=== PATIENT | female | born 1980 | race Caucasian/White ===

== ENCOUNTER → 2016-12-12 | Outpatient (CLI) | payer BC | LOC: M PAIN 13:20 | PROVIDERS: ATTEND Nurse Practitioner Family | DX: Z09 Encounter for follow-up examination after completed treatment for conditions other than malignant neoplasm (principal); G89.29 Other chronic pain; M79.1 Myalgia; M50.93 Cervical disc disorder, unspecified, cervicothoracic region; M54.5 Low back pain; G43.909 Migraine, unspecified, not intractable, without status migrainosus; E03.9 Hypothyroidism, unspecified; G40.A09 Absence epileptic syndrome, not intractable, without status epilepticus; F32.9 Major depressive disorder, single episode, unspecified; F41.9 Anxiety disorder, unspecified; J45.990 Exercise induced bronchospasm; Z88.2 Allergy status to sulfonamides; Z88.5 Allergy status to narcotic agent; Z88.8 Allergy status to other drugs, medicaments and biological substances; Z79.899 Other long term (current) drug therapy ==

== ENCOUNTER → 2016-12-21 | Outpatient (CLI) | payer BC ==
--- NOTE | 2016-12-23 08:40 | REP ---
MR LUMBAR SPINE WITHOUT CONTRAST: HISTORY: Back pain. Decreased signal intensity on T2-weighted images is present in the L4-5 intervertebral disc. The disc is decreased in height. These findings are consistent with disc degeneration. There is no disc bulge or herniation at the L1-2 through L3-4 and L5-S1 levels. There is hypertrophy of the posterior articulating facets at the L5-S1 level. The nerves exit the neural foramina without compression. A diffuse disc bulge is present at the L4-5 level. There is minimal compression of the thecal sac. The L4 nerves exit the neural foramina without compression. The conus medullaris is normal in appearance terminating at the level of the T12-L1 intervertebral disc. Normal signal intensity is present in the lumbar vertebral bodies. IMPRESSION: Diffuse disc bulge at the L4-5 level with minimal thecal sac compression. Signed by Olivier Navarro MD 12/23/2016 08:53 A
== END ==
LOC: M RAD 09:14
PROVIDERS: ATTEND Nurse Practitioner Family
DX: M51.26 Other intervertebral disc displacement, lumbar region (principal)

== ENCOUNTER → 2017-01-15 | Outpatient (CLI) | payer BC ==
--- NOTE | 2017-01-24 00:28 | ECWPNPC ---
PATIENT NAME: EILEEN MARCUS : 1980 GENDER: FEMALE VISIT DATE: 01/15/2017 DISCHARGE DATE: 01/15/17 1018 VISIT LOCKED DATE TIME: PHYSICIAN: YESENIA GARCIA RESOURCE: YESENIA GARCIA REASON FOR APPOINTMENT 1. POPST MRI-BACK HISTORY OF PRESENT ILLNESS HISTORY OF PRESENT ILLNESS: PAIN THE PATIENT DESCRIBES THE PAIN... FALL RISK SCREENING: SCREENING :NO FALLS IN THE PAST YEAR TODAY'S VISIT: NOTES: RATES PAIN TODAY 5/10. DESCRIBES PAIN INTERMITTENT ACHING AND SORE PAIN IS CENTERED IN LOW BACK WITH RADIATION TO BILATERAL HIPS. NO RADIATION TO LEGS. IS HAVING SPASMS WHICH CAN MAKE HER STOP WALKING WHICH ARE CENTERED IN LOW BACK. DENIES ANY NUMBNESS OR TINGLING INTO THE LEGS OR FEET.. CURRENT MEDICATIONS TAKING VITAMIN D3 5000 UNIT TABLET 1 TABLET ORALLY ONCE A DAY TAKING AMETHIA 0.15-0.03 &0.01 MG TABLET 1 TABLET ORALLY ONCE A DAY TAKING KEPPRA 500 MG TABLET 1 TAB ORALLY EVERY 12 HRS TAKING BUSPAR 10 MG TABLET 1 TABLET ORALLY TWICE A DAY TAKING ADDERALL 15 MG TABLET 1 TABLET IN THE MORNING ORALLY ONCE A DAY TAKING EFFEXOR 75 MG TABLET 1 TABLET WITH FOOD ORALLY ONE IN MORNING, 2 AT NIGHT TAKING ABILIFY 5 MG TABLET 1 TABLET ORALLY ONCE A DAY TAKING SYNTHROID 125 MCG TABLET 1 TABLET ORALLY ONCE A DAY TAKING PROPRANOLOL HCL 10 MG TABLET 1 TABLET ORALLY BEFORE BEDTIME TAKING L-METHYLFOLATE FORTE 15-90.314 MG CAPSULE 1 CAPSULE ORALLY ONCE A DAY TAKING MAXALT-CONTACT LENS FLASHING PUNCHER 10 MG TABLET DISPERSIBLE 1 TABLET ON THE TONGUE AND ALLOW TO DISSOLVE NEEDED ONE TIME ORALLY ONCE A DAY TAKING EXCEDRIN MIGRAINE 250-250-65 MG TABLET 2 TABLETS NEEDED ORALLY EVERY 6 HRS TAKING XANAX 0.5 MG TABLET 1 TABLET ORALLY DAILY NEEDED, NOTES: NONE LATELY TAKING VENTOLIN HFA 108 (90 BASE) MCG/ACT AEROSOL SOLUTION 2 PUFFS NEEDED INHALATION EVERY 4 HRS, NOTES: NONE LATELY TAKING PRAZOSIN HCL 1 MG CAPSULE 1 CAPSULE AT BEDTIME ORALLY ONCE A DAY DISCONTINUED BELSOMRA TABLET ORALLY 20 MG AT BEDTIME, NOTES: 11/12/16 DISCONTINUED REMERON 30 MG TABLET 1 TABLET BEFORE BEDTIME IN THE EVENING ORALLY ONCE A DAY DISCONTINUED HYDROXYZINE HCL 50 MG TABLET 2 TABLET NEEDED ORALLY BEFORE BEDTIME DISCONTINUED TEMAZEPAM 30 MG CAPSULE 1 CAPSULE AT BEDTIME NEEDED ORALLY ONCE A DAY MEDICATION LIST REVIEWED AND RECONCILED WITH THE PATIENT PAST MEDICAL HISTORY RECURRENT FEVER MIGRAINES HYPOTHYROIDISM ABSENT SEIZURES ANXIETY DEPRESSION CHRONIC NECK AND LOW BACK PAIN EXERCISE-INDUCED INHALER KIDNEY STONES ALLERGIES SULFA (FOR ALLERGY USE ONLY): RASH: ALLERGY LAMICTAL: RASH: ALLERGY VICODIN: VOMITING: SIDE EFFECTS SURGICAL HISTORY TONSILLECTOMY ABOUT 1984 ADENOIDS REMOVED ABOUT 1984 ROSHNI PLANTAR FASCITIS RELEASE 2012 OR 2013 SOCIAL HISTORY GENERAL: TOBACCO USE ARE YOU A:NONSMOKER LEARNING BARRIERS / SPECIAL NEEDS ORIENTED TO PLAN OF CARE: PATIENT, PAIN MANAGEMENT PATIENT, ORIENTED TO PLAN OF CARE: PATIENT, PAIN MANAGEMENT PATIENT. NEW PATIENT PAIN DIARY TODAY'S VISITNOTES FROM 0-10, WHAT LEVEL IS YOUR PAIN TODAY?0 PAIN CLINIC PFS, CLERGY, PUBLIC HEALTH REFERRALS PFS REFERRAL NEEDED?NO CLERGY REFERRAL NEEDED?NO PUBLIC HEALTH REFERRAL NEEDED?NO WAS THE PROVIDER NOTIFIED OF ANY PERTINENT INFO?NO PFS REFERRAL NEEDED?NO CLERGY REFERRAL NEEDED?NO PUBLIC HEALTH REFERRAL NEEDED?NO WAS THE PROVIDER NOTIFIED OF ANY PERTINENT INFO?NO HOSPITALIZATION/MAJOR DIAGNOSTIC PROCEDURE RELATED TO SURGERY CHILDBIRTH 2007 REVIEW OF SYSTEMS CONSTITUTIONAL: ANY CHANGE IN YOUR MEDICAL CONDITION? NO . PATIENT COMPLAINING OF INCEREASED FREQUENCY AND URGENCY. NO SIGNS OF UTI. . CHILLS NO . FEVER NO . INFECTION: DO YOU HAVE NEW INFECTIONS? NO . DO YOU HAVE HISTORY OF MRSA? NO . MUSCULOSKELETAL: ANY NEW PATTERNS OF PAIN OR NUMBNESS? NO . GASTROENTEROLOGY: ANY NEW CHANGE IN BOWEL CONTROL? NO . GENITOURINARY: ANY NEW CHANGE IN BLADDER CONTROL? NO . IS THERE A CHANCE YOU COULD BE ? NO . HEMATOLOGY/LYMPH: DO YOU TAKE ANY BLOOD THINNERS? (FOR EXAMPLE- COUMADIN, PLAVIX, AGGRENOX, PLATEL, PRADAXA, OR XARELTO) NO . WHEN WAS YOUR LAST DOSE? DATE: TIME: . NEUROLOGY: HAVE YOU FALLEN IN THE PAST 6 MONTHS? NO . ANY NEW EXTREMITY NUMBNESS OR WEAKNESS? NO . CARDIOLOGY: DO YOU HAVE A PACEMAKER OR DEFIBRILLATOR? NO . RESPIRATORY: HAVE YOU BEEN SICK IN THE PAST WEEK? NO . FEVER NO . FLU LIKE SYMPTOMS? NO . COUGH NO . INTEGUMENTARY: DO YOU HAVE ANY RASHES OR OPEN SORES? NO . ALLERGIC/IMMUNO: ARE YOU ALLERGIC TO SHELLFISH OR IV DYE? NO . ANY NEW ALLERGIES? NO . PSYCHIATRIC: DO YOU HAVE THOUGHTS OF HURTING YOURSELF OR SOMEONE ELSE? NO . ARE YOU ABUSED, NEGLECTED, OR IN AN UNSAFE ENVIRONMENT? NO . ENDOCRINOLOGY: ARE YOU DIABETIC? NO . OTHER: DO YOU NEED ANY PRESCRIPTIONS? NO . IF YES, PLEASE LIST: ____ . ANY NEW PROBLEMS WITH YOUR MEDICATIONS? NO . WHEN DID YOU LAST EAT? ____ . WHEN DID YOU LAST DRINK? ____ . WHAT DID YOU LAST DRINK? ____ . NAME OF PERSON DRIVING YOU HOME? ____ . DO YOU HAVE ANY OTHER QUESTIONS OR CONCERNS NO . REVIEWED BY: PROVIDER: YESENIA GONZALEZ . VITAL SIGNS WT 250 LBS, HT 63", BMI 44.28 INDEX, BP 125/86 MM HG, HR 91 /MIN, RR 16 /MIN, TEMP 98.0 F, OXYGEN SAT % 100, NA INITIALS TL 0931. EXAMINATION GENERAL EXAMINATION: PSYCHALERT , ORIENTED X 3 , APPROPRIATE MOOD AND AFFECT . LUNGS:CLEAR TO AUSCULTATION BILATERALLY. HEART:HEART RATE REGULAR. MUSCULOSKELETAL:CAN FLEX TO 45 DEGREES, EXTEND TO 5 DEGREES AND ROTATE APPROXIMATELY 50%., POINT TENDERNESS OVER LUMBAR SPINOUS PROCESSES AND ACROSS THE LUMBOSACRAL AXIS. TRIGGER POINTS AND TIGHT FIBROUS BANDS ARE IDENTIFIED OVER LUMBAR PARAVERTEBRAL MUSCLES AND ACROSS THE SACRUM. DECREASED RANGE OF MOTION IS NOTED WITH FLEXION AND EXTENSION AND ROTATION. POSTURE IS UPRIGHT GAIT IS SLOW BUT NONANTALGIC. MUSCLE STRENGTH TESTING 5/5 BILATERAL LOWER EXTREMITIES. . DIAGNOSTIC TESTS REVIEWEDMRI OF LUMBAR SPINE COMPLETED 12/21/16. REVIEWED - DEMONSTRATES DIFFUSE DISC BULGE AT THE L4-5 LEVEL WITH MIN THECAL SAC COMPRESSION. THERE IS ALSO HYPERTROPHY AT THE L1-2 THROUGH L3-4 AND L5-S1 LEVELS . ASSESSMENTS LUMBAR FACET ARTHROPATHY - M12.88 (PRIMARY) MYALGIA - M79.1 LOW BACK PAIN - M54.5 TREATMENT LUMBAR FACET ARTHROPATHY INJECTION FACET JOINT/NERVE REHAN/YESENIA CRANDALL 01/15/2017 10:02:21 AM > BILATERAL THERAPEUTIC NOTES: PHYSICAL ACTIVITY 10 MINUTES A DAY.,FACET JOINT INJECTION: YOUR EXPERIENCE MATERIAL WAS PRINTED. PROCEDURE CODES FA211 ESTABILISHED PATIENT [facility] FACILITY CHARGE DISPOSITION & COMMUNICATION FOLLOW UP AFTER INJECTION (REASON: CHECK AUTH FOR BILATERAL LUMBAR FACET BLOCK- THERAPEUTIC) ELECTRONICALLY SIGNED BY ANGEL BARKER ON 01/23/2017 AT 09:13 AM EST DISCLAIMER : THIS IS A VISIT SUMMARY EXTRACTED FROM THE [employer] CHART. IT IS NOT A COPY OF THE [employer] PROGRESS NOTE. CRYSTAL
== END ==
LOC: M PAIN 09:00
PROVIDERS: ATTEND Nurse Practitioner Family
DX: Z09 Encounter for follow-up examination after completed treatment for conditions other than malignant neoplasm (principal); G89.29 Other chronic pain; M12.88 Other specific arthropathies, not elsewhere classified, other specified site; M79.1 Myalgia; M50.93 Cervical disc disorder, unspecified, cervicothoracic region; E03.9 Hypothyroidism, unspecified; F41.9 Anxiety disorder, unspecified; F32.9 Major depressive disorder, single episode, unspecified; J45.990 Exercise induced bronchospasm; M51.26 Other intervertebral disc displacement, lumbar region; Z88.2 Allergy status to sulfonamides; Z88.5 Allergy status to narcotic agent; Z88.8 Allergy status to other drugs, medicaments and biological substances; Z79.899 Other long term (current) drug therapy; Z86.69 Personal history of other diseases of the nervous system and sense organs

== ENCOUNTER → 2017-02-06 | Outpatient (CLI) | payer BC ==
[~2017-02-06] MED LIST: BUPIVACAINE HCL 0.25% 30 ML VIAL As Ordered ONE; ISOVUE-M 300 61% 15ML VIAL (Q9967) As Ordered ONE; LIDOCAINE 1% SDV INJ 30 ML VIAL As Ordered ONE; ONDANSETRON 4MG/2ML VIAL (J2405) As Ordered ONE; TRIAMCINOLONE ACETONIDE SUSP 40 MG/ML VIAL (J3301) As Ordered ONE; diazePAM 5 MG TAB As Ordered ONE; oxyCODONE 5MG TAB As Ordered ONE
--- NOTE | 2017-02-06 15:04 | REP ---
PARTIAL SI JOINT SERIES: FOUR VIEWS. HISTORY: Injection procedure for pain. 46 seconds of fluoroscopy time is reported. FINDINGS: A sequence of four fluoroscopically-obtained procedural spot radiographs of the SI joints bilaterally document various needle positions and contrast injections associated with SI joint injection procedure. Signed by Neil Baeza MD 02/06/2017 04:27 P
--- NOTE | 2017-02-15 23:28 | ECWPNPC ---
PATIENT NAME: EILEEN MARCUS : 1980 GENDER: FEMALE VISIT DATE: 02/06/2017 DISCHARGE DATE: 02/06/17 1414 VISIT LOCKED DATE TIME: PHYSICIAN: LOTUS ROBERT RESOURCE: LOTUS ROBERT REASON FOR APPOINTMENT 1. BILATERAL THER. FACET HISTORY OF PRESENT ILLNESS HISTORY OF PRESENT ILLNESS: PAIN THE PATIENT DESCRIBES THE PAIN... FALL RISK SCREENING: SCREENING :NO FALLS IN THE PAST YEAR CURRENT MEDICATIONS TAKING VITAMIN D3 5000 UNIT TABLET 1 TABLET ORALLY ONCE A DAY, NOTES: 02-05-17 PM TAKING AMETHIA 0.15-0.03 &0.01 MG TABLET 1 TABLET ORALLY ONCE A DAY, NOTES: 02-05-17 PM TAKING KEPPRA 500 MG TABLET 1 TAB ORALLY EVERY 12 HRS, NOTES: 02-06-17899 TAKING BUSPAR 10 MG TABLET 1 TABLET ORALLY TWICE A DAY, NOTES: 02-06-17899 TAKING ADDERALL 15 MG TABLET 1 TABLET IN THE MORNING ORALLY ONCE A DAY, NOTES: 02-06-17899 TAKING EFFEXOR 75 MG TABLET 1 TABLET WITH FOOD ORALLY TWO IN MORNING, 1 AT NIGHT, NOTES: 02-06-17899 TAKING ABILIFY 5 MG TABLET 1 TABLET ORALLY ONCE A DAY, NOTES: 02-05-17 PM TAKING SYNTHROID 125 MCG TABLET 1 TABLET ORALLY ONCE A DAY, NOTES: 02-06-17899 TAKING PROPRANOLOL HCL 10 MG TABLET 1 TABLET ORALLY BEFORE BEDTIME, NOTES: 02-05-17 PM TAKING L-METHYLFOLATE FORTE 15-90.314 MG CAPSULE 1 CAPSULE ORALLY ONCE A DAY, NOTES: 02-06-17899 TAKING MAXALT-STRINGING MACHINE OPERATOR 10 MG TABLET DISPERSIBLE 1 TABLET ON THE TONGUE AND ALLOW TO DISSOLVE NEEDED ONE TIME ORALLY ONCE A DAY, NOTES: NONE TAKING EXCEDRIN MIGRAINE 250-250-65 MG TABLET 2 TABLETS NEEDED ORALLY EVERY 6 HRS, NOTES: NONE TAKING XANAX 0.5 MG TABLET 1 TABLET ORALLY DAILY NEEDED, NOTES: NONE LATELY TAKING VENTOLIN HFA 108 (90 BASE) MCG/ACT AEROSOL SOLUTION 2 PUFFS NEEDED INHALATION EVERY 4 HRS, NOTES: NONE LATELY TAKING PRAZOSIN HCL 1 MG CAPSULE 1 CAPSULE AT BEDTIME ORALLY ONCE A DAY, NOTES: 02-05-17899 MEDICATION LIST REVIEWED AND RECONCILED WITH THE PATIENT PAST MEDICAL HISTORY RECURRENT FEVER MIGRAINES HYPOTHYROIDISM ABSENT SEIZURES ANXIETY DEPRESSION CHRONIC NECK AND LOW BACK PAIN EXERCISE-INDUCED INHALER KIDNEY STONES ALLERGIES SULFA (FOR ALLERGY USE ONLY): RASH: ALLERGY LAMICTAL: RASH: ALLERGY VICODIN: VOMITING: SIDE EFFECTS SOCIAL HISTORY GENERAL: TOBACCO USE ARE YOU A:NONSMOKER LEARNING BARRIERS / SPECIAL NEEDS ORIENTED TO PLAN OF CARE: PATIENT, PAIN MANAGEMENT PATIENT, ORIENTED TO PLAN OF CARE: PATIENT, PAIN MANAGEMENT PATIENT. NEW PATIENT PAIN DIARY TODAY'S VISITNOTES FROM 0-10, WHAT LEVEL IS YOUR PAIN TODAY?0 PAIN CLINIC PFS, CLERGY, PUBLIC HEALTH REFERRALS PFS REFERRAL NEEDED?NO CLERGY REFERRAL NEEDED?NO PUBLIC HEALTH REFERRAL NEEDED?NO WAS THE PROVIDER NOTIFIED OF ANY PERTINENT INFO?NO PFS REFERRAL NEEDED?NO CLERGY REFERRAL NEEDED?NO PUBLIC HEALTH REFERRAL NEEDED?NO WAS THE PROVIDER NOTIFIED OF ANY PERTINENT INFO?NO REVIEW OF SYSTEMS CONSTITUTIONAL: ANY CHANGE IN YOUR MEDICAL CONDITION? NO . CHILLS NO . FEVER NO . INFECTION: DO YOU HAVE NEW INFECTIONS? NO . DO YOU HAVE HISTORY OF MRSA? NO . MUSCULOSKELETAL: ANY NEW PATTERNS OF PAIN OR NUMBNESS? NO . GASTROENTEROLOGY: ANY NEW CHANGE IN BOWEL CONTROL? NO . GENITOURINARY: ANY NEW CHANGE IN BLADDER CONTROL? NO . IS THERE A CHANCE YOU COULD BE ? NO . HEMATOLOGY/LYMPH: DO YOU TAKE ANY BLOOD THINNERS? (FOR EXAMPLE- COUMADIN, PLAVIX, AGGRENOX, PLATEL, PRADAXA, OR XARELTO) NO . WHEN WAS YOUR LAST DOSE? DATE: TIME: . NEUROLOGY: HAVE YOU FALLEN IN THE PAST 6 MONTHS? YES . ANY NEW EXTREMITY NUMBNESS OR WEAKNESS? NO . CARDIOLOGY: DO YOU HAVE A PACEMAKER OR DEFIBRILLATOR? NO . RESPIRATORY: HAVE YOU BEEN SICK IN THE PAST WEEK? NO . FEVER NO . FLU LIKE SYMPTOMS? NO . COUGH NO . INTEGUMENTARY: DO YOU HAVE ANY RASHES OR OPEN SORES? NO . ALLERGIC/IMMUNO: ARE YOU ALLERGIC TO SHELLFISH OR IV DYE? NO . ANY NEW ALLERGIES? NO . PSYCHIATRIC: DO YOU HAVE THOUGHTS OF HURTING YOURSELF OR SOMEONE ELSE? NO . ARE YOU ABUSED, NEGLECTED, OR IN AN UNSAFE ENVIRONMENT? NO . ENDOCRINOLOGY: ARE YOU DIABETIC? NO . OTHER: DO YOU NEED ANY PRESCRIPTIONS? NO . IF YES, PLEASE LIST: ____ . ANY NEW PROBLEMS WITH YOUR MEDICATIONS? NO . WHEN DID YOU LAST EAT? 3-9-17 0330 . WHEN DID YOU LAST DRINK? 02-06-17 0900 . WHAT DID YOU LAST DRINK? WATER . NAME OF PERSON DRIVING YOU HOME? LILA SYLVER . DO YOU HAVE ANY OTHER QUESTIONS OR CONCERNS NO . REVIEWED BY: PROVIDER: . VITAL SIGNS WT 250 LBS, HT 63", BMI 44.28 INDEX, BP 128/84 MM HG, HR 84 /MIN, RR 18 /MIN, TEMP 97.0 F, OXYGEN SAT % 99, NA INITIALS TL 1108, REVIEWED BY: CM. ASSESSMENTS SACROILIITIS, NOT ELSEWHERE CLASSIFIED - M46.1 (PRIMARY) PROCEDURES PN SI PRE PROCEDURE DIAGNOSIS SACROILIITIS, SACROILIAC JOINT DYSFUNCTION POST PROCEDURE DIAGNOSIS SACROILIITIS, SACROILIAC JOINT DYSFUNCTION PROCEDURE ., BILATERAL SACROILIAC JOINT BLOCK SURGEON DR. LOTUS ROBERT LAW SECRETARY NONE ANESTHESIA LOCAL PRE PROCEDURE NOTE PATIENT WITH HISTORY OF CHRONIC LOW BACK PAIN. I EVALUATED THE PATIENT AND REVIEWED THE CHART. I WENT OVER THE RISKS, ALTERNATIVES, AND BENEFITS ASSOCIATED WITH THIS PROCEDURE. THE PATIENT WOULD LIKE TO PROCEED AND GAVE CONSENT TO PERFORM THE PROCEDURE. THE PATIENT DENIES UNEXPLAINABLE WEIGHT LOSS, FEVER, CHILLS, OR NEW CHANGES IN URINARY OR BOWEL CONTROL. DESCRIPTION OF PROCEDURE THE PATIENT WAS BROUGHT TO THE PROCEDURE ROOM AND PLACED IN THE PRONE POSITION. THE LUMBOSACRAL AREA WAS CLEANED WITH CHLORAPREP SOLUTION AND DRAPED ASEPTICALLY. THE PROCEDURE WAS DONE UNDER STERILE CONDITIONS. I CHECKED LATERALITY AND THE LEVEL WHERE THE PROCEDURE WAS GOING TO BE PERFORMED WITH THE PATIENT AND THE SUPPORTING STAFF AT THE MOMENT OF THE TIME OUT IN THE PROCEDURE ROOM. UNDER FLUOROSCOPIC GUIDANCE, TARGET POINT WAS SELECTED AT THE LOWER BORDER OF THE RIGHT AND LEFT SACROILIAC JOINT. TARGET POINT WAS SELECTED AFTER MEDIAL ROTATION AND TILT OF THE MAGNIFIER OF THE C-ARM. LIDOCAINE WAS USED TO NUMB THE SKIN AND SUBCUTANEOUS TISSUE BELOW IT. A SPINAL NEEDLE, 22-GAUGE, WAS ADVANCED UNDER FLUOROSCOPIC GUIDANCE AND FOLLOWING PATIENT FEEDBACK UNTIL THE TARGET AREA WAS TOUCHED. THE POSITION OF THE NEEDLE WAS VERIFIED WITH AP AND LATERAL VIEWS. AFTER PROPER POSITION OF THE NEEDLE WAS ACHIEVED, ISOVUE M DYE 30%, 0.25 ML, WAS INJECTED SHOWING SPREAD OF THE DYE. THEN, A SOLUTION OF 20 MG OF KENALOG WAS INJECTED IN RIGHT JOINT WITH 3 ML OF BUPIVACAINE 0.125%. THERE WAS NO EVIDENCE OF BLOOD, PARESTHESIA OR CEREBROSPINAL FLUID DURING THE PROCEDURE. THE PATIENT WAS SENT TO THE RECOVERY ROOM. THE PATIENT WAS MOVING THE EXTREMITIES AND DOING WELL. THERE WAS NO COMPLICATION DURING THE PROCEDURE. FLUOROSCOPY TIME WAS 46 SECONDS POST PROCEDURE NOTE THE PATIENT WILL BE SEEN IN A FOLLOW UP IN THE NEXT FEW WEEKS. INSTRUCTIONS WERE GIVEN, QUESTIONS WERE ANSWERED, AND THE PATIENT EXPRESSED UNDERSTANDING AND AGREED WITH THE PLAN. INSTRUCTIONS WERE GIVEN, QUESTIONS WERE ANSWERED, PATIENT REPORTS UNDERSTANDING AND AGREES WITH THE PLAN. I, BUTCH LAURENT, DOCUMENTED THE ABOVE INFORMATION ACTING A SCRIBE FOR DR. ROBERT. I HAVE REVIEWED THE ABOVE DOCUMENT, WRITTEN BY BUTCH LAURENT SCRIBE AND I VERIFY THAT IT IS ACCURATE. DIAGNOSTIC IMAGING [facility] FLUORO GUIDANCE (PAIN)[id number] PROCEDURE CODES 20213 INJECT SACROILIAC JOINT 6045F RADXPS IN END [id number] PXD DISPOSITION & COMMUNICATION FOLLOW UP 3 WEEKS ELECTRONICALLY SIGNED BY LOTUS ROBERT MD ON 02/15/2017 AT 08:41 PM EDT DISCLAIMER : THIS IS A VISIT SUMMARY EXTRACTED FROM THE [employer] CHART. IT IS NOT A COPY OF THE [employer] PROGRESS NOTE. MTDSoto
== END ==
LOC: M PAIN 11:10
PROVIDERS: ATTEND Anesthesiology
DX: G89.29 Other chronic pain (principal); M46.1 Sacroiliitis, not elsewhere classified; G43.909 Migraine, unspecified, not intractable, without status migrainosus; E03.9 Hypothyroidism, unspecified; F32.9 Major depressive disorder, single episode, unspecified; F41.9 Anxiety disorder, unspecified; Z88.2 Allergy status to sulfonamides; Z88.5 Allergy status to narcotic agent; Z88.8 Allergy status to other drugs, medicaments and biological substances; Z79.01 Long term (current) use of anticoagulants; Z79.899 Other long term (current) drug therapy
CPT/HCPCS: G0260; J2405; J3301; Q9967

== ENCOUNTER → 2017-02-20 | Outpatient (CLI) | payer BC ==
--- NOTE | 2017-03-01 00:30 | ECWPNPC ---
PATIENT NAME: EILEEN MARCUS : 1980 GENDER: FEMALE VISIT DATE: 02/20/2017 DISCHARGE DATE: 02/20/17 1142 VISIT LOCKED DATE TIME: PHYSICIAN: YESENIA GARCIA RESOURCE: YESENIA GARCIA REASON FOR APPOINTMENT 1. POST PROCEDURE HISTORY OF PRESENT ILLNESS HISTORY OF PRESENT ILLNESS: PAIN THE PATIENT DESCRIBES THE PAIN... THE PATIENT DESCRIBES THE PAIN... PAIN THE PATIENT DESCRIBES THE PAIN... THE PATIENT DESCRIBES THE PAIN... FALL RISK SCREENING: SCREENING :NO FALLS IN THE PAST YEAR :NO FALLS IN THE PAST YEAR SCREENING :NO FALLS IN THE PAST YEAR :NO FALLS IN THE PAST YEAR TODAY'S VISIT: NOTES: S/P BILATERAL SACRAL ILIAC JOINT INJECTION ON 02/05/17. PAIN IS MUCH IMPROVEMENT. IS HAVING SOME DISCOMFORT IN NITE WHEN LAYING DOWN BUT THIS RESOLVES. RATES PAIN TODAY 2/10. DESCRIBES PAIN INTERMITTANT, ACHING TENDER AND SORE.. CURRENT MEDICATIONS TAKING VITAMIN D3 5000 UNIT TABLET 1 TABLET ORALLY ONCE A DAY, NOTES: 02-05-17 PM TAKING AMETHIA 0.15-0.03 &0.01 MG TABLET 1 TABLET ORALLY ONCE A DAY, NOTES: 02-05-17 PM TAKING KEPPRA 500 MG TABLET 1 TAB ORALLY EVERY 12 HRS, NOTES: 02-06-1700 TAKING BUSPAR 10 MG TABLET 1 TABLET ORALLY TWICE A DAY, NOTES: 02-06-17899 TAKING ADDERALL 15 MG TABLET 1 TABLET IN THE MORNING ORALLY ONCE A DAY, NOTES: 02-06-17899 TAKING EFFEXOR 75 MG TABLET 1 TABLET WITH FOOD ORALLY TWO IN MORNING, 1 AT NIGHT, NOTES: 02-06-17899 TAKING SYNTHROID 125 MCG TABLET 1 TABLET ORALLY ONCE A DAY, NOTES: 02-06-17899 TAKING PROPRANOLOL HCL 10 MG TABLET 1 TABLET ORALLY BEFORE BEDTIME, NOTES: 02-05-17 PM TAKING L-METHYLFOLATE FORTE 15-90.314 MG CAPSULE 1 CAPSULE ORALLY ONCE A DAY, NOTES: 02-06-1700 TAKING MAXALT-NUCLEAR POWERPLANT MECHANIC 10 MG TABLET DISPERSIBLE 1 TABLET ON THE TONGUE AND ALLOW TO DISSOLVE NEEDED ONE TIME ORALLY ONCE A DAY, NOTES: NONE TAKING EXCEDRIN MIGRAINE 250-250-65 MG TABLET 2 TABLETS NEEDED ORALLY EVERY 6 HRS, NOTES: NONE TAKING VENTOLIN HFA 108 (90 BASE) MCG/ACT AEROSOL SOLUTION 2 PUFFS NEEDED INHALATION EVERY 4 HRS, NOTES: NONE LATELY TAKING PRAZOSIN HCL 5 MG CAPSULE 1 CAPSULE AT BEDTIME ORALLY ONCE A DAY, NOTES: 02-05-17 0900 TAKING REXULTI 0.5 MG TABLET 1 TABLET ORALLY ONCE A DAY TAKING MYRBETRIQ 50 MG TABLET 1 TABLET ORALLY ONCE A DAY DISCONTINUED ABILIFY 5 MG TABLET 1 TABLET ORALLY ONCE A DAY, NOTES: 02-05-17 PM DISCONTINUED XANAX 0.5 MG TABLET 1 TABLET ORALLY DAILY NEEDED, NOTES: NONE LATELY MEDICATION LIST REVIEWED AND RECONCILED WITH THE PATIENT PAST MEDICAL HISTORY RECURRENT FEVER MIGRAINES HYPOTHYROIDISM ABSENT SEIZURES ANXIETY DEPRESSION CHRONIC NECK AND LOW BACK PAIN EXERCISE-INDUCED INHALER KIDNEY STONES STRESS INCONTINENCE ALLERGIES SULFA (FOR ALLERGY USE ONLY): RASH: ALLERGY LAMICTAL: RASH: ALLERGY VICODIN: VOMITING: SIDE EFFECTS REVIEW OF SYSTEMS CONSTITUTIONAL: ANY CHANGE IN YOUR MEDICAL CONDITION? NO, . CHILLS NO . FEVER NO . INFECTION: DO YOU HAVE NEW INFECTIONS? NO, . DO YOU HAVE HISTORY OF MRSA? NO . MUSCULOSKELETAL: ANY NEW PATTERNS OF PAIN OR NUMBNESS? NO . GASTROENTEROLOGY: ANY NEW CHANGE IN BOWEL CONTROL? NO . GENITOURINARY: ANY NEW CHANGE IN BLADDER CONTROL? YES, STRESS INCONTINENCE--GOT WORSE AFTER THE SIJ INJECTIONS . IS THERE A CHANCE YOU COULD BE ? NO . HEMATOLOGY/LYMPH: DO YOU TAKE ANY BLOOD THINNERS? (FOR EXAMPLE- COUMADIN, PLAVIX, AGGRENOX, PLATEL, PRADAXA, OR XARELTO) NO . WHEN WAS YOUR LAST DOSE? DATE: TIME: , DATE: TIME: . NEUROLOGY: HAVE YOU FALLEN IN THE PAST 6 MONTHS? YES, IN JAN. SLIPPED ON ICE--NO INJURY . ANY NEW EXTREMITY NUMBNESS OR WEAKNESS? NO . CARDIOLOGY: DO YOU HAVE A PACEMAKER OR DEFIBRILLATOR? NO . RESPIRATORY: HAVE YOU BEEN SICK IN THE PAST WEEK? NO . FEVER NO, NO . FLU LIKE SYMPTOMS? NO . COUGH NO . INTEGUMENTARY: DO YOU HAVE ANY RASHES OR OPEN SORES? NO . ALLERGIC/IMMUNO: ARE YOU ALLERGIC TO SHELLFISH OR IV DYE? NO . ANY NEW ALLERGIES? NO . PSYCHIATRIC: DO YOU HAVE THOUGHTS OF HURTING YOURSELF OR SOMEONE ELSE? NO . ARE YOU ABUSED, NEGLECTED, OR IN AN UNSAFE ENVIRONMENT? NO . ENDOCRINOLOGY: ARE YOU DIABETIC? NO . OTHER: DO YOU NEED ANY PRESCRIPTIONS? NO . IF YES, PLEASE LIST: ____, ____ . ANY NEW PROBLEMS WITH YOUR MEDICATIONS? NO . WHEN DID YOU LAST EAT? ____, ____ . WHEN DID YOU LAST DRINK? ____, ____ . WHAT DID YOU LAST DRINK? ____, ____ . NAME OF PERSON DRIVING YOU HOME? ____, ____ . DO YOU HAVE ANY OTHER QUESTIONS OR CONCERNS NO . UROLOGY: GENERAL IS HAVING STRESS INCONT - STARTED ON MYBETRIC BY PCP. . REVIEWED BY: PROVIDER: YESENIA GONZALEZ . VITAL SIGNS WT 241.2 LBS, HT 63", BMI 42.72 INDEX, BP 136/87 MM HG, HR 107 /MIN, RR 16 /MIN, TEMP 97.8 F, OXYGEN SAT % 96%, NA INITIALS SC 11:13, REVIEWED BY: AD. EXAMINATION GENERAL EXAMINATION: PSYCHALERT , ORIENTED X 3 , APPROPRIATE MOOD AND AFFECT . LUNGS:CLEAR TO AUSCULTATION BILATERALLY. HEART:HEART RATE REGULAR. MUSCULOSKELETAL:MILD TENDERNESS WITH PALPATION ACROSS THE LUMBOSACRAL AXIS. FEW TRIGGERPOINTS ARE IDENTIFIES ACROSS THE SACRUM. RISES EASILY TO STANDING POSITION. POSTURE UPRIGHT, GAIT NONANTALGIC. 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 DISPOSITION & COMMUNICATION FOLLOW UP 6 MONTHS ELECTRONICALLY SIGNED BY ANGEL BARKER ON 02/28/2017 AT 06:40 PM EDT DISCLAIMER : THIS IS A VISIT SUMMARY EXTRACTED FROM THE [employer] CHART. IT IS NOT A COPY OF THE [employer] PROGRESS NOTE. CRYSTAL
== END ==
LOC: M PAIN 11:00
PROVIDERS: ATTEND Nurse Practitioner Family
DX: Z09 Encounter for follow-up examination after completed treatment for conditions other than malignant neoplasm (principal); G89.29 Other chronic pain; M46.1 Sacroiliitis, not elsewhere classified; M12.88 Other specific arthropathies, not elsewhere classified, other specified site; M79.1 Myalgia; E03.9 Hypothyroidism, unspecified; G40.309 Generalized idiopathic epilepsy and epileptic syndromes, not intractable, without status epilepticus; G43.909 Migraine, unspecified, not intractable, without status migrainosus; F41.9 Anxiety disorder, unspecified; F32.9 Major depressive disorder, single episode, unspecified; J45.990 Exercise induced bronchospasm; N39.3 Stress incontinence (female) (male); Z88.2 Allergy status to sulfonamides; Z88.5 Allergy status to narcotic agent; Z88.8 Allergy status to other drugs, medicaments and biological substances; Z79.899 Other long term (current) drug therapy

== ENCOUNTER → 2017-03-18 | Outpatient (CLI) | payer BC ==
--- NOTE | 2017-04-01 00:17 | ECWPNPC ---
PATIENT NAME: EILEEN MARCUS : 1980 GENDER: FEMALE VISIT DATE: 03/18/2017 DISCHARGE DATE: 03/18/17 1106 VISIT LOCKED DATE TIME: PHYSICIAN: YESENIA GARCIA RESOURCE: YESENIA GARCIA REASON FOR APPOINTMENT 1. NECK AND BACK HISTORY OF PRESENT ILLNESS HISTORY OF PRESENT ILLNESS: PAIN THE PATIENT DESCRIBES THE PAIN... FALL RISK SCREENING: SCREENING :NO FALLS IN THE PAST YEAR TODAY'S VISIT: NOTES: WAS FINE UNTIL 03/16/16 WHEN SHE SLIPPED AND FELL IN SHOWER. STATES FELL INTO FAUCET AND HURT BACK RIGHT ANKLE SWOLLEN AND SORE. SAW URGENT CARE WHERE THEY DID XRAYS. HAS PREVIOUSLY SPRAINED SAME ANKLE X 2. RATES PAIN 5/10. STATES THE WORST AREA IS IN THE RIGHT ANKLE.. CURRENT MEDICATIONS TAKING VITAMIN D3 5000 UNIT TABLET 1 TABLET ORALLY ONCE A DAY, NOTES: 02-05-17 PM TAKING KEPPRA 500 MG TABLET 1 TAB ORALLY EVERY 12 HRS, NOTES: 02-06-17899 TAKING BUSPAR 10 MG TABLET 1 TABLET ORALLY TWICE A DAY, NOTES: 02-06-17899 TAKING ADDERALL 15 MG TABLET 1 TABLET IN THE MORNING ORALLY ONCE A DAY, NOTES: 02-06-17899 TAKING EFFEXOR 75 MG TABLET 1 TABLET WITH FOOD ORALLY TWO IN MORNING, 1 AT NIGHT, NOTES: 02-06-17899 TAKING SYNTHROID 125 MCG TABLET 1 TABLET ORALLY ONCE A DAY, NOTES: 02-06-17899 TAKING PROPRANOLOL HCL 10 MG TABLET 1 TABLET ORALLY BEFORE BEDTIME, NOTES: 02-05-17 PM TAKING L-METHYLFOLATE FORTE 15-90.314 MG CAPSULE 1 CAPSULE ORALLY ONCE A DAY, NOTES: 02-06-17899 TAKING MAXALT-ORDER CONTROL CLERK BLOOD BANK 10 MG TABLET DISPERSIBLE 1 TABLET ON THE TONGUE AND ALLOW TO DISSOLVE NEEDED ONE TIME ORALLY ONCE A DAY, NOTES: NONE TAKING EXCEDRIN MIGRAINE 250-250-65 MG TABLET 2 TABLETS NEEDED ORALLY EVERY 6 HRS, NOTES: NONE TAKING VENTOLIN HFA 108 (90 BASE) MCG/ACT AEROSOL SOLUTION 2 PUFFS NEEDED INHALATION EVERY 4 HRS, NOTES: NONE LATELY TAKING PRAZOSIN HCL 5 MG CAPSULE 1 CAPSULE AT BEDTIME ORALLY ONCE A DAY, NOTES: 02-05-17899 TAKING REXULTI 0.5 MG TABLET 1 TABLET ORALLY ONCE A DAY TAKING MYRBETRIQ 50 MG TABLET 1 TABLET ORALLY ONCE A DAY NOT-TAKING AMETHIA 0.15-0.03 &0.01 MG TABLET 1 TABLET ORALLY ONCE A DAY, NOTES: 3-8-17 PM PAST MEDICAL HISTORY RECURRENT FEVER MIGRAINES HYPOTHYROIDISM ABSENT SEIZURES ANXIETY DEPRESSION CHRONIC NECK AND LOW BACK PAIN EXERCISE-INDUCED INHALER KIDNEY STONES STRESS INCONTINENCE ALLERGIES SULFA (FOR ALLERGY USE ONLY): RASH: ALLERGY LAMICTAL: RASH: ALLERGY VICODIN: VOMITING: SIDE EFFECTS SOCIAL HISTORY GENERAL: PAIN CLINIC PFS, CLERGY, PUBLIC HEALTH REFERRALS CLERGY REFERRAL NEEDED?NO WAS THE PROVIDER NOTIFIED OF ANY PERTINENT INFO?NO PFS REFERRAL NEEDED?NO PUBLIC HEALTH REFERRAL NEEDED?NO PATIENT: ____. REVIEW OF SYSTEMS CONSTITUTIONAL: ANY CHANGE IN YOUR MEDICAL CONDITION? NO . CHILLS NO . FEVER NO . INFECTION: DO YOU HAVE NEW INFECTIONS? NO . DO YOU HAVE HISTORY OF MRSA? NO . MUSCULOSKELETAL: ANY NEW PATTERNS OF PAIN OR NUMBNESS? NO . GASTROENTEROLOGY: ANY NEW CHANGE IN BOWEL CONTROL? NO . GENITOURINARY: ANY NEW CHANGE IN BLADDER CONTROL? NO . IS THERE A CHANCE YOU COULD BE ? NO . HEMATOLOGY/LYMPH: DO YOU TAKE ANY BLOOD THINNERS? (FOR EXAMPLE- COUMADIN, PLAVIX, AGGRENOX, PLATEL, PRADAXA, OR XARELTO) NO . WHEN WAS YOUR LAST DOSE? DATE: TIME: . NEUROLOGY: HAVE YOU FALLEN IN THE PAST 6 MONTHS? YES KAPIL IS WHY SHE IS HERE TOAY . ANY NEW EXTREMITY NUMBNESS OR WEAKNESS? NO . CARDIOLOGY: DO YOU HAVE A PACEMAKER OR DEFIBRILLATOR? NO . RESPIRATORY: HAVE YOU BEEN SICK IN THE PAST WEEK? NO . FEVER NO . FLU LIKE SYMPTOMS? NO . COUGH NO . INTEGUMENTARY: DO YOU HAVE ANY RASHES OR OPEN SORES? NO . ALLERGIC/IMMUNO: ARE YOU ALLERGIC TO SHELLFISH OR IV DYE? NO . ANY NEW ALLERGIES? NO . PSYCHIATRIC: DO YOU HAVE THOUGHTS OF HURTING YOURSELF OR SOMEONE ELSE? NO . ARE YOU ABUSED, NEGLECTED, OR IN AN UNSAFE ENVIRONMENT? NO . ENDOCRINOLOGY: ARE YOU DIABETIC? NO . OTHER: DO YOU NEED ANY PRESCRIPTIONS? NO . IF YES, PLEASE LIST: ____ . ANY NEW PROBLEMS WITH YOUR MEDICATIONS? NO . WHEN DID YOU LAST EAT? ____ . WHEN DID YOU LAST DRINK? ____ . WHAT DID YOU LAST DRINK? ____ . NAME OF PERSON DRIVING YOU HOME? ____ . DO YOU HAVE ANY OTHER QUESTIONS OR CONCERNS NO . REVIEWED BY: PROVIDER: YESENIA GONZALEZ . VITAL SIGNS WT 242.8 LBS, HT 63", BMI 43.01 INDEX, BP 130/69 MM HG, HR 97 /MIN, RR 18 /MIN, TEMP 97.8 F, OXYGEN SAT % 99%, NA INITIALS AW 1032. EXAMINATION GENERAL EXAMINATION: PSYCHALERT , ORIENTED X 3 , APPROPRIATE MOOD AND AFFECT . LUNGS:CLEAR TO AUSCULTATION BILATERALLY. HEART:HEART RATE REGULAR. MUSCULOSKELETAL:MILD TENDERNESS WITH PALPATION ACROSS THE LUMBOSACRAL AXIS. FEW TRIGGERPOINTS ARE IDENTIFIES ACROSS THE SACRUM. RISES EASILY TO STANDING POSITION. POSTURE UPRIGHT, GAIT NONANTALGIC. JOINTS:RIGHT , ANKLE , PAIN , SWELLING , AT REST , WITH RANGE OF MOTION . AREA IS ECCYMOTIC. GAINT ANTALGIC WITH LIMP. ASSESSMENTS ACUTE RIGHT ANKLE PAIN - M25.571 (PRIMARY) SACROILIITIS, NOT ELSEWHERE CLASSIFIED - M46.1 (PRIMARY) LUMBAR FACET ARTHROPATHY - M12.88 (PRIMARY) MYALGIA - M79.1 LOW BACK PAIN - M54.5 TREATMENT ACUTE RIGHT ANKLE PAIN START IBUPROFEN TABLET, 800 MG, 1 TABLET WITH FOOD OR MILK, ORALLY, THREE TIMES A DAY, 30 DAY(S), 90, REFILLS 1 NOTES: ICE TO RIGHT ANKLE NEEDED. [facility] RE[facility]ON:FALL 03/16/17 WITH NEW SPRAIN OF RIGHT ANKLE. HAS HAD PREVIOUS INJURY TO SAME ANKLE X 2 PROCEDURE CODES FA211 ESTABILISHED PATIENT [facility] CHARGE DISPOSITION & COMMUNICATION FOLLOW UP KEEP SCHEDULED APPOINTMENT ELECTRONICALLY SIGNED BY ANGEL BARKER ON 03/31/2017 AT 10:08 AM EDT DISCLAIMER : THIS IS A VISIT SUMMARY EXTRACTED FROM THE [employer] CHART. IT IS NOT A COPY OF THE [employer] PROGRESS NOTE. CRYSTAL
== END ==
LOC: M PAIN 10:20
PROVIDERS: ATTEND Nurse Practitioner Family
DX: G89.29 Other chronic pain (principal); M25.571 Pain in right ankle and joints of right foot; M46.1 Sacroiliitis, not elsewhere classified; M12.88 Other specific arthropathies, not elsewhere classified, other specified site; M79.1 Myalgia; M54.5 Low back pain; E03.9 Hypothyroidism, unspecified; F32.9 Major depressive disorder, single episode, unspecified; F41.9 Anxiety disorder, unspecified; Z88.2 Allergy status to sulfonamides; Z88.5 Allergy status to narcotic agent; Z88.8 Allergy status to other drugs, medicaments and biological substances; Z79.899 Other long term (current) drug therapy

== ENCOUNTER → 2017-04-03 | Outpatient (CLI) | payer BC ==
--- NOTE | 2017-04-03 14:21 | REP ---
MRI RIGHT ANKLE: TECHNIQUE: Sagittal proton density, STIR, axial proton density fat sat, T1, coronal proton density, STIR. The Achilles, anterior tibial, posterior tibial, flexor hallucis longus, flexor digitorum longus and peroneal tendons appear intact. I do not see significant tenosynovitis. Anterior and posterior talofibular, calcaneofibular and deltoid ligaments appear intact. Tibiofibular ligaments appear intact. Plantar tendon demonstrates no tear. There is no evidence of plantar fasciitis. There is a small joint effusion. There is mild diffuse subcutaneous edema both medially and laterally. No ganglion cyst or other soft tissue abnormality is seen. There is no occult fracture. Bone marrow signal is homogenous and unremarkable. Tibiotalar joint is unremarkable. No osteochrondral defects are seen. IMPRESSION: No evidence of tendon or ligament tear. No occult fracture. Small joint effusion with mild diffuse subcutaneous soft tissue edema. Signed by Juan Carlos Salcedo MD 04/04/2017 05:13 P
== END ==
LOC: M RAD 07:17
PROVIDERS: ATTEND Orthopaedic Surgery
DX: S90.01XA Contusion of right ankle, initial encounter (principal)

== ENCOUNTER → 2017-06-18 | Outpatient (CLI) | payer BC ==
[~2017-06-18] MED LIST changes: +ALBU17IN INH; +ALPR0.5T3 PO; +AMET1TAB4 PO; +AMPH1TAB2 PO; -BUPIVACAINE HCL 0.25% 30 ML VIAL As Ordered ONE; +BUSP10TA PO; +HYDR200T3 PO; +IBUP80TA PO; -ISOVUE-M 300 61% 15ML VIAL (Q9967) As Ordered ONE; +KEPP500T13 PO; -LIDOCAINE 1% SDV INJ 30 ML VIAL As Ordered ONE; +MECAP PO; +MYRB25TA PO; -ONDANSETRON 4MG/2ML VIAL (J2405) As Ordered ONE; +PANT20TA PO; +PRAZ5CAP PO; +PRED10TA2 PO; +PROP10TA56 PO; +PROT1TAB2 PO; +REXU1TAB2 PO; +SUMA50TA2 PO; +SYNT125T PO; -TRIAMCINOLONE ACETONIDE SUSP 40 MG/ML VIAL (J3301) As Ordered ONE; +VENL75TA2 PO; -diazePAM 5 MG TAB As Ordered ONE; -oxyCODONE 5MG TAB As Ordered ONE
--- NOTE | 2017-06-18 10:29 | REP ---
PA and lateral chest: Comparison studies are the PA and lateral chest dated 05/15/[address] of 06/24/2016. There is thoracic scoliosis convex right in the mid thoracic spine left at the thoracolumbar junction. This is unchanged. The lung sanchez otherwise clear and unchanged. Upon review of the chest CT there are bilateral epicardial fat pads. There results in the artifactual appearance of increased cardiac size on the plain film study, however there is no change from the comparison plain film study. The imelda, mediastinum, and bony thorax are unremarkable. Impression: Mild thoracic scoliosis. Otherwise, negative PA and lateral chest. There are bilateral epicardial fat pads, unchanged. Signed by Juan Carlos Montana MD 06/18/2017 10:21 A
== END ==
LOC: M RAD 09:35 → M LAB 09:35
PROVIDERS: ATTEND Allergy & Immunology Allergy
DX: R05 Cough (principal); K21.9 Gastro-esophageal reflux disease without esophagitis; J30.1 Allergic rhinitis due to pollen; M41.9 Scoliosis, unspecified

== ENCOUNTER 2017-06-19 09:57 | Emergency (ER) | payer BC ==
[~2017-06-19] VITALS: Ht 160 cm; Wt 123.0 kg
[2017-06-19 09:57] VITALS: BP 105/75
[2017-06-19] MEDS ORDERED: PRED10TA2 PO (10:36)
[2017-06-19] MEDS ORDERED: PROT1TAB2 PO (10:36)
[2017-06-19] MEDS ORDERED: predniSONE 20 MG TAB PO ONE (10:45)
[2017-06-19] MEDS ORDERED: PANTOPRAZOLE 40MG TAB (PROTONIX) PO ONE (10:45)
[2017-08-14] MEDS ORDERED: SYNT125T PO (14:16)
[2017-08-14] MEDS ORDERED: AMPH1TAB2 PO (14:16)
[2017-08-14] MEDS ORDERED: MYRB25TA PO (14:16)
[2017-08-14] MEDS ORDERED: BUSP10TA PO (14:16)
[2017-08-14] MEDS ORDERED: MECAP PO (14:16)
[2017-08-14] MEDS ORDERED: REXU1TAB2 PO (14:16)
[2017-08-14] MEDS ORDERED: SUMA50TA2 PO (14:16)
[2017-08-14] MEDS ORDERED: IBUP80TA PO (14:16)
[2017-08-14] MEDS ORDERED: AMET1TAB4 PO (14:16)
[2017-08-14] MEDS ORDERED: PANT20TA PO (14:16)
[2017-08-14] MEDS ORDERED: KEPP500T13 PO (14:16)
[2017-08-14] MEDS ORDERED: PROP10TA56 PO (14:16)
[2017-08-14] MEDS ORDERED: ALPR0.5T3 PO (14:16)
[2017-08-14] MEDS ORDERED: HYDR200T3 PO (14:16)
[2017-08-14] MEDS ORDERED: PRAZ5CAP PO (14:16)
[2017-08-14] MEDS ORDERED: ALBU17IN INH (14:16)
[2017-08-14] MEDS ORDERED: VENL75TA2 PO (14:16)
== END 2017-06-19 10:50 | disposition home or self-care (01) ==
LOC: M ED 09:57
DX: K21.9 Gastro-esophageal reflux disease without esophagitis (principal); J45.990 Exercise induced bronchospasm; R05 Cough; M32.9 Systemic lupus erythematosus, unspecified; E07.9 Disorder of thyroid, unspecified; R56.9 Unspecified convulsions; R51 Headache; F32.9 Major depressive disorder, single episode, unspecified; Z82.49 Family history of ischemic heart disease and other diseases of the circulatory system; J30.89 Other allergic rhinitis; Z88.2 Allergy status to sulfonamides; Z88.8 Allergy status to other drugs, medicaments and biological substances

== ENCOUNTER → 2017-07-02 | Outpatient (CLI) | payer BC ==
[2017-07-02 13:29] LABS: BASO % 0.3 % (0.0-1.0); EOS # 0.1 K/mm3 (0.0-0.50); EOS % 0.6 % (0.0-3.0); LARGE UNSTAINED CELL # 0.1 K/mm3 (0.0-0.4); LARGE UNSTAINED CELL % 0.9 % (0.0-4.0); LYMPH # 1.9 K/mm3 (1.5-4.5); LYMPH % 15.5 % (24.0-44.0); MEAN CORPUSCULAR HGB CONC 33.3 g/dl (32.0-36.5); MONO # 0.5 K/mm3 (0.0-0.8); MONO % 4.4 % (0.0-5.0); NEUTROPHILS # 9.2 K/mm3 (1.8-7.7); NEUTROPHILS % 78.2 % (36.0-66.0); PLATELET COUNT, AUTOMATED 353 k/mm3 (150-450); RED CELL DISTRIBUTION WIDTH 12.6 % (11.5-14.5); WHITE BLOOD COUNT 11.8 K/mm3 (4.0-10.0)
[2017-07-02 14:20] LABS: FREE T4 1.37 NG/DL (0.76-1.46)
== END ==
LOC: M SMT 09:57
PROVIDERS: ATTEND Family Medicine
DX: E03.9 Hypothyroidism, unspecified (principal); M32.9 Systemic lupus erythematosus, unspecified

== ENCOUNTER → 2017-08-07 | Outpatient (CLI) | payer BC ==
[~2017-08-07] MED LIST changes: +GASTROGRAFIN SOLUTION 30ML (Q9963) As Ordered ONE; +ISOVUE-370 76% 100ML VIAL (Q9967) As Ordered ONE
--- NOTE | 2017-08-07 16:01 | REP ---
Clinical: Epigastric pain. Technique: Axial contrast enhanced images from the lung bases to the pubic symphysis using oral and 100 ml Isovue 370 intravenous contrast material with precontrast images of the abdomen and coronal/sagittal re-formations. Comparison: 06/24/2016. Findings: Lung bases are clear. Visualized heart and pericardium are normal. Liver, spleen, pancreas, gallbladder, bilateral adrenal glands and kidneys are normal. The enteric system is without obstruction or acute inflammatory process. The pelvis demonstrates normal bladder and age-appropriate uterus/adnexa. No free fluid. No free air. No adenopathy. Vasculature is normal. Musculoskeletal structures are intact. Impression: Normal contrast enhanced CT of the abdomen and pelvis. Signed by Ricardo Muller MD 08/07/2017 03:52 P
== END ==
LOC: M RAD 14:07
PROVIDERS: ATTEND Surgery
DX: R10.9 Unspecified abdominal pain (principal)
CPT/HCPCS: 74178; Q9963; Q9967

== ENCOUNTER → 2017-08-20 | Outpatient (CLI) | payer BC ==
[~2017-08-20] MED LIST changes: -GASTROGRAFIN SOLUTION 30ML (Q9963) As Ordered ONE; -ISOVUE-370 76% 100ML VIAL (Q9967) As Ordered ONE
--- NOTE | 2017-08-25 00:07 | ECWPNPC ---
PATIENT NAME: EILEEN MARCUS : 1980 GENDER: FEMALE VISIT DATE: 08/20/2017 DISCHARGE DATE: 08/20/17929 VISIT LOCKED DATE TIME: PHYSICIAN: YESENIA GARCIA RESOURCE: YESENIA GARCIA REASON FOR APPOINTMENT 1. BACK AND NECK HISTORY OF PRESENT ILLNESS HISTORY OF PRESENT ILLNESS: PAIN THE PATIENT DESCRIBES THE PAIN... FALL RISK SCREENING: SCREENING :NO FALLS IN THE PAST YEAR TODAY'S VISIT: NOTES: RATES PAIN TODAY /10. DESCRIBES PAIN CONSTANT, TENDER, SORE AND IS EXPERIENCING MUSCLE SPASMS. NOTES PAIN IS CENTERED AT BASE OF NECK AND CENTERED OVER THE LOW BACK. NOTES PAIN IS NOT RADIATING TO LEGS, AND DOES DISRUPT SLEEP. DID SEE ORTHOPEDICS FOR RIGHT ANKLE SPRAIN-VWAS IN A BOOT. STATES BACK IS NOT GOOD. STARTED ON PLAQUENIL 05/16 - NOT MUCH IMPROVEMENT NOTED. CURRENT MEDICATIONS TAKING VITAMIN D3 5000 UNIT TABLET 1 TABLET ORALLY ONCE A DAY TAKING KEPPRA 500 MG TABLET 1 TAB ORALLY EVERY 12 HRS TAKING BUSPAR 10 MG TABLET 1 TABLET ORALLY TWICE A DAY TAKING ADDERALL 15 MG TABLET 1 TABLET IN THE MORNING ORALLY ONCE A DAY TAKING EFFEXOR 75 MG TABLET 1 TABLET WITH FOOD ORALLY TWO IN MORNING, 1 AT NIGHT TAKING SYNTHROID 125 MCG TABLET 1 TABLET ORALLY ONCE A DAY TAKING PROPRANOLOL HCL 10 MG TABLET 1 TABLET ORALLY BEFORE BEDTIME TAKING L-METHYLFOLATE FORTE 15-90.314 MG CAPSULE 1 CAPSULE ORALLY ONCE A DAY TAKING EXCEDRIN MIGRAINE 250-250-65 MG TABLET 2 TABLETS NEEDED ORALLY EVERY 6 HRS TAKING VENTOLIN HFA 108 (90 BASE) MCG/ACT AEROSOL SOLUTION 2 PUFFS NEEDED INHALATION EVERY 4 HRS TAKING PRAZOSIN HCL 5 MG CAPSULE 1 CAPSULE AT BEDTIME ORALLY ONCE A DAY TAKING REXULTI 0.5 MG TABLET 1 TABLET ORALLY ONCE A DAY TAKING MYRBETRIQ 50 MG TABLET 1 TABLET ORALLY ONCE A DAY TAKING IBUPROFEN 800 MG TABLET 1 TABLET WITH FOOD OR MILK ORALLY THREE TIMES A DAY TAKING IMITREX 50 MG TABLET 1 TABLET NEEDED ORALLY TWICE A DAY TAKING PLAQUENIL 200 MG TABLET 1 TABLET WITH FOOD OR MILK ORALLY BID NOT-TAKING MAXALT-MANAGER STATE 10 MG TABLET DISPERSIBLE 1 TABLET ON THE TONGUE AND ALLOW TO DISSOLVE NEEDED ONE TIME ORALLY ONCE A DAY NOT-TAKING AMETHIA 0.15-0.03 &0.01 MG TABLET 1 TABLET ORALLY ONCE A DAY, NOTES: 38-17 PM MEDICATION LIST REVIEWED AND RECONCILED WITH THE PATIENT PAST MEDICAL HISTORY RECURRENT FEVER MIGRAINES HYPOTHYROIDISM ABSENT SEIZURES ANXIETY DEPRESSION CHRONIC NECK AND LOW BACK PAIN EXERCISE-INDUCED INHALER KIDNEY STONES STRESS INCONTINENCE ALLERGIES SULFA (FOR ALLERGY USE ONLY): RASH: ALLERGY LAMICTAL: RASH: ALLERGY VICODIN: VOMITING: SIDE EFFECTS SURGICAL HISTORY TONSILLECTOMY ABOUT 1984 ADENOIDS REMOVED ABOUT 1984 ROSHNI PLANTAR FASCITIS RELEASE 2012 OR 2013 HOSPITALIZATION/MAJOR DIAGNOSTIC PROCEDURE RELATED TO SURGERY CHILDBIRTH 2006 REVIEW OF SYSTEMS REVIEWED BY: PROVIDER: YESENIA CLAYTONP . CONSTITUTIONAL: ANY CHANGE IN YOUR MEDICAL CONDITION? NO . CHILLS NO . FEVER NO . INFECTION: DO YOU HAVE NEW INFECTIONS? NO . DO YOU HAVE HISTORY OF MRSA? NO . MUSCULOSKELETAL: ANY NEW PATTERNS OF PAIN OR NUMBNESS? NO . GASTROENTEROLOGY: ANY NEW CHANGE IN BOWEL CONTROL? NO . GENITOURINARY: ANY NEW CHANGE IN BLADDER CONTROL? NO . IS THERE A CHANCE YOU COULD BE ? NO . HEMATOLOGY/LYMPH: DO YOU TAKE ANY BLOOD THINNERS? (FOR EXAMPLE- COUMADIN, PLAVIX, AGGRENOX, PLATEL, PRADAXA, OR XARELTO) NO . WHEN WAS YOUR LAST DOSE? DATE: TIME: . NEUROLOGY: HAVE YOU FALLEN IN THE PAST 6 MONTHS? NO . ANY NEW EXTREMITY NUMBNESS OR WEAKNESS? NO . CARDIOLOGY: DO YOU HAVE A PACEMAKER OR DEFIBRILLATOR? NO . RESPIRATORY: HAVE YOU BEEN SICK IN THE PAST WEEK? NO . FEVER NO . FLU LIKE SYMPTOMS? NO . COUGH NO . INTEGUMENTARY: DO YOU HAVE ANY RASHES OR OPEN SORES? NO . ALLERGIC/IMMUNO: ARE YOU ALLERGIC TO SHELLFISH OR IV DYE? NO . ANY NEW ALLERGIES? NO . PSYCHIATRIC: DO YOU HAVE THOUGHTS OF HURTING YOURSELF OR SOMEONE ELSE? NO . ARE YOU ABUSED, NEGLECTED, OR IN AN UNSAFE ENVIRONMENT? NO . ENDOCRINOLOGY: ARE YOU DIABETIC? NO . OTHER: DO YOU NEED ANY PRESCRIPTIONS? NO . IF YES, PLEASE LIST: ____ . ANY NEW PROBLEMS WITH YOUR MEDICATIONS? NO . WHEN DID YOU LAST EAT? ____ . WHEN DID YOU LAST DRINK? ____ . WHAT DID YOU LAST DRINK? ____ . NAME OF PERSON DRIVING YOU HOME? ____ . DO YOU HAVE ANY OTHER QUESTIONS OR CONCERNS NO . VITAL SIGNS WT 235 LBS, HT 63", BMI 41.62 INDEX, BP 110/76 MM HG, HR 88 /MIN, RR 18 /MIN, TEMP 97.3 F, OXYGEN SAT % 96%, NA INITIALS AW 0901, REVIEWED BY: NL. EXAMINATION GENERAL EXAMINATION: PSYCHALERT , ORIENTED X 3 , APPROPRIATE MOOD AND AFFECT . LUNGS:CLEAR TO AUSCULTATION BILATERALLY. HEART:HEART RATE REGULAR. MUSCULOSKELETAL:MUSCLE STRENGTH TESTING 5/5 BILATERAL LOWER EXTREMITIES. , SLOW TO RISE TO STANDING POSITION. POINT TENDERNESS OVER LUMBOSACRAL AXIS. NO SPECIFIC SIJ TENDERNESS. GAIT NONANTALGIC. ASSESSMENTS SACROILIITIS, NOT ELSEWHERE CLASSIFIED - M46.1 (PRIMARY) LUMBAR FACET ARTHROPATHY - M12.88 (PRIMARY) MYALGIA - M79.1 TREATMENT SACROILIITIS, NOT ELSEWHERE CLASSIFIED START DICLOFENAC SODIUM GEL, 1 %, DIRECTED, TRANSDERMAL, 4 GM TO LOW BACK Q 6 HRS FOR PAIN, 30 DAY(S), 3 TUBE, REFILLS 1 NOTES: CONSIDER INTERVENTIONAL TREATMENT IN FUTURE. NO IBUPROFEN .WALK DAILY. PROCEDURE CODES FA211 ESTABILISHED PATIENT [facility] CHARGE DISPOSITION & COMMUNICATION FOLLOW UP 4-6 WEEKS (REASON: LOW BACK) ELECTRONICALLY SIGNED BY ANGEL BARKER ON 08/21/2017 AT 09:25 AM EDT DISCLAIMER : THIS IS A VISIT SUMMARY EXTRACTED FROM THE [employer] CHART. IT IS NOT A COPY OF THE [employer] PROGRESS NOTE. CRYSTAL
== END ==
LOC: M PAIN 08:40
PROVIDERS: ATTEND Nurse Practitioner Family
DX: G89.29 Other chronic pain (principal); M46.1 Sacroiliitis, not elsewhere classified; M12.88 Other specific arthropathies, not elsewhere classified, other specified site; M79.1 Myalgia; G43.909 Migraine, unspecified, not intractable, without status migrainosus; E03.9 Hypothyroidism, unspecified; G40.A09 Absence epileptic syndrome, not intractable, without status epilepticus; F41.9 Anxiety disorder, unspecified; E32.9 Disease of thymus, unspecified; Z88.2 Allergy status to sulfonamides; Z88.5 Allergy status to narcotic agent; Z88.8 Allergy status to other drugs, medicaments and biological substances; Z79.1 Long term (current) use of non-steroidal anti-inflammatories (NSAID); Z79.899 Other long term (current) drug therapy

== ENCOUNTER 2017-08-21 09:17 | Outpatient (CLI) | payer BC ==
[~2017-08-21] VITALS: Ht 160 cm; Wt 106.6 kg
[2017-08-21] MEDS ORDERED: NS 1,000 ML IV SCH (09:30)
[2017-08-21] MEDS ORDERED: fentaNYL 100 MCG/2 ML INJECTION (J3010) As Ordered ONE (10:23)
--- NOTE | 2017-08-21 10:53 | ROOR ---
Patient Name: Tiarra Oliver Procedure Date: 08/21/2017 10:21 AM Date of : 1980 Age: 36 Room: [facility] Gender: Female Note Status: Finalized Procedure: Upper GI endoscopy Indications: Suspected esophageal reflux Providers: Alek Rg Jr, MD Referring MD: Madelin GRAHAM DO Requesting Provider: Medicines: Propofol per Anesthesia Complications: No immediate complications. Procedure: Pre-Anesthesia Assessment: - Prior to the procedure, a History and Physical was performed, and patient medications and allergies were reviewed. The patient is competent. The risks and benefits of the procedure and the sedation options and risks were discussed with the patient. All questions were answered and informed consent was obtained. Patient identification and proposed procedure were verified by the physician and the nurse in the pre-procedure area and in the procedure room. Mental Status Examination: alert and oriented. Airway Examination: normal oropharyngeal airway and neck mobility. Respiratory Examination: clear to auscultation. CV Examination: normal. ASA Grade Assessment: II - A patient with mild systemic disease. After reviewing the risks and benefits, the patient was deemed in satisfactory condition to undergo the procedure. The anesthesia plan was to use moderate sedation / analgesia (conscious sedation). Immediately prior to administration of medications, the patient was re-assessed for adequacy to receive sedatives. The heart rate, respiratory rate, oxygen saturations, blood pressure, adequacy of pulmonary ventilation, and response to care were monitored throughout the procedure. The physical status of the patient was re-assessed after the procedure. The Endoscope was introduced through the mouth, and advanced to the second part of duodenum. The upper GI endoscopy was accomplished without difficulty. The patient tolerated the procedure well. Findings: The upper third of the esophagus, middle third of the esophagus and lower third of the esophagus were normal. The cardia, gastric fundus, gastric body and gastric antrum were normal. Localized mildly erythematous mucosa without bleeding was found in the prepyloric region of the stomach. Biopsies were taken with a cold forceps for histology. The duodenal bulb, first portion of the duodenum and second portion of the duodenum were normal. Impression: - Normal upper third of esophagus, middle third of esophagus and lower third of esophagus. - Normal cardia, gastric fundus, gastric body and antrum. - Erythematous mucosa in the prepyloric region of the stomach. Biopsied. - Normal duodenal bulb, first portion of the duodenum and second portion of the duodenum. Recommendation: - Discharge patient to home (ambulatory). - Return to my office in 1 month. Alek Rg MD Alek Rg Jr, MD 08/21/2017 10:53:25 AM This report has been signed electronically. Number of Addenda: 0 Note Initiated On: 08/21/2017 10:21 AM Estimated Blood Loss: Estimated blood loss: none.
[2017-08-21 10:55] VITALS: BP 117/74
== END 2017-08-21 11:08 | disposition home or self-care (01) ==
LOC: M OPP 09:17
PROVIDERS: ATTEND Surgery
DX: K21.9 Gastro-esophageal reflux disease without esophagitis (principal); R10.13 Epigastric pain; K31.89 Other diseases of stomach and duodenum; E03.9 Hypothyroidism, unspecified; M19.90 Unspecified osteoarthritis, unspecified site; M54.9 Dorsalgia, unspecified; M32.9 Systemic lupus erythematosus, unspecified; F32.9 Major depressive disorder, single episode, unspecified; F41.9 Anxiety disorder, unspecified; G43.909 Migraine, unspecified, not intractable, without status migrainosus; R56.9 Unspecified convulsions; J45.909 Unspecified asthma, uncomplicated; R06.02 Shortness of breath; Z87.442 Personal history of urinary calculi; Z88.8 Allergy status to other drugs, medicaments and biological substances; Z88.2 Allergy status to sulfonamides; Z79.899 Other long term (current) drug therapy; Z80.7 Family history of other malignant neoplasms of lymphoid, hematopoietic and related tissues; Z80.42 Family history of malignant neoplasm of prostate
CPT/HCPCS: 43239; 88305; J3010

== ENCOUNTER → 2017-09-03 | Outpatient (CLI) | payer BC | LOC: M LAB 16:08 | PROVIDERS: ATTEND Physician Assistant Medical | DX: R42 Dizziness and giddiness (principal) ==

== ENCOUNTER → 2017-11-13 | Outpatient (CLI) | payer BC ==
[~2017-11-13] MED LIST changes: +METHACHOLINE KIT (J7674) INH ONE
--- NOTE | 2017-11-13 08:45 | PFTRPT ---
Site: [facility], [address] [place], [address] ID: [id number] Name: EILEEN MARCUS Doctor: Olivier Medellin Tech: eSlvin ROD RRT Age: 36 Sex: Female Race: Height: 63.00 Inches Weight: 235.00 Lbs BSA: 2.07 Diagnosis: R05 puffs of albuterol for post bronchodilator. Pre-Bronch Post-Bronch Pred Actual %Pred Actual %Chng SPIROMETRY FVC (L) 3.60 3.70 102 3.67 FEV1 (L) 2.96 3.04 102 2.92 -4 FEV1/FVC (%) 83 82 99 79 -3 FEF 25% (L/sec) 5.40 6.71 124 5.32 -20 FEF 50% (L/sec) 4.27 4.56 106 4.20 -7 FEF 75% (L/sec) 1.72 1.24 72 0.99 -20 FEF 25-75% (L/sec) 3.14 3.29 104 2.81 -14 FEF Max (L/sec) 6.84 6.74 98 5.35 -20 FIVC (L) 3.28 3.34 1 FIF 50% (L/sec) 4.24 4.14 97 4.57 10 FIF Max (L/sec) 4.25 4.78 12
== END ==
LOC: M CARPUL 07:41
PROVIDERS: ATTEND Nurse Practitioner Family
DX: J45.31 Mild persistent asthma with (acute) exacerbation (principal); R05 Cough
CPT/HCPCS: 94070; J7674

== ENCOUNTER 2017-11-26 20:51 | Emergency (ER) | payer BC ==
[2017-11-26 23:09] LABS: KETONE, URINE AUTO RFX NEGATIVE (NEGATIVE); MUCUS, URINE RFX SMALL (NEGATIVE); NITRITE, URINE AUTO RFX NEGATIVE (NEGATIVE); RBC, URINE AUTO RFX 2 /HPF (0-3); SPECIFIC GRAVITY UR AUTO RFX 1.009 (1.002-1.035); SQUAM EPITHELIAL CELL UR AURFX 1 /HPF (0-6); WBC, URINE AUTO RFX 1 /HPF (0-3)
[2017-11-26 23:10] LABS: LEUKOCYTE ESTERASE UR AUTO RFX 1+ (NEGATIVE)
== END 2017-11-27 00:08 | disposition home or self-care (01) ==
LOC: M ED 11-27 00:08
DX: G40.A09 Absence epileptic syndrome, not intractable, without status epilepticus (principal); J45.909 Unspecified asthma, uncomplicated; J30.89 Other allergic rhinitis; Z79.899 Other long term (current) drug therapy; Z88.2 Allergy status to sulfonamides; Z88.8 Allergy status to other drugs, medicaments and biological substances
CPT/HCPCS: 81001

== ENCOUNTER → 2017-12-05 | Outpatient (CLI) | payer BC ==
[2017-12-09 08:10] LABS: LEVETIRACETAM (KEPPRA) 20.4 ug/mL (10.0-40.0)
== END ==
LOC: M LAB 16:09
DX: R42 Dizziness and giddiness (principal)
CPT/HCPCS: 36415

== ENCOUNTER → 2018-01-02 | Outpatient (CLI) | payer BC ==
[2018-01-05 14:12] LABS: ANTINUCLEAR ANTIBODIES DIRECT Negative (Negative)
== END ==
LOC: M LAB 09:03
DX: R76.8 Other specified abnormal immunological findings in serum (principal)
CPT/HCPCS: 86038

== ENCOUNTER → 2018-01-02 | Outpatient (CLI) | payer BC ==
[2018-01-02 10:17] LABS: BASO % 0.6 % (0.0-1.0); EOS # 0.1 10^3/uL (0.0-0.50); EOS % 2.1 % (0.0-3.0); HEMATOCRIT 41.9 % (36.0-47.0); HEMOGLOBIN 14.2 g/dl (12.0-16.0); IMMATURE GRANULOCYTE % 0.2 % (0-0); LYMPH # 2.2 10^3/uL (1.5-4.5); LYMPH % 35.5 % (24.0-44.0); MEAN CORPUSCULAR HEMOGLOBIN 29.8 pg (27.0-33.0); MEAN CORPUSCULAR HGB CONC 33.9 g/dl (32.0-36.5); MONO # 0.4 10^3/uL (0.0-0.8); MONO % 6.7 % (0.0-5.0); NEUTROPHILS # 3.4 10^3/uL (1.8-7.7); NEUTROPHILS % 54.9 % (36.0-66.0); PLATELET COUNT, AUTOMATED 397 10^3/uL (150-450); RED BLOOD COUNT 4.76 10^6/uL (4.00-5.40); RED CELL DISTRIBUTION WIDTH 12.5 % (11.5-14.5); WHITE BLOOD COUNT 6.3 10^3/uL (4.0-10.0)
[2018-01-02 10:49] LABS: ALBUMIN 3.9 GM/DL (3.2-5.2); ALBUMIN/GLOBULIN RATIO 1.05 (1.00-1.93); ALKALINE PHOSPHATASE 74 U/L (45-117); ALT/SGPT 23 U/L (12-78); ANION GAP 9 MEQ/L (8-16); AST/SGOT 20 U/L (7-37); BILIRUBIN,TOTAL 0.5 MG/DL (0.2-1.0); BLOOD UREA NITROGEN 13 MG/DL (7-18); CALCIUM LEVEL 9.2 MG/DL (8.5-10.1); CARBON DIOXIDE LEVEL 22 MEQ/L (21-32); CHLORIDE LEVEL 108 MEQ/L (98-107); CHOLESTEROL LEVEL 221 MG/DL (<200); GLOMERULAR FILTRATION RATE > 60.0 (>60); GLUCOSE, FASTING 80 MG/DL (70-100); HDL CHOLESTEROL 52 MG/DL (>40); LDL CHOLESTEROL 144.4 MG/DL (<100); NON-HDL-C 169 MG/DL; POTASSIUM SERUM 4.2 MEQ/L (3.5-5.1); SODIUM LEVEL 139 MEQ/L (136-145); THYROID STIMULATING HORMONE 0.981 uIU/ML (0.358-3.740); TOTAL PROTEIN 7.6 GM/DL (6.4-8.2); TRIGLYCERIDES LEVEL 123 MG/DL (<150)
== END ==
LOC: M LAB 09:01
DX: E03.9 Hypothyroidism, unspecified (principal); M32.9 Systemic lupus erythematosus, unspecified
CPT/HCPCS: 84443

== ENCOUNTER → 2018-01-03 | Outpatient (REF) | payer BC ==
[2018-01-03 14:47] LABS: INFLUENZA A AMPLIFICATION POSITIVE (NEGATIVE); INFLUENZA B AMPLIFICATION NEGATIVE (NEGATIVE)
== END ==
LOC: M LAB 14:01
DX: N39.0 Urinary tract infection, site not specified (principal); J09.X2 Influenza due to identified novel influenza A virus with other respiratory manifestations
CPT/HCPCS: 87502

== ENCOUNTER → 2018-03-20 | Outpatient (REF) | payer BC | LOC: M LAB REF 13:16 | DX: R30.0 Dysuria (principal) | CPT/HCPCS: 87086 ==

== ENCOUNTER → 2018-05-11 | Outpatient (CLI) | payer BC ==
[2018-05-14 14:16] LABS: LEVETIRACETAM (KEPPRA) 21.7 ug/mL (10.0-40.0)
== END ==
LOC: M LAB 14:37
DX: R56.9 Unspecified convulsions (principal); E55.9 Vitamin D deficiency, unspecified
CPT/HCPCS: 82306

== ENCOUNTER 2018-05-21 18:25 | Emergency (ER) | payer OTHER, BC ==
[2018-05-21] MEDS: ADACEL/BOOSTRIX VACCINE (DIPHTH/PERTUSS/ACELL/TETANUS)0.5ML SYR (90715) IM ×2 (19:48)
== END 2018-05-21 19:59 | disposition home or self-care (01) ==
LOC: M ED 18:25
DX: S60.812A Abrasion of left wrist, initial encounter (principal); Y04.8XXA Assault by other bodily force, initial encounter; Y92.238 Other place in hospital as the place of occurrence of the external cause; Y93.89 Activity, other specified; Y99.0 Civilian activity done for income or pay; R56.9 Unspecified convulsions; J45.909 Unspecified asthma, uncomplicated; Z87.442 Personal history of urinary calculi; K21.9 Gastro-esophageal reflux disease without esophagitis; J30.89 Other allergic rhinitis; Z79.899 Other long term (current) drug therapy; Z88.8 Allergy status to other drugs, medicaments and biological substances; Z88.2 Allergy status to sulfonamides
CPT/HCPCS: 90715

== ENCOUNTER 2018-06-15 19:05 | Emergency (ER) | payer BC, OTHER ==
[2018-06-15 19:50] LABS: KETONE, URINE AUTO RFX TRACE mg/dL (NEGATIVE); LEUKOCYTE ESTERASE UR AUTO RFX 1+ (NEGATIVE); MUCUS, URINE RFX SMALL (NEGATIVE); NITRITE, URINE AUTO RFX NEGATIVE (NEGATIVE); RBC, URINE AUTO RFX 2 /HPF (0-3); SPECIFIC GRAVITY UR AUTO RFX 1.016 (1.002-1.035); SQUAM EPITHELIAL CELL UR AURFX 3 /HPF (0-6); WBC, URINE AUTO RFX 6 /HPF (0-3)
[2018-06-15 22:01] LABS: BASO # 0.1 10^3/uL (0.0-0.2); BASO % 0.9 % (0.0-1.0); EOS # 0.2 10^3/uL (0.0-0.50); EOS % 1.8 % (0.0-3.0); HEMATOCRIT 38.4 % (36.0-47.0); HEMOGLOBIN 12.8 g/dl (12.0-15.5); IMMATURE GRANULOCYTE % 0.2 % (0-3.0); LYMPH # 3.2 10^3/uL (1.5-4.5); LYMPH % 37.2 % (24.0-44.0); MEAN CORPUSCULAR HEMOGLOBIN 29.4 pg (27.0-33.0); MEAN CORPUSCULAR HGB CONC 33.3 g/dl (32.0-36.5); MEAN CORPUSCULAR VOLUME 88.1 fl (80.0-96.0); MONO # 0.7 10^3/uL (0.0-0.8); MONO % 8.2 % (0.0-5.0); NEUTROPHILS # 4.5 10^3/uL (1.8-7.7); NEUTROPHILS % 51.7 % (36.0-66.0); PLATELET COUNT, AUTOMATED 417 10^3/uL (150-450); RED BLOOD COUNT 4.36 10^6/uL (4.00-5.40); RED CELL DISTRIBUTION WIDTH 12.7 % (11.5-14.5); WHITE BLOOD COUNT 8.7 10^3/uL (4.0-10.0)
[2018-06-15 22:25] LABS: ALBUMIN 3.6 GM/DL (3.2-5.2); ALBUMIN/GLOBULIN RATIO 0.97 (1.00-1.93); ALKALINE PHOSPHATASE 67 U/L (45-117); ALT/SGPT 24 U/L (12-78); AMYLASE 40 U/L (25-115); ANION GAP 12 MEQ/L (8-16); AST/SGOT 19 U/L (7-37); BILIRUBIN,DIRECT < 0.1 MG/DL (0.0-0.2); BILIRUBIN,TOTAL 0.2 MG/DL (0.2-1.0); BLOOD UREA NITROGEN 9 MG/DL (7-18); CARBON DIOXIDE LEVEL 21 MEQ/L (21-32); CHLORIDE LEVEL 108 MEQ/L (98-107); CREATININE FOR GFR 0.91 MG/DL (0.55-1.30); GLOMERULAR FILTRATION RATE > 60.0 (>60); GLUCOSE, FASTING 80 MG/DL (70-100); LIPASE 171 U/L (73-393); POTASSIUM SERUM 3.4 MEQ/L (3.5-5.1); SODIUM LEVEL 141 MEQ/L (136-145); TOTAL PROTEIN 7.3 GM/DL (6.4-8.2)
[2018-06-15] MEDS ORDERED: ISOVUE-370 76% 100ML VIAL (Q9967) As Ordered (22:48)
[2018-06-15] MEDS: KETOROLAC 30 MG/ML VIAL (J1885) IV (22:49)
[2018-06-15] MEDS: NS 1,000 ML IV (22:49)
== END 2018-06-15 23:40 | disposition home or self-care (01) ==
LOC: M ED 19:05
DX: A08.4 Viral intestinal infection, unspecified (principal); J45.909 Unspecified asthma, uncomplicated; G43.909 Migraine, unspecified, not intractable, without status migrainosus; R56.9 Unspecified convulsions; E07.9 Disorder of thyroid, unspecified; F33.9 Major depressive disorder, recurrent, unspecified; Z87.19 Personal history of other diseases of the digestive system; Z87.442 Personal history of urinary calculi; Z79.899 Other long term (current) drug therapy; Z79.890 Hormone replacement therapy; Z88.2 Allergy status to sulfonamides
CPT/HCPCS: Q9967

== ENCOUNTER → 2018-07-02 | Outpatient (CLI) | payer BC ==
[2018-07-02 11:44] LABS: BASO # 0.1 10^3/uL (0.0-0.2); BASO % 0.8 % (0.0-1.0); EOS # 0.2 10^3/uL (0.0-0.50); EOS % 2.6 % (0.0-3.0); HEMATOCRIT 41.2 % (36.0-47.0); HEMOGLOBIN 13.6 g/dl (12.0-15.5); IMMATURE GRANULOCYTE % 0.2 % (0-3.0); LYMPH # 1.7 10^3/uL (1.5-4.5); LYMPH % 26.4 % (24.0-44.0); MEAN CORPUSCULAR HEMOGLOBIN 29.6 pg (27.0-33.0); MEAN CORPUSCULAR VOLUME 89.8 fl (80.0-96.0); MONO # 0.4 10^3/uL (0.0-0.8); MONO % 6.3 % (0.0-5.0); NEUTROPHILS # 4.1 10^3/uL (1.8-7.7); NEUTROPHILS % 63.7 % (36.0-66.0); PLATELET COUNT, AUTOMATED 386 10^3/uL (150-450); RED BLOOD COUNT 4.59 10^6/uL (4.00-5.40); RED CELL DISTRIBUTION WIDTH 12.7 % (11.5-14.5); WHITE BLOOD COUNT 6.5 10^3/uL (4.0-10.0)
[2018-07-02 11:47] LABS: POS COUNT POS FLAG
[2018-07-02 11:52] LABS: TOTAL 25(OH) VITAMIN D 48.5 NG/ML (30.0-100.0)
[2018-07-02 12:02] LABS: ALBUMIN 3.5 GM/DL (3.2-5.2); ALBUMIN/GLOBULIN RATIO 0.95 (1.00-1.93); ALKALINE PHOSPHATASE 78 U/L (45-117); ALT/SGPT 25 U/L (12-78); ANION GAP 11 MEQ/L (8-16); AST/SGOT 15 U/L (7-37); BILIRUBIN,TOTAL 0.3 MG/DL (0.2-1.0); BLOOD UREA NITROGEN 8 MG/DL (7-18); CALCIUM LEVEL 8.9 MG/DL (8.5-10.1); CARBON DIOXIDE LEVEL 21 MEQ/L (21-32); CHLORIDE LEVEL 109 MEQ/L (98-107); CHOLESTEROL LEVEL 234 MG/DL (<200); CHOLESTEROL RISK RATIO 5.318 (<5); CREATININE FOR GFR 0.84 MG/DL (0.55-1.30); FREE T4 1.27 NG/DL (0.76-1.46); GLOMERULAR FILTRATION RATE > 60.0 (>60); GLUCOSE, FASTING 77 MG/DL (70-100); HDL CHOLESTEROL 44 MG/DL (>40); LDL CHOLESTEROL 149.6 MG/DL (<100); NON-HDL-C 190 MG/DL; POTASSIUM SERUM 3.7 MEQ/L (3.5-5.1); SODIUM LEVEL 141 MEQ/L (136-145); THYROID STIMULATING HORMONE 0.564 uIU/ML (0.358-3.740); TOTAL PROTEIN 7.2 GM/DL (6.4-8.2); TRIGLYCERIDES LEVEL 202 MG/DL (<150)
== END ==
LOC: M LAB 10:44
DX: E55.9 Vitamin D deficiency, unspecified (principal)
CPT/HCPCS: 84443

== ENCOUNTER → 2018-09-18 | Outpatient (CLI) | payer BC | LOC: M CARPUL 07:57 | DX: R07.9 Chest pain, unspecified (principal) | CPT/HCPCS: 93306 ==

== ENCOUNTER 2018-10-23 15:13 | Emergency (ER) | payer BC ==
[2018-10-23 17:19] LABS: BASO # 0.1 10^3/uL (0.0-0.2); BASO % 0.4 % (0.0-1.0); EOS # 0.2 10^3/uL (0.0-0.50); EOS % 1.5 % (0.0-3.0); HEMATOCRIT 38.8 % (36.0-47.0); HEMOGLOBIN 12.9 g/dl (12.0-15.5); IMMATURE GRANULOCYTE % 0.9 % (0-3.0); LYMPH # 3.3 10^3/uL (1.5-4.5); LYMPH % 27.1 % (24.0-44.0); MEAN CORPUSCULAR HGB CONC 33.2 g/dl (32.0-36.5); MEAN CORPUSCULAR VOLUME 87.2 fl (80.0-96.0); MONO # 0.7 10^3/uL (0.0-0.8); NEUTROPHILS # 7.9 10^3/uL (1.8-7.7); NEUTROPHILS % 64.1 % (36.0-66.0); PLATELET COUNT, AUTOMATED 418 10^3/uL (150-450); RED BLOOD COUNT 4.45 10^6/uL (4.00-5.40); RED CELL DISTRIBUTION WIDTH 13.5 % (11.5-14.5); WHITE BLOOD COUNT 12.3 10^3/uL (4.0-10.0)
[2018-10-23 17:42] LABS: ANION GAP 9 MEQ/L (8-16); BLOOD UREA NITROGEN 10 MG/DL (7-18); CALCIUM LEVEL 9.2 MG/DL (8.5-10.1); CARBON DIOXIDE LEVEL 25 MEQ/L (21-32); CHLORIDE LEVEL 106 MEQ/L (98-107); CREATININE FOR GFR 0.85 MG/DL (0.55-1.30); FREE T4 1.11 NG/DL (0.76-1.46); GLOMERULAR FILTRATION RATE > 60.0 (>60); GLUCOSE, FASTING 93 MG/DL (70-100); POTASSIUM SERUM 3.6 MEQ/L (3.5-5.1); SODIUM LEVEL 140 MEQ/L (136-145)
[2018-10-23] MEDS ORDERED: ISOVUE-370 76% 100ML VIAL (Q9967) As Ordered (18:08)
[2018-10-23] MEDS: CLINDAMYCIN 150 MG CAP PO (19:37)
== END 2018-10-23 19:58 | disposition home or self-care (01) ==
LOC: M ED 15:13
DX: R55 Syncope and collapse (principal); H65.192 Other acute nonsuppurative otitis media, left ear; H70.002 Acute mastoiditis without complications, left ear; E03.9 Hypothyroidism, unspecified; J45.909 Unspecified asthma, uncomplicated; G43.909 Migraine, unspecified, not intractable, without status migrainosus; K21.9 Gastro-esophageal reflux disease without esophagitis; K31.84 Gastroparesis; G40.A09 Absence epileptic syndrome, not intractable, without status epilepticus; M72.2 Plantar fascial fibromatosis; Z88.2 Allergy status to sulfonamides; Z88.8 Allergy status to other drugs, medicaments and biological substances; Z79.899 Other long term (current) drug therapy
CPT/HCPCS: Q9967

== ENCOUNTER → 2018-10-26 | Outpatient (REF) | payer BC ==
[2018-10-26 12:35] LABS: APPEARANCE, URINE CLEAR (CLEAR); BACTERIA, URINE AUTO 1+ (NEGATIVE); BILIRUBIN, URINE AUTO NEGATIVE (NEGATIVE); BLOOD, URINE BLOOD NEGATIVE (NEGATIVE); COLOR, URINE STRAW (YELLOW); GLUCOSE, URINE (UA) AUTO NEGATIVE (NEGATIVE); KETONE, URINE AUTO NEGATIVE (NEGATIVE); LEUKOCYTE ESTERASE, URINE AUTO NEGATIVE (NEGATIVE); NITRITE, URINE AUTO NEGATIVE (NEGATIVE); PROTEIN, URINE AUTO NEGATIVE (NEGATIVE); RBC, URINE AUTO 0 /HPF (0-3); SPECIFIC GRAVITY URINE AUTO 1.004 (1.002-1.035); SQUAMOUS EPITHELIAL CELL UR AU 1 /HPF (0-6); UROBILINOGEN, URINE AUTO 0.2 mg/dL (0.0-2.0); WBC, URINE AUTO 0 /HPF (0-3)
[2018-10-26 12:46] LABS: COMPLEMENT C3 168 MG/DL (90-180)
[2018-10-26 12:46] LABS: COMPLEMENT C4 28 MG/DL (10-40)
[2018-10-26 13:12] LABS: CREATININE,RANDOM URINE 34.8 MG/DL; TOTAL PROTEIN,RANDOM URINE 5.5 MG/DL (0.0-12.0)
[2018-10-28 00:50] LABS: ANA (HEP2) Positive (.); ANTI DOUBLE STRAND-DNA AB 16 IU/mL (0-9); RNP ANTIBODY < 0.2 AI (0.0-0.9); SMITHS ANTIBODY < 0.2 AI (0.0-0.9); SSA SJOGRENS A <0.2 AI (0.0-0.9); SSB SJOGRENS B <0.2 AI (0.0-0.9)
== END ==
LOC: M SFHCPLAZ 08:52
DX: M35.9 Systemic involvement of connective tissue, unspecified (principal)
CPT/HCPCS: 86255

== ENCOUNTER → 2018-10-29 | Outpatient (REF) | payer BC ==
[2018-10-29 14:21] LABS: FERRITIN 21 NG/ML (8-252); IRON (FE) 60 UG/DL (50-170); TOTAL IRON BINDING CAPACITY 401 UG/DL (250-450)
[2018-10-29 15:11] LABS: IMMUNOGLOBULIN A 125 MG/DL (70-400); IMMUNOGLOBULIN G 834 MG/DL (681-1648); IMMUNOGLOBULIN M 87 MG/DL (40-230)
[2018-11-03 00:31] LABS: ANCA-ATYPICAL <1:20 titer (Neg:<1:20); CYTOPLASMIC NEUTROP AB ANCA-C <1:20 titer (Neg:<1:20); PERINUCLEAR AB ANCA-P <1:20 titer (Neg:<1:20)
== END ==
LOC: M LAB REF 13:05
DX: R06.00 Dyspnea, unspecified (principal)
CPT/HCPCS: 83550

== ENCOUNTER → 2018-11-23 | Outpatient (REF) | payer BC ==
[~2018-11-23] MED LIST changes: +CLIN150C14 PO; +GABA-845 PO; +HYDR-643 PO; -METHACHOLINE KIT (J7674) INH ONE; -PANT20TA PO; +PANT20TA2 PO; +PRAZ2CAP PO; +VITA500046 PO
[2018-11-27 08:06] LABS: FREE CORTISOL 24HR URINE 22 ug/24 hr (0-50); FREE CORTISOL URINE 16 ug/L (Undefined)
== END ==
LOC: M LAB REF 10:24
PROVIDERS: ATTEND Physician Assistant
DX: R21 Rash and other nonspecific skin eruption (principal)

== ENCOUNTER → 2018-11-26 | Outpatient (CLI) | payer BC | LOC: M CARPUL 08:36 | PROVIDERS: ATTEND Internal Medicine Pulmonary Disease | DX: R06.00 Dyspnea, unspecified (principal) ==

== ENCOUNTER → 2019-01-04 | Outpatient (CLI) | payer BC ==
[2019-01-04 17:00] LABS: FREE T4 1.25 NG/DL (0.76-1.46); THYROID STIMULATING HORMONE 0.683 uIU/ML (0.358-3.740)
== END ==
LOC: M LAB 15:48
PROVIDERS: ATTEND Family Medicine
DX: E03.9 Hypothyroidism, unspecified (principal)

== ENCOUNTER → 2019-03-03 | Outpatient (CLI) | payer BC ==
[~2019-03-03] MED LIST changes: +GABA600T4 PO; +KEPP10002 PO; +LINZ145C PO; +PROBCAP14 PO; +REGL5TAB2 PO; +TIZA4CAP PO; +VIIB20TA PO; +VIST50CA PO
--- NOTE | 2019-03-04 20:27 | SLEEPCENT ---
DATE OF PROCEDURE: 03/03/2019 ORDERED BY: Dr. Cueto Polysomnography was performed during daytime hours (the patient's usual sleep period). 5 hours and 38 minutes of data were reviewed. There were 252 minutes of sleep identified. Sleep latency was mildly prolonged at 27.5 minutes consistent with laboratory effect. Rapid eye movement (REM) latency was prolonged at 253.5 minutes, possibly medication effect. Sleep architecture was fair. There was a period of wake in the midportion of the study for no apparent reason. REM sleep was achieved late in the test and overall sleep efficiency of 77.1%. The electrocardiogram shows a sinus rhythm with an average heart rate of 80 beats per minute. Rate ranged 70 to 100. EEG shows essentially normal waveforms for awake and sleep. There were no focal events identified. There were only three hypopneic respiratory events identified of 10 seconds in duration or greater for an apnea-hypopnea index well within normal limits of 0.7. Snoring was noted over the course of the study and respiratory related arousals, when arousals from snoring were included, occurred 1.7 times per hour. There was some scattered limb activity but no trains of events. Limb movement arousal index was within normal range at 4. Oxygen saturations remained 90% plus with only one brief episode related to artifact. Snoring was noted frequently and was not related to body posture. IMPRESSION: Normal daytime polysomnogram with snoring.
== END ==
LOC: M SLEEP 07:02
PROVIDERS: ATTEND Internal Medicine Pulmonary Disease
DX: G47.00 Insomnia, unspecified (principal)

== ENCOUNTER 2019-03-11 07:57 | Day surgery (SDC) | payer BC ==
[~2019-03-11] VITALS: Ht 160 cm; Wt 108.9 kg
[~2019-03-11 07:57] MED LIST changes: +LIDOCAINE 2% INJ 100 MG/5 ML SDV (FOR ANES.) As Ordered ONE; +NS 1,000 ML IV ONE; +PROPOFOL 200 MG/20 ML VIAL As Ordered ONE
--- NOTE | 2019-03-11 08:57 | ROOR ---
Patient Name: Tiarra Oliver Procedure Date: 03/11/2019 8:42 AM Date of : 1980 Age: 38 Room: [facility] Gender: Female Note Status: Finalized Procedure: Upper GI endoscopy Indications: Suspected esophageal reflux Providers: Alek Rg Jr, MD Referring MD: Madelin GRAHAM DO Requesting Provider: Medicines: Propofol per Anesthesia Complications: No immediate complications. Procedure: Pre-Anesthesia Assessment: - Prior to the procedure, a History and Physical was performed, and patient medications and allergies were reviewed. The patient is competent. The risks and benefits of the procedure and the sedation options and risks were discussed with the patient. All questions were answered and informed consent was obtained. Patient identification and proposed procedure were verified by the physician and the nurse in the pre-procedure area and in the procedure room. Mental Status Examination: alert and oriented. Airway Examination: normal oropharyngeal airway and neck mobility. Respiratory Examination: clear to auscultation. CV Examination: normal. ASA Grade Assessment: II - A patient with mild systemic disease. After reviewing the risks and benefits, the patient was deemed in satisfactory condition to undergo the procedure. The anesthesia plan was to use moderate sedation / analgesia (conscious sedation). Immediately prior to administration of medications, the patient was re-assessed for adequacy to receive sedatives. The heart rate, respiratory rate, oxygen saturations, blood pressure, adequacy of pulmonary ventilation, and response to care were monitored throughout the procedure. The physical status of the patient was re-assessed after the procedure. The Endoscope was introduced through the mouth, and advanced to the second part of duodenum. The patient tolerated the procedure well. Findings: The upper third of the esophagus, middle third of the esophagus and lower third of the esophagus were normal. Striped mildly erythematous mucosa without bleeding was found in the prepyloric region of the stomach. Biopsies were taken with a cold forceps for histology. The cardia, gastric fundus, gastric body, greater curvature of the stomach, lesser curvature of the stomach and gastric antrum were normal. The duodenal bulb, first portion of the duodenum and second portion of the duodenum were normal. A small hiatal hernia was present. Impression: - Normal upper third of esophagus, middle third of esophagus and lower third of esophagus. - Erythematous mucosa in the prepyloric region of the stomach. Biopsied. - Normal cardia, gastric fundus, gastric body, greater curvature of the stomach, lesser curvature of the stomach and antrum. - Normal duodenal bulb, first portion of the duodenum and second portion of the duodenum. - Small hiatal hernia. Recommendation: - Discharge patient to home (ambulatory). - Do a REPEAT gastric emptying study TO BE scheduled. IF NEG MAY NET ANTIREFLUX SURG BURCH IF DELAYED THEN REFERRAL TO BARIATRIC SURGERY FOR GASTRIC EMPTYING PROCEDURE/BYPASS Alek Rg MD Alek Rg Jr, MD 03/11/2019 8:57:30 AM Electronically signed by Alek Rg Jr, MD Number of Addenda: 0 Note Initiated On: 03/11/2019 8:42 AM Estimated Blood Loss: Estimated blood loss: none.
[2019-03-11 09:15] VITALS: BP 125/81
== END 2019-03-11 09:34 | disposition home or self-care (01) ==
LOC: M OPP 07:57
PROVIDERS: ATTEND Surgery
DX: K44.9 Diaphragmatic hernia without obstruction or gangrene (principal); K31.89 Other diseases of stomach and duodenum

== ENCOUNTER → 2019-04-07 | Outpatient (REF) | payer BC ==
[~2019-04-07] MED LIST changes: -LIDOCAINE 2% INJ 100 MG/5 ML SDV (FOR ANES.) As Ordered ONE; -NS 1,000 ML IV ONE; -PROPOFOL 200 MG/20 ML VIAL As Ordered ONE
[2019-04-07 13:03] LABS: BASO # 0.1 10^3/uL (0.0-0.2); BASO % 0.7 % (0.0-1.0); EOS # 0.3 10^3/uL (0.0-0.50); HEMATOCRIT 38.8 % (36.0-47.0); HEMOGLOBIN 12.5 g/dl (12.0-15.5); LYMPH # 2.8 10^3/uL (1.5-4.5); LYMPH % 33.7 % (24.0-44.0); MEAN CORPUSCULAR HEMOGLOBIN 28.5 pg (27.0-33.0); MEAN CORPUSCULAR HGB CONC 32.2 g/dl (32.0-36.5); MEAN CORPUSCULAR VOLUME 88.6 fl (80.0-96.0); MONO # 0.7 10^3/uL (0.0-0.8); MONO % 8.3 % (0.0-5.0); NEUTROPHILS # 4.5 10^3/uL (1.8-7.7); NEUTROPHILS % 54.1 % (36.0-66.0); PLATELET COUNT, AUTOMATED 424 10^3/uL (150-450); RED BLOOD COUNT 4.38 10^6/uL (4.00-5.40); WHITE BLOOD COUNT 8.3 10^3/uL (4.0-10.0)
[2019-04-07 14:04] LABS: ALBUMIN 4.1 GM/DL (3.2-5.2); ALT/SGPT 28 U/L (12-78); BILIRUBIN,TOTAL 0.2 MG/DL (0.2-1.0); BLOOD UREA NITROGEN 11 MG/DL (7-18); CALCIUM LEVEL 9.6 MG/DL (8.5-10.1); CARBON DIOXIDE LEVEL 25 MEQ/L (21-32); CHLORIDE LEVEL 107 MEQ/L (98-107); COMPLEMENT C3 189 MG/DL (90-180); COMPLEMENT C4 33 MG/DL (10-40); CREATININE FOR GFR 0.93 MG/DL (0.55-1.30); GLOMERULAR FILTRATION RATE > 60.0 (>60); GLUCOSE, FASTING 86 MG/DL (70-100); POTASSIUM SERUM 4.5 MEQ/L (3.5-5.1); SODIUM LEVEL 138 MEQ/L (136-145); TOTAL PROTEIN 7.4 GM/DL (6.4-8.2)
[2019-04-10 00:06] LABS: ANA (HEP2) Positive (.)
[2019-04-12 14:12] LABS: ANTI DS-DNA AB <1:10 titer (.)
== END ==
LOC: M SFHCPLAZ 09:21
PROVIDERS: ATTEND Internal Medicine Rheumatology
DX: M35.9 Systemic involvement of connective tissue, unspecified (principal)

== ENCOUNTER → 2019-07-02 | Outpatient (CLI) | payer BC ==
[2019-07-02 11:11] LABS: BASO # 0.1 10^3/uL (0.0-0.2); BASO % 0.9 % (0.0-1.0); EOS # 0.2 10^3/uL (0.0-0.50); EOS % 2.7 % (0.0-3.0); HEMATOCRIT 37.8 % (36.0-47.0); HEMOGLOBIN 12.9 g/dl (12.0-15.5); LYMPH # 3.1 10^3/uL (1.5-4.5); LYMPH % 41.4 % (24.0-44.0); MEAN CORPUSCULAR HEMOGLOBIN 29.5 pg (27.0-33.0); MEAN CORPUSCULAR HGB CONC 34.1 g/dl (32.0-36.5); MEAN CORPUSCULAR VOLUME 86.5 fl (80.0-96.0); MONO # 0.6 10^3/uL (0.0-0.8); MONO % 8.5 % (0.0-5.0); NEUTROPHILS # 3.5 10^3/uL (1.8-7.7); NEUTROPHILS % 46.2 % (36.0-66.0); PLATELET COUNT, AUTOMATED 394 10^3/uL (150-450); RED BLOOD COUNT 4.37 10^6/uL (4.00-5.40); WHITE BLOOD COUNT 7.5 10^3/uL (4.0-10.0)
[2019-07-02 11:50] LABS: ALBUMIN 3.7 GM/DL (3.2-5.2); ALT/SGPT 26 U/L (12-78); BILIRUBIN,TOTAL 0.2 MG/DL (0.2-1.0); BLOOD UREA NITROGEN 10 MG/DL (7-18); CALCIUM LEVEL 9.4 MG/DL (8.5-10.1); CARBON DIOXIDE LEVEL 24 MEQ/L (21-32); CHLORIDE LEVEL 107 MEQ/L (98-107); CHOLESTEROL LEVEL 262 MG/DL (<200); CHOLESTEROL RISK RATIO 6.093 (<5); CREATININE FOR GFR 0.85 MG/DL (0.55-1.30); FREE T4 0.95 NG/DL (0.76-1.46); GLOMERULAR FILTRATION RATE > 60.0 (>60); GLUCOSE, FASTING 83 MG/DL (70-100); HDL CHOLESTEROL 43 MG/DL (>40); LDL CHOLESTEROL 181 MG/DL (<100); NON-HDL-C 219 MG/DL; POTASSIUM SERUM 3.8 MEQ/L (3.5-5.1); SODIUM LEVEL 142 MEQ/L (136-145); TOTAL PROTEIN 7.2 GM/DL (6.4-8.2); TRIGLYCERIDES LEVEL 188 MG/DL (<150)
[2019-07-02 11:51] LABS: TOTAL 25(OH) VITAMIN D 37.6 NG/ML (30.0-100.0)
== END ==
LOC: M LAB 08:59
PROVIDERS: ATTEND Family Medicine
DX: E78.2 Mixed hyperlipidemia (principal); E03.9 Hypothyroidism, unspecified; E55.9 Vitamin D deficiency, unspecified; M32.9 Systemic lupus erythematosus, unspecified

== ENCOUNTER → 2019-08-10 | Outpatient (CLI) | payer BC ==
--- NOTE | 2019-08-10 09:13 | REP ---
ULTRASOUND CHEST WALL: Real-time sonographic evaluation of right posterior-superior chest wall performed at the site of a reported palpable lump. There is no sonographic evidence of cystic or solid mass at the site of clinical concern. Normal soft tissue and fascial planes are identified. If there is continued clinical concern for an underlying soft tissue mass, then I would recommend MRI with and without contrast. Electronically Signed by Juan Carlos Salcedo MD 08/11/2019 10:47 A
--- NOTE | 2019-08-10 10:11 | REP ---
CT of the temporal bones without contrast Indication: Other mastoiditis and related conditions, left ear. History of mastoiditis with recurrent fever and left ear pain evaluate for recurrence. Comparison: CT maxillofacial bones of 10/23/2018. Technique: Axial CT of both temporal bones was performed without contrast. Right and left coronal and axial bone reformatted images were provided. Findings: On the right side, the external auditory canal is patent. The tympanic membrane is unremarkable. The middle ear cavity is clear. The ossicles are intact. The inner ear structures, including the semicircular canals, vestibule, and cochlea are unremarkable. The vestibular aqueduct is not enlarged. The right facial nerve has a normal course. The course of the ICA and position of the jugular bulb are normal. On the left side, the external auditory canal is patent. The tympanic membrane is unremarkable. The middle ear cavity is clear. The ossicles are intact. The inner ear structures, including the semicircular canals, vestibule, and cochlea are unremarkable. The vestibular aqueduct is not enlarged. The left facial nerve has a normal course. The course of the ICA and position of the jugular bulb are normal. No definite abnormality is seen within the visualized portion of the brain parenchyma. The visualized paranasal sinuses are clear. Impression: Unremarkable CT of the temporal bones without contrast. Electronically Signed by Artemio Colon MD 08/10/2019 10:03 A
== END ==
LOC: M RAD 07:27
PROVIDERS: ATTEND Physician Assistant
DX: H70.892 Other mastoiditis and related conditions, left ear (principal); R22.2 Localized swelling, mass and lump, trunk

== ENCOUNTER 2019-08-29 07:33 | Emergency (ER) | payer BC ==
[~2019-08-29] VITALS: Ht 160 cm; Wt 107.9 kg
[2019-08-29] MEDS ORDERED: ROSU5TAB5 (07:44)
[2019-08-29 08:56] LABS: BASO # 0.1 10^3/uL (0.0-0.2); BASO % 0.7 % (0.0-1.0); EOS # 0.1 10^3/uL (0.0-0.5); HEMATOCRIT 40.5 % (36.0-47.0); HEMOGLOBIN 13.3 g/dl (12.0-15.5); LYMPH # 2.8 10^3/uL (1.5-5.0); LYMPH % 27.5 % (24.0-44.0); MEAN CORPUSCULAR HEMOGLOBIN 30.8 pg (27.0-33.0); MEAN CORPUSCULAR HGB CONC 32.8 g/dl (32.0-36.5); MEAN CORPUSCULAR VOLUME 93.8 fl (80.0-96.0); MONO # 0.7 10^3/uL (0.0-0.8); MONO % 7.4 % (0.0-5.0); NEUTROPHILS # 6.4 10^3/uL (1.5-8.5); NEUTROPHILS % 63.1 % (36.0-66.0); PLATELET COUNT, AUTOMATED 383 10^3/uL (150-450); RED BLOOD COUNT 4.32 10^6/uL (4.00-5.40); WHITE BLOOD COUNT 10.1 10^3/uL (4.0-10.0)
[2019-08-29 09:24] LABS: ERYTHROCYTE SEDIMENTATION RATE 43 mm/hr (0-20)
[2019-08-29 09:31] LABS: ALBUMIN 3.9 GM/DL (3.2-5.2); ALT/SGPT 15 U/L (12-78); BILIRUBIN,DIRECT < 0.1 MG/DL (0.0-0.2); BILIRUBIN,TOTAL 0.3 MG/DL (0.2-1.0); BLOOD UREA NITROGEN 8 MG/DL (7-18); C REACTIVE PROTEIN QUANTITATIV 1.11 MG/DL (0.00-0.30); CALCIUM LEVEL 9.3 MG/DL (8.5-10.1); CARBON DIOXIDE LEVEL 22 MEQ/L (21-32); CHLORIDE LEVEL 106 MEQ/L (98-107); CREATININE FOR GFR 0.95 MG/DL (0.55-1.30); GLOMERULAR FILTRATION RATE > 60.0 (>60); GLUCOSE, FASTING 81 MG/DL (70-100); LDH LACTATE DEHYDROGENASE 173 U/L (84-246); POTASSIUM SERUM 3.7 MEQ/L (3.5-5.1); RHEUMATOID FACTOR QUANT < 10.0 IU/ML (<15.0); SODIUM LEVEL 140 MEQ/L (136-145); T UPTAKE 29 % (30-39); THYROXINE (T4) 13.9 UG/DL (4.5-12.0); TOTAL PROTEIN 7.5 GM/DL (6.4-8.2)
[2019-08-29 10:14] VITALS: BP 129/85
--- NOTE | 2019-08-29 10:21 | REP ---
CHEST PA AND LATERAL: 08/29/2019. Comparison: 06/18/2017, 05/15/2016, CT 06/24/2016. Clinical history: Persistent fever and cough. Findings: Lungs are well inflated. CP angles sharply defined. There is no lateral pleural thickening apical scarring or pneumothorax. Epicardial fat pads are prominent on both sides of the heart as on CT. I see no dense consolidation with air bronchograms. No parenchymal lung lesions. There is cuffed bronchi in the perihilar region representing bronchitis or reactive airway disease. The heart, mediastinal and hilar contours are normal. Aorta and airway intact bony thorax shows no focal lesion. Impression: 1. Some peribronchial thickening in the perihilar regions without dense consolidation, pleural effusion or other acute finding. Epicardial fat pads on both sides of the heart as on CT in 2016. Electronically Signed by Aden Mcdonald MD 08/29/2019 01:09 P
[2019-09-01 00:08] LABS: ANTI DOUBLE STRAND-DNA AB 11 IU/mL (0-9); ANTINUCLEAR ANTIBODIES DIRECT Positive (Negative); RNP ANTIBODIES <0.2 AI (0.0-0.9); SJOGREN'S ANTI SS-A <0.2 AI (0.0-0.9); SJOGREN'S ANTI SS-B <0.2 AI (0.0-0.9); SMITH ANTIBODIES <0.2 AI (0.0-0.9)
== END 2019-08-29 10:25 | disposition home or self-care (01) ==
LOC: M ED 07:33
DX: R50.9 Fever, unspecified (principal); R53.81 Other malaise; J45.909 Unspecified asthma, uncomplicated; E03.9 Hypothyroidism, unspecified; G43.909 Migraine, unspecified, not intractable, without status migrainosus; Z79.899 Other long term (current) drug therapy; Z79.890 Hormone replacement therapy; Z88.1 Allergy status to other antibiotic agents; Z88.2 Allergy status to sulfonamides; Z88.8 Allergy status to other drugs, medicaments and biological substances

== ENCOUNTER → 2019-09-13 | Outpatient (CLI) | payer BC ==
[~2019-09-13] MED LIST changes: +ROSU5TAB5
[2019-09-13 08:43] LABS: FREE T4 0.97 NG/DL (0.76-1.46); THYROID STIMULATING HORMONE 2.77 uIU/ML (0.358-3.740)
[2019-09-13 10:43] LABS: THYROID PEROXIDASE ANTIBODY 632.5 U/ML (<60.0)
[2019-09-13 10:54] LABS: THYROGLOBULIN ANTIBODY 313.2 U/ML (<60.0)
== END ==
LOC: M LAB 07:05
PROVIDERS: ATTEND Family Medicine
DX: E06.3 Autoimmune thyroiditis (principal)

== ENCOUNTER → 2020-01-03 | Outpatient (CLI) | payer BC ==
[2020-01-03 08:29] LABS: BASO # 0.1 10^3/uL (0.0-0.2); BASO % 0.8 % (0.0-1.0); EOS # 0.3 10^3/uL (0.0-0.5); EOS % 3.5 % (0.0-3.0); HEMATOCRIT 40.1 % (36.0-47.0); HEMOGLOBIN 13.1 g/dl (12.0-15.5); LYMPH # 2.8 10^3/uL (1.5-5.0); LYMPH % 36.7 % (24.0-44.0); MEAN CORPUSCULAR HEMOGLOBIN 30.8 pg (27.0-33.0); MEAN CORPUSCULAR HGB CONC 32.7 g/dl (32.0-36.5); MEAN CORPUSCULAR VOLUME 94.1 fl (80.0-96.0); MONO # 0.6 10^3/uL (0.0-0.8); MONO % 7.4 % (0.0-5.0); NEUTROPHILS % 51.5 % (36.0-66.0); PLATELET COUNT, AUTOMATED 346 10^3/uL (150-450); RED BLOOD COUNT 4.26 10^6/uL (4.00-5.40); WHITE BLOOD COUNT 7.7 10^3/uL (4.0-10.0)
[2020-01-03 09:07] LABS: BILIRUBIN,TOTAL 0.2 MG/DL (0.2-1.0); CALCIUM LEVEL 9.3 MG/DL (8.5-10.1); CHOLESTEROL RISK RATIO 3.615 (<5); CREATININE FOR GFR 1.08 MG/DL (0.55-1.30); FREE T4 1.09 NG/DL (0.76-1.46); GLOMERULAR FILTRATION RATE 59.8 (>58); POTASSIUM SERUM 3.8 MEQ/L (3.5-5.1); THYROID STIMULATING HORMONE 16.1 uIU/ML (0.358-3.740); TOTAL PROTEIN 7.7 GM/DL (6.4-8.2)
== END ==
LOC: M LAB 07:51
PROVIDERS: ATTEND Family Medicine
DX: E03.9 Hypothyroidism, unspecified (principal); N32.9 Bladder disorder, unspecified; E78.2 Mixed hyperlipidemia

== ENCOUNTER → 2020-02-26 | Outpatient (CLI) | payer BC ==
[2020-02-26 23:51] LABS: HEMOGLOBIN A1c 5.7 %
[2020-02-27 03:49] LABS: CALCIUM LEVEL 9.1 MG/DL (8.5-10.1); CREATININE FOR GFR 1.08 MG/DL (0.55-1.30); FREE T4 1.12 NG/DL (0.76-1.46); GLOMERULAR FILTRATION RATE 59.8 (>58); POTASSIUM SERUM 4.2 MEQ/L (3.5-5.1); THYROID STIMULATING HORMONE 12.9 uIU/ML (0.358-3.740)
== END ==
LOC: M LAB 22:20
PROVIDERS: ATTEND Physician Assistant
DX: Z00.00 Encounter for general adult medical examination without abnormal findings (principal); E06.3 Autoimmune thyroiditis; R73.01 Impaired fasting glucose

== ENCOUNTER → 2020-02-26 | Outpatient (CLI) | payer BC | LOC: M LAB 22:19 | PROVIDERS: ATTEND Physician Assistant Medical | DX: E55.9 Vitamin D deficiency, unspecified (principal); G40.89 Other seizures ==

== ENCOUNTER → 2020-05-03 | Outpatient (CLI) | payer BC ==
--- NOTE | 2020-05-05 02:02 | ECWPNPC ---
PATIENT NAME: EILEEN MARCUS : 1980 GENDER: FEMALE VISIT DATE: 05/03/2020 DISCHARGE DATE: 05/03/20 1435 VISIT LOCKED DATE TIME: PHYSICIAN: RAMOS GAGNON RESOURCE: RAMOS GAGNON REASON FOR APPOINTMENT 1. NECK/BACK-REFERRAL UNDER P2P HISTORY OF PRESENT ILLNESS GENERAL: 39-YEAR-OLD FEMALE BEING SEEN TODAY FOR CHRONIC NECK AND LOW BACK PAIN. CHIEF AREA OF PAIN IS LOW BACK. PAIN IS AGGRAVATED IN THIS REGION WITH RANGE OF JOINT MOTION OF THE LOW BACK. ALSO REPORTS INCREASED PAIN WITH PROLONGED SITTING OR STANDING. DENIES PRECIPITATING EVENT. HAS RESPONDED WELL TO TRIGGER POINT INJECTIONS DONE AT OUR CLINIC IN 2017. NO RECENT IMAGING. DISCUSSED MEDICATION AND TREATMENT OPTIONS. -. FALL RISK SCREENING: SCREENING :NO FALLS REPORTED IN THE LAST YEAR PAIN SCREENING: PATIENT HAS A COMPLAINT OF ACUTE OR CHRONIC PAIN :YES LOCATION OF PAIN:LOW BACK NECK PAIN IS A 3/10 LOW BACK 5/10 INTENSITY OF PAIN (SCALE OF 1 TO 10):5 WHAT DOES YOUR PAIN FEEL LIKE:ACHING, OTHER TIGHT DURATION:CONTINOUS PAIN IS INCREASED BY:PROLONGED STANDING, OTHERS PROLONGED ACTIVITES PAIN IS DECREASED BY:OTHERS NOTHING HELPS NURSING NOTE: -. PAIN CENTER INTAKE QUESTIONS: DO YOU HAVE A HISTORY OF MRSA? :NO DO YOU TAKE A BLOOD THINNERS? :NO DO YOU HAVE ANY BLEEDING DISORDERS? :YES IRON DEF ANEMIA ANY NEW NUMBNESS OR WEAKNESS IN YOUR LEGS OR ARMS? :NO ANY PACEMAKER,DEFIBRILLATOR, OR DORSAL COLUMN STIMULATOR? :NO DO YOU HAVE ANY RASHES OR OPEN SORES? :NO ARE YOU ALLERGIC TO IV DYE? :NO ARE YOU DIABETIC? :NO ANY NEW PROBLEMS WITH YOUR MEDICATIONS? :NO HAVE YOU RECEIVED A VACCINE IN THE PAST 30 DAYS? :NO DO YOU PLAN TO RECEIVE A VACCINE IN THE NEXT 21 DAYS? :NO DO YOU NEED ANY PRESCRIPTION? :NO DO YOU TAKE ANY IMMUNOSUPPRESSIVE MEDICATIONS? :NO ANY HISTORY OF SEIZURES? :YES ABSENT SEIZURES ANY HISTORY OF CARDIAC ISSUES OR EVENTS? :NO DO YOU HAVE SLEEP APNEA? :NO ANY RECENT HEAD INJURY? :NO HAVE YOU HAD A CHANGE IN YOUR PAIN OR NUMBNESS? :NO ANY CHANGE IN YOUR ABILITY TO CONTROL YOUR BLADDER? :NO DO YOU HAVE ANY NEW INFECTIONS? :NO CURRENT MEDICATIONS TAKING VITAMIN D3 5000 UNIT TABLET 1 TABLET ORALLY ONCE A DAY TAKING KEPPRA 500 MG TABLET 1 TAB ORALLY EVERY 12 HRS, NOTES: 1,000 BID TAKING REGLAN 5 MG TABLET 1 TAB ORALLY ONCE DAILY TAKING IMITREX 50 MG TABLET 1 TABLET NEEDED ORALLY TWICE A DAY TAKING FERROUS SULFATE 325 MG CAPSULE DIRECTED ORALLY TAKING MYRBETRIQ 25 MG TABLET EXTENDED RELEASE 24 HOUR TAKE ONE TABLET BY MOUTH EVERY DAY ORAL TAKING PANTOPRAZOLE SODIUM 40 MG TABLET DELAYED RELEASE TAKE ONE TABLET BY MOUTH EVERY DAY ORAL TAKING CRESTOR 5 MG TABLET 1 TABLET ORALLY ONCE A DAY TAKING SYNTHROID 175 MCG TABLET 1 TABLET ORALLY ONCE A DAY TAKING TIZANIDINE HCL 4 MG TABLET 1 TABLET ORALLY BEFORE BEDTIME TAKING VIIBRYD 40 MG TABLET 1 TAB ORALLY ONCE A DAY TAKING HYDROXYZINE HCL 50 MG TABLET 1 TABLET ORALLY EVERY NIGHT AND Q 6 HOURS PRN NOT-TAKING NEURONTIN 300 MG CAPSULE 2 CAPSULES EVERY NIGHT ORALLY DIRECTED NOT-TAKING LEVALBUTEROL TARTRATE 45 MCG/ACT AEROSOL 1 PUFF INHALATION EVERY 4 HOURS NEEDED MEDICATION LIST REVIEWED AND RECONCILED WITH THE PATIENT PAST MEDICAL HISTORY RECURRENT FEVER MIGRAINES HYPOTHYROIDISM ABSENCE SEIZURES ANXIETY DEPRESSION CHRONIC NECK AND LOW BACK PAIN EXERCISE-INDUCED ASTHMA KIDNEY STONES STRESS INCONTINENCE GASTROPARESIS IBS GERD ALLERGIES SULFA (FOR ALLERGY USE ONLY): RASH - ALLERGY LAMICTAL: RASH - ALLERGY VICODIN: VOMITING SURGICAL HISTORY TONSILLECTOMY ABOUT 1984 ADENOIDS REMOVED ABOUT 1984 ROSHNI PLANTAR FASCITIS RELEASE 2012 OR 2013 FAMILY HISTORY FATHER: ALIVE MOTHER: ALIVE SIBLINGS: ALIVE 1DAUGHTER(S) . NO FAMILY HISTORY OF AUTOIMMUNE DISEASEFATHER- HX SKIN CANCER, PROSATTE CANCER MOTHER- HYPOTHYROID, ASTHMA SISTER- HYPOTHYROIDDAUGHTER- MIGRAINES, GERD. SOCIAL HISTORY GENERAL: TOBACCO USE ARE YOU A:NONSMOKER LATEX QUESTIONNAIRE LATEX ALLERGY : HAVE YOU EVER DEVELOPED ANY TYPE OF REACTION AFTER HANDLING LATEX PRODUCTS SUCH RUBBER GLOVES, CONDOMS, DIAPHRAGMS, BALLOONS, SOCKS, OR UNDERWEAR?NO LATEX ALLERGY : HAVE YOU EVER DEVELOPED ANY TYPE OF REACTION DURING OR AFTER DENTAL APPOINTMENT, VAGINAL/RECTAL EXAMINATION, SURGICAL PROCEDURE, OR ANY OTHER EXPOSURE?NO LATEX RISK : HAVE YOU EVER HAD ANY DIFFICULTY BREATHING OR HIVES AFTER EATING OR HANDLING ANY FRUITS, OR VEGETABLES; SUCH KIWI, BANANAS, STONE FRUITS, OR CHESTNUTSNO LATEX RISK : DO YOU HAVE A PREVIOUS PERSONAL HISTORY OF MORE THAN NINE SURGERIES, SPINA BIFIDA, OR REPEATED CATHERIZATIONS? NO LATEX RISK : ARE YOU FREQUENTLY EXPOSED TO LATEX PRODUCTS IN YOUR OCCUPATION?NO DATE ASKED : 05/03/2020 LUNG CANCER SCREENING SMOKING STATUS:NON SMOKER ALCOHOL SCREENING DID YOU HAVE A DRINK CONTAINING ALCOHOL IN THE PAST YEAR?YES HOW OFTEN DID YOU HAVE A DRINK CONTAINING ALCOHOL IN THE PAST YEAR?MONTHLY OR LESS (1 POINT) HOW MANY DRINKS DID YOU HAVE ON A TYPICAL DAY WHEN YOU WERE DRINKING IN THE PAST YEAR?1 OR 2 (0 POINTS) HOW OFTEN DID YOU HAVE SIX OR MORE DRINKS ON ONE OCCASION IN THE PAST YEAR?NEVER (0 POINTS) POINTS1 INTERPRETATIONNEGATIVE RECREATIONAL DRUG USE DRUG USE?NO PATIENT DENIES ABUSE OR MISSUSED OF ANY MEDICATION. PATIENT DENIES USE OF ANY ILLEGAL SUBSTANCE INCLUDING MARIJUANA OR COCAINE. CAFFEINE CAFFEINE USE?YES [place] DEW 20 OZ PER DAY HIV / HEP-C SCREENING HIV TEST OFFERED TO PATIENT:YES DATE OFFERED:10/05/2019 TEST ACCEPTED:NO HEP-C TEST OFFERED TO PATIENT:YES DATE OFFERED:10/05/2019 TEST ACCEPTED:NO BROCHURE PROVIDED TO PATIENTYES BUDDHIST [id number] NONE LANGUAGE LANGUAGES SPOKEN:BENGALI EDUCATION LEVEL OF EDUCATION:COLLEGE LEARNING BARRIERS / SPECIAL NEEDS BARRIERS TO LEARNING?NO HEARING IMPAIRED?NO VISION IMPAIRED?NO COGNITIVELY IMPAIRED?NO READINESS TO LEARN?YES LEARNING PREFERENCES?NO LEARNING CAPABILITIES PRESENT?YES EMOTIONAL BARRIERS?NO SPECIAL DEVICES?NO LAW ENFORCEMENT DIRECTOR NEEDED?NO DOMESTIC VIOLENCE DO YOU FEEL SAFE IN YOUR ENVIRONMENT?YES OCCUPATION: ER. DIET: REGULAR. EXERCISE: NO REGULAR EXERCISE. MARITAL STATUS: SINGLE. OTHERS AT HOME: DAUGHTER. PAIN CLINIC PFS, CLERGY, PUBLIC HEALTH REFERRALS PFS REFERRAL NEEDED?NO CLERGY REFERRAL NEEDED?NO PUBLIC HEALTH REFERRAL NEEDED?NO WAS THE PROVIDER NOTIFIED OF ANY PERTINENT INFO?YES HAS THE PATIENT BEEN EDUCATED REGARDING HIS/HER PLAN OF CARE?YES HAS THE PATIENT BEEN EDUCATED REGARDING PAIN, THE RISK FOR PAIN, THE IMPORTANCE OF EFFECTIVE PAIN MANAGEMENT, AND THE PAIN ASSESSMENT PROCESS?YES ADVANCE DIRECTIVE ADVANCE DIRECTIVE DISCUSSED WITH PATIENT:YES PATIENT STATES SHE HAS NO ADVANCED DIRECTIVES AND DECLINES INFO AT THIS TIME HOSPITALIZATION/MAJOR DIAGNOSTIC PROCEDURE RELATED TO SURGERY CHILDBIRTH 2007 REVIEW OF SYSTEMS CONSTITUTIONAL: ANY RECENT FEVER OR ILLNESS NO . CHILLS NO . GASTROENTEROLOGY: BOWEL INCONTINENCE NO . ANY NEW CHANGE IN BOWEL CONTROL? NO . ABDOMINAL PAIN NO . CONSTIPATION NO . GENITOURINARY: ANY NEW CHANGE IN BLADDER CONTROL? NO . IS THERE A CHANCE YOU COULD BE ? NO . URINARY INCONTINENCE NO . CARDIOLOGY: CHEST PRESSURE NO . CHEST PAIN NO . RESPIRATORY: COUGH NO . SHORTNESS OF BREATH NO . VITAL SIGNS WT 259.2 LBS, HT 63", BMI 45.91 INDEX, BP 138/89 MM HG, HR 102 /MIN, RR 18 /MIN, TEMP 99.1 F, OXYGEN SAT % 97%, SAFE IN ENV? (Y/N) YES, NA INITIALS AW 1324, REVIEWED BY: MISAEL. EXAMINATION GENERAL EXAMINATION: GENERALNO ACUTE DISTRESS, WELL NOURISHED AND HYDRATED. PSYCHAPPROPRIATE MOOD AND AFFECT . NECK:NO LYMPHADENOPATHY, SUPPLE, . LUNGS:CLEAR TO AUSCULTATION BILATERALLY, NO WHEEZES, RHONCHI, RALES. HEART:NO MURMURS, REGULAR RATE AND RHYTHM. MUSCULOSKELETAL:NORMAL RANGE OF MOTION, MST 5 OVER 5 UPPER AND LOWER EXTREMITIES. LUMBAR: TRIGGER POINTS:, ELICITED WITH PALPATION OVER LUMBAR PARAVERTEBRAL MUSCLES BILATERALLY. RANGE OF JOINT MOTION OF THE SPINE INCREASES PAIN IN THESE REGIONS. NEUROLOGIC EXAM:NORMAL SENSATION TO LIGHT TOUCH UPPER AND LOWER EXTREMITIES BILATERALLY . ASSESSMENTS MYALGIA, OTHER SITE - M79.18 (PRIMARY) SACROILIITIS, NOT ELSEWHERE CLASSIFIED - M46.1 TREATMENT MYALGIA, OTHER SITE START MOBIC TABLET, 15 MG, 1 TABLET, ORALLY, ONCE A DAY, 30 DAY(S), 30, REFILLS 1 [facility] MRI LUMBAR W/O CONTRAST (CPT [id number] NOTES: DISCUSSED TREATMENT PLAN WITH PATIENT. ADVISED TO START MOBIC 15 MG DAILY. MRI OF THE LS SPINE IS ORDERED TO EVALUATE FOR INTERVENTIONAL TREATMENT PLAN. TRIGGER POINT INJECTIONS, BILATERAL LOW BACK. FOLLOW-UP IS SCHEDULED POST PROCEDURE. TPI BILAT. LOW BACK. PREVENTIVE MEDICINE PAIN CLINIC TEACHING: PROCEDURE TEACHING TRIGGER POINT INJECTION INFORMATION PRINTED AND REVIEWED WITH PATIENT. PATIENT VERBALIZES UNDERSTANDING OF PROCEDURE AND OF PRE PROCEDURE INSTRUCTIONS REVIEWED. CONCEPCIÓN SIMPSON 05/03/2020 2:35:02 PM > . MEDITATION MELOXICAM DRUG INFORMATION PRINTED AND REVIEWED WITH PATIENT CONCEPCIÓN SIMPSON 05/03/2020 2:35:29 PM > . PROCEDURE CODES FA211 ESTABILISHED PATIENT [facility] FACILITY CHARGE DISPOSITION & COMMUNICATION FOLLOW UP POST (REASON: TPI BILAT. LOW BACK) ELECTRONICALLY SIGNED BY CARLOS MONTERO ON 05/04/2020 AT 03:34 PM EDT DISCLAIMER : THIS IS A VISIT SUMMARY EXTRACTED FROM THE [employer] CHART. IT IS NOT A COPY OF THE [employer] PROGRESS NOTE. MTDD
== END ==
LOC: M PAIN 13:30
PROVIDERS: ATTEND Nurse Practitioner Family
DX: M79.18 Myalgia, other site (principal); M46.1 Sacroiliitis, not elsewhere classified

== ENCOUNTER → 2020-05-13 | Outpatient (CLI) | payer BC | LOC: M LABSMTC 10:10 | PROVIDERS: ATTEND Anesthesiology | DX: Z03.818 Encounter for observation for suspected exposure to other biological agents ruled out (principal) | CPT/HCPCS: C9803; U0003 ==

== ENCOUNTER → 2020-05-16 | Outpatient (CLI) | payer BC ==
[~2020-05-16] MED LIST changes: +BUPIVACAINE HCL 0.25% 10ML VIAL As Ordered ONE; +BUPIVACAINE HCL 0.25% 30ML VIAL As Ordered ONE
--- NOTE | 2020-05-18 01:11 | ECWPNPC ---
PATIENT NAME: EILEEN MARCUS : 1980 GENDER: FEMALE VISIT DATE: 05/16/2020 DISCHARGE DATE: 05/16/20 1522 VISIT LOCKED DATE TIME: PHYSICIAN: LOTUS ROBERT MD RESOURCE: LOTUS ROBERT MD REASON FOR APPOINTMENT 1. TPI BILAT. LOW BACK HISTORY OF PRESENT ILLNESS PAIN CENTER INTAKE QUESTIONS: DO YOU HAVE A HISTORY OF MRSA? :NO DO YOU TAKE A BLOOD THINNERS? :NO DO YOU HAVE ANY BLEEDING DISORDERS? :NO ANY NEW NUMBNESS OR WEAKNESS IN YOUR LEGS OR ARMS? :NO ANY PACEMAKER,DEFIBRILLATOR, OR DORSAL COLUMN STIMULATOR? :NO DO YOU HAVE ANY RASHES OR OPEN SORES? :NO ARE YOU ALLERGIC TO IV DYE? :NO ARE YOU DIABETIC? :NO ANY NEW PROBLEMS WITH YOUR MEDICATIONS? :NO HAVE YOU RECEIVED A VACCINE IN THE PAST 30 DAYS? :NO DO YOU PLAN TO RECEIVE A VACCINE IN THE NEXT 21 DAYS? :NO DO YOU TAKE ANY IMMUNOSUPPRESSIVE MEDICATIONS? :NO ANY HISTORY OF SEIZURES? :NO ANY HISTORY OF CARDIAC ISSUES OR EVENTS? :NO DO YOU HAVE SLEEP APNEA? : NO , : NO. ANY RECENT HEAD INJURY? :NO DO YOU HAVE ANY NEW INFECTIONS? :NO IS THERE A CHANCE YOU COULD BE ? :NO ARE YOU BREAST FEEDING? :NO WHEN DID YOU LAST EAT? : -LATE LAST NIGHT WHEN DID YOU LAST DRINK? : - WHAT DID YOU LAST DRINK? : -THIS MORNING 0900 NAME OF PERSON DRIVING YOU HOME? : -" I WILL CALL MY PARENTS" DO YOU HAVE ANY OTHER QUESTIONS OR CONCERNS? : -" NO THANK YOU" GENERAL: -. FALL RISK SCREENING: SCREENING :NO FALLS REPORTED IN THE LAST YEAR PAIN SCREENING: PATIENT HAS A COMPLAINT OF ACUTE OR CHRONIC PAIN :NO NURSING NOTE: -. CURRENT MEDICATIONS TAKING VITAMIN D3 5000 UNIT TABLET 1 TABLET ORALLY ONCE A DAY TAKING KEPPRA 500 MG TABLET 1 TAB ORALLY EVERY 12 HRS, NOTES: 1,000 BID TAKING REGLAN 5 MG TABLET 1 TAB ORALLY ONCE DAILY TAKING IMITREX 50 MG TABLET 1 TABLET NEEDED ORALLY TWICE A DAY TAKING FERROUS SULFATE 325 MG CAPSULE DIRECTED ORALLY TAKING MYRBETRIQ 25 MG TABLET EXTENDED RELEASE 24 HOUR TAKE ONE TABLET BY MOUTH EVERY DAY ORAL TAKING PANTOPRAZOLE SODIUM 40 MG TABLET DELAYED RELEASE TAKE ONE TABLET BY MOUTH EVERY DAY ORAL TAKING CRESTOR 5 MG TABLET 1 TABLET ORALLY ONCE A DAY TAKING SYNTHROID 175 MCG TABLET 1 TABLET ORALLY ONCE A DAY TAKING TIZANIDINE HCL 4 MG TABLET 1 TABLET ORALLY BEFORE BEDTIME TAKING VIIBRYD 40 MG TABLET 1 TAB ORALLY ONCE A DAY TAKING HYDROXYZINE HCL 50 MG TABLET 1 TABLET ORALLY EVERY NIGHT AND Q 6 HOURS PRN TAKING MOBIC 15 MG TABLET 1 TABLET ORALLY ONCE A DAY NOT-TAKING NEURONTIN 300 MG CAPSULE 2 CAPSULES EVERY NIGHT ORALLY DIRECTED NOT-TAKING LEVALBUTEROL TARTRATE 45 MCG/ACT AEROSOL 1 PUFF INHALATION EVERY 4 HOURS NEEDED PAST MEDICAL HISTORY RECURRENT FEVER MIGRAINES HYPOTHYROIDISM ABSENCE SEIZURES ANXIETY DEPRESSION CHRONIC NECK AND LOW BACK PAIN EXERCISE-INDUCED ASTHMA KIDNEY STONES STRESS INCONTINENCE GASTROPARESIS IBS GERD ALLERGIES SULFA (FOR ALLERGY USE ONLY): RASH - ALLERGY LAMICTAL: RASH - ALLERGY VICODIN: VOMITING SURGICAL HISTORY TONSILLECTOMY ABOUT 1984 ADENOIDS REMOVED ABOUT 1984 ROSHNI PLANTAR FASCITIS RELEASE 2012 OR 2013 FAMILY HISTORY FATHER: ALIVE MOTHER: ALIVE SIBLINGS: ALIVE 1DAUGHTER(S) . NO FAMILY HISTORY OF AUTOIMMUNE DISEASEFATHER- HX SKIN CANCER, PROSATTE CANCER MOTHER- HYPOTHYROID, ASTHMA SISTER- HYPOTHYROIDDAUGHTER- MIGRAINES, GERD. HOSPITALIZATION/MAJOR DIAGNOSTIC PROCEDURE RELATED TO SURGERY CHILDBIRTH 2007 VITAL SIGNS WT 258 LBS, HT 63", BMI 45.70 INDEX, BP 137/98 MM HG, HR 93 /MIN, RR 18 /MIN, TEMP 98.6 F, OXYGEN SAT % 95%, NA INITIALS SC 13:32, REVIEWED BY: KG. EXAMINATION GENERAL EXAMINATION: THE PATIENT IS ALERT, ORIENTED TIMES THREE AND COOPERATIVE. HEART SHOWS REGULAR RHYTHM, NO MURMURS AND NO GALLOPS. LUNGS ARE CLEAR TO AUSCULTATION. ASSESSMENTS MYALGIA, OTHER SITE - M79.18 (PRIMARY) PROCEDURES PAIN NURSING RECORD PRE-PROCEDURE IV SITE NO IV, PRE-PROCEDURE ORAL MEDICATIONS NONE REQUESTED OR GIVEN PROCEDURE IN ROOM 1330, PHYSICIAN IN ROOM 1500, START 1505, FINISH 1512, PHYSICIAN OUT OF ROOM 1515, OUT OF ROOM 1525, STEROID NONE, O2 ROOM AIR, ECG NORMAL SINUS, PATIENT SHIELDED YES, SAFETY STRAP YES, PREP ALCOHOL, DRESSING TEGADERM LOC: 1. ALERT, ORIENTED RESP: 1. REGULAR, NO DYSPNEA COLOR: 1. PINK PN TRIGGER POINT INJECTION NO STEROIDS PRE PROCEDURE DIAGNOSIS 1. MYALGIA 2. PAIN AT BILATERAL LOWER BACK AREA POST PROCEDURE DIAGNOSIS 1. MYALGIA 2. PAIN AT BILATERAL LOWER BACK AREA PROCEDURE TRIGGER POINT INJECTION AT BILATERAL LOWER BACK AREA SURGEON DR. LOTUS ROBERT LEAD ASSISTANT MANAGER NONE ANESTHESIA LOCAL PRE PROCEDURE NOTE THE PATIENT HAS HISTORY OF CHRONIC PAIN AT RIGHT AND LEFT LOWER BACK AREA. I EVALUATED THE PATIENT AND REVIEWED THE CHART. THERE IS EVIDENCE OF BANDS OF TISSUE WITH RESTRICTION OF MOVEMENT AND PRESENCE OF TRIGGER POINT AT THE RIGHT AND LEFT LOWER BACK AREA. I WENT OVER THE RISKS, ALTERNATIVES, AND BENEFITS ASSOCIATED WITH THIS PROCEDURE. THE PATIENT WOULD LIKE TO PROCEED AND GAVE CONSENT TO PERFORM THE PROCEDURE. THE PATIENT DENIES UNEXPLAINABLE WEIGHT LOSS, FEVER, CHILLS, OR NEW CHANGES IN URINARY OR BOWEL CONTROL. THE PATIENT IS COVID-19 NEGATIVE DESCRIPTION OF PROCEDURE THE PATIENT WAS BROUGHT TO THE PROCEDURE ROOM AND PLACED IN THE SITTING POSITION. THE AREA WAS CLEANED WITH ALCOHOL. THE PROCEDURE WAS DONE USING ASEPTIC STERILE TECHNIQUES. I CHECKED LATERALITY AND THE LEVEL WHERE THE PROCEDURE WAS GOING TO BE PERFORMED WITH THE PATIENT AND THE SUPPORTING STAFF AT THE MOMENT OF THE TIME OUT IN THE PROCEDURE ROOM. USING A 25-GAUGE NEEDLE, TRIGGER POINTS WERE INJECTED INTO THE RIGHT AND LEFT LOWER BACK AREA WITH A TOTAL OF 40 ML OF BUPIVACAINE 0.25%. AGREED WITH THE PATIENT THE PROCEDURE WAS DONE WITHOUT STEROIDS. THERE WAS NO EVIDENCE OF BLOOD, PARESTHESIA OR CEREBROSPINAL FLUID DURING THE PROCEDURE. THE PATIENT WAS SENT TO THE RECOVERY ROOM. THE PATIENT WAS MOVING THE EXTREMITIES AND DOING WELL. THERE WAS NO COMPLICATION DURING THE PROCEDURE. EBL LESS THAN 5 ML POST PROCEDURE NOTE THE PROCEDURE DONE WAS DISCUSSED WITH THE PATIENT. THE PATIENT WILL BE SEEN IN A FOLLOW UP IN THE NEXT FEW WEEKS. I AM LOOKING FOR LONG LASTING PAIN RELIEF FOR THE PATIENT WITH THIS INTERVENTION. INSTRUCTIONS WERE GIVEN, QUESTIONS WERE ANSWERED, AND THE PATIENT EXPRESSED UNDERSTANDING AND AGREES WITH THE PLAN. I, OZIEL JOHNS, DOCUMENTED THE ABOVE INFORMATION ACTING A SCRIBE FOR DR. ROBERT. I HAVE REVIEWED THE ABOVE DOCUMENT, WRITTEN BY OZIEL JOHNS, KNOCKER OFF, AND I VERIFY THAT IT IS ACCURATE PROCEDURE CODES 41296 INJ TRIGGER POINT 12/02 MUSCL DISPOSITION & COMMUNICATION FOLLOW UP F/UP WITH BRIM POUNCER MACHINE OPERATOR (REASON: POST TPI ROSHNI LOW BACK) ELECTRONICALLY SIGNED BY LOTUS ROBERT MD, MD ON 05/17/2020 AT 05:27 PM EDT DISCLAIMER : THIS IS A VISIT SUMMARY EXTRACTED FROM THE [employer] CHART. IT IS NOT A COPY OF THE [employer] PROGRESS NOTE. MTDD
== END ==
LOC: M PAIN 13:15
PROVIDERS: ATTEND Anesthesiology
DX: M79.18 Myalgia, other site (principal)

== ENCOUNTER → 2020-06-09 | Outpatient (CLI) | payer BC ==
[~2020-06-09] MED LIST changes: -BUPIVACAINE HCL 0.25% 10ML VIAL As Ordered ONE; -BUPIVACAINE HCL 0.25% 30ML VIAL As Ordered ONE; -PANT20TA2 PO; +PANT20TA6 PO
--- NOTE | 2020-06-09 14:35 | REPVR ---
PROCEDURE INFORMATION: Exam: MR Lumbar Spine Without Contrast. Exam date and time: 06/09/2020 7:54 AM Age: 39 years old Clinical indication: Other: Myalgia, other site TECHNIQUE: Imaging protocol: Multiplanar magnetic resonance images of the lumbar spine without intravenous contrast. COMPARISON: MRI-Spine, L.S. without con 12/21/2016 9:18 AM FINDINGS: Vertebrae: There is no fracture or listhesis. Normal vertebral body alignment and heights are preserved. Spinal cord: The conus medullaris terminates at T12/L1. L1-L2: There is shallow disc bulging. There is mild facet hypertrophy. The spinal canal and neural foramina are patent. L2-L3: There is shallow disc bulging. There is mild facet and ligamentous hypertrophy. The spinal canal and neural foramina are patent. L3-L4: There is shallow disc bulging. There is mild facet and ligamentous hypertrophy. The spinal canal and neural foramina are patent. L4-L5: There is shallow disc bulging. There is mild facet hypertrophy. There is mild bilateral neural foraminal narrowing L5-S1: No significant disc disease. No significant spinal canal stenosis. No neural foraminal stenosis. Soft tissues: Unremarkable. IMPRESSION: Mild degenerative disc disease and spondylosis. No associated canal or neural foraminal compromise. Electronically signed by: Nikky Ramey On 06/09/2020 14:35:05 PM
== END ==
LOC: M RAD 07:03
PROVIDERS: ATTEND Nurse Practitioner Family
DX: M51.26 Other intervertebral disc displacement, lumbar region (principal); M46.1 Sacroiliitis, not elsewhere classified; M79.18 Myalgia, other site

== ENCOUNTER → 2020-06-15 | Outpatient (CLI) | payer BC ==
--- NOTE | 2020-06-20 05:24 | ECWPNPC ---
PATIENT NAME: EILEEN MARCUS : 1980 GENDER: FEMALE VISIT DATE: 06/15/2020 DISCHARGE DATE: 06/15/20 1056 VISIT LOCKED DATE TIME: PHYSICIAN: RAMOS GAGNON RESOURCE: RAMOS GAGNON REASON FOR APPOINTMENT 1. REVIEW MRI/POST PROC HISTORY OF PRESENT ILLNESS GENERAL: HERE FOR POST PROCEDURE FOLLOW-UP. HAD TRIGGER POINT INJECTIONS LOW BACK ON 05/16/2020. HAD SIGNIFICANT REDUCTION IN PAIN FOR APPROXIMATELY 3 WEEKS AND THEN PAIN HAS RETURNED TO BASELINE. PAIN IS LOCATED IN CENTRAL LOW BACK AREA. PAIN IS AGGRAVATED WITH GOING UP AND DOWN STAIRS OR GETTING IN AND OUT OF A CAR. REVIEWED MRI OF THE LS SPINE THAT WAS DONE 06/14/2020. THIS IS SHOWING MILD DEGENERATIVE CHANGES. DISCUSSED TREATMENT OPTIONS. -. FALL RISK SCREENING: SCREENING :NO FALLS REPORTED IN THE LAST YEAR PAIN SCREENING: PATIENT HAS A COMPLAINT OF ACUTE OR CHRONIC PAIN :YES LOCATION OF PAIN: LOW BACK INTENSITY OF PAIN (SCALE OF 1 TO 10):5 WHAT DOES YOUR PAIN FEEL LIKE:SORE, ACHING "TIGHTNESS" DURATION:CONTINOUS PAIN IS INCREASED BY:ACTIVITIES, PROLONGED STANDING PAIN HAS INTERFERED WITH THE FOLLOWING:HOUSEWORK PLAN/GOALS/TREATMENT/INTERVENTION/FOLLOW UP:SEE PLAN NURSING NOTE: -. PAIN CENTER INTAKE QUESTIONS: DO YOU HAVE A HISTORY OF MRSA? :NO DO YOU TAKE A BLOOD THINNERS? :NO DO YOU HAVE ANY BLEEDING DISORDERS? :NO ANY NEW NUMBNESS OR WEAKNESS IN YOUR LEGS OR ARMS? :NO ANY PACEMAKER,DEFIBRILLATOR, OR DORSAL COLUMN STIMULATOR? :NO DO YOU HAVE ANY RASHES OR OPEN SORES? :NO ARE YOU ALLERGIC TO IV DYE? :NO ARE YOU DIABETIC? :NO ANY NEW PROBLEMS WITH YOUR MEDICATIONS? :NO HAVE YOU RECEIVED A VACCINE IN THE PAST 30 DAYS? :NO DO YOU PLAN TO RECEIVE A VACCINE IN THE NEXT 21 DAYS? :NO DO YOU NEED ANY PRESCRIPTION? :YES MELOXICAM DO YOU TAKE ANY IMMUNOSUPPRESSIVE MEDICATIONS? :NO IS THERE A CHANCE YOU COULD BE ? :NO ARE YOU BREAST FEEDING? :NO CURRENT MEDICATIONS TAKING VITAMIN D3 5000 UNIT TABLET 1 TABLET ORALLY ONCE A DAY TAKING KEPPRA 500 MG TABLET 1 TAB ORALLY EVERY 12 HRS, NOTES: 1,000 BID TAKING REGLAN 5 MG TABLET 1 TAB ORALLY ONCE DAILY TAKING IMITREX 50 MG TABLET 1 TABLET NEEDED ORALLY TWICE A DAY TAKING FERROUS SULFATE 325 MG CAPSULE DIRECTED ORALLY TAKING MYRBETRIQ 25 MG TABLET EXTENDED RELEASE 24 HOUR TAKE ONE TABLET BY MOUTH EVERY DAY ORAL TAKING PANTOPRAZOLE SODIUM 40 MG TABLET DELAYED RELEASE TAKE ONE TABLET BY MOUTH EVERY DAY ORAL TAKING CRESTOR 5 MG TABLET 1 TABLET ORALLY ONCE A DAY TAKING SYNTHROID 175 MCG TABLET 1 TABLET ORALLY ONCE A DAY TAKING TIZANIDINE HCL 4 MG TABLET 1 TABLET ORALLY BEFORE BEDTIME TAKING VIIBRYD 40 MG TABLET 1 TAB ORALLY ONCE A DAY TAKING HYDROXYZINE HCL 50 MG TABLET 1 TABLET ORALLY EVERY NIGHT AND Q 6 HOURS PRN TAKING MOBIC 15 MG TABLET 1 TABLET ORALLY ONCE A DAY NOT-TAKING NEURONTIN 300 MG CAPSULE 2 CAPSULES EVERY NIGHT ORALLY DIRECTED NOT-TAKING LEVALBUTEROL TARTRATE 45 MCG/ACT AEROSOL 1 PUFF INHALATION EVERY 4 HOURS NEEDED MEDICATION LIST REVIEWED AND RECONCILED WITH THE PATIENT PAST MEDICAL HISTORY RECURRENT FEVER MIGRAINES HYPOTHYROIDISM ABSENCE SEIZURES ANXIETY DEPRESSION CHRONIC NECK AND LOW BACK PAIN EXERCISE-INDUCED ASTHMA KIDNEY STONES STRESS INCONTINENCE GASTROPARESIS IBS GERD ALLERGIES SULFA (FOR ALLERGY USE ONLY): RASH - ALLERGY LAMICTAL: RASH - ALLERGY VICODIN: VOMITING SURGICAL HISTORY TONSILLECTOMY ABOUT 1984 ADENOIDS REMOVED ABOUT 1984 ROSHNI PLANTAR FASCITIS RELEASE 2012 OR 2013 FAMILY HISTORY FATHER: ALIVE MOTHER: ALIVE SIBLINGS: ALIVE 1DAUGHTER(S) . NO FAMILY HISTORY OF AUTOIMMUNE DISEASEFATHER- HX SKIN CANCER, PROSATTE CANCER MOTHER- HYPOTHYROID, ASTHMA SISTER- HYPOTHYROIDDAUGHTER- MIGRAINES, GERD. SOCIAL HISTORY GENERAL: TOBACCO USE ARE YOU A:NONSMOKER LATEX QUESTIONNAIRE LATEX ALLERGY : HAVE YOU EVER DEVELOPED ANY TYPE OF REACTION AFTER HANDLING LATEX PRODUCTS SUCH RUBBER GLOVES, CONDOMS, DIAPHRAGMS, BALLOONS, SOCKS, OR UNDERWEAR?NO LATEX ALLERGY : HAVE YOU EVER DEVELOPED ANY TYPE OF REACTION DURING OR AFTER DENTAL APPOINTMENT, VAGINAL/RECTAL EXAMINATION, SURGICAL PROCEDURE, OR ANY OTHER EXPOSURE?NO LATEX RISK : HAVE YOU EVER HAD ANY DIFFICULTY BREATHING OR HIVES AFTER EATING OR HANDLING ANY FRUITS, OR VEGETABLES; SUCH KIWI, BANANAS, STONE FRUITS, OR CHESTNUTSNO LATEX RISK : DO YOU HAVE A PREVIOUS PERSONAL HISTORY OF MORE THAN NINE SURGERIES, SPINA BIFIDA, OR REPEATED CATHERIZATIONS? NO LATEX RISK : ARE YOU FREQUENTLY EXPOSED TO LATEX PRODUCTS IN YOUR OCCUPATION?NO DATE ASKED : 06/15/2020 LUNG CANCER SCREENING SMOKING STATUS:NON SMOKER ALCOHOL SCREENING DID YOU HAVE A DRINK CONTAINING ALCOHOL IN THE PAST YEAR?YES HOW OFTEN DID YOU HAVE SIX OR MORE DRINKS ON ONE OCCASION IN THE PAST YEAR?NEVER (0 POINTS) HOW MANY DRINKS DID YOU HAVE ON A TYPICAL DAY WHEN YOU WERE DRINKING IN THE PAST YEAR?1 OR 2 (0 POINTS) HOW OFTEN DID YOU HAVE A DRINK CONTAINING ALCOHOL IN THE PAST YEAR?MONTHLY OR LESS (1 POINT) POINTS1 INTERPRETATIONNEGATIVE RECREATIONAL DRUG USE DRUG USE?NO PATIENT DENIES ABUSE OR MISSUSED OF ANY MEDICATION. PATIENT DENIES USE OF ANY ILLEGAL SUBSTANCE INCLUDING MARIJUANA OR COCAINE. CAFFEINE CAFFEINE USE?YES M[place] DEW 20 OZ PER DAY HIV / HEP-C SCREENING HIV TEST OFFERED TO PATIENT:YES DATE OFFERED:10/05/2019 TEST ACCEPTED:NO HEP-C TEST OFFERED TO PATIENT:YES DATE OFFERED:10/05/2019 TEST ACCEPTED:NO BROCHURE PROVIDED TO PATIENTYES SHINTO [id number] NONE LANGUAGE LANGUAGES SPOKEN:GUINEAN EDUCATION LEVEL OF EDUCATION:COLLEGE LEARNING BARRIERS / SPECIAL NEEDS CHANGE FROM LAST VISIT?YES BARRIERS TO LEARNING?NO HEARING IMPAIRED?NO VISION IMPAIRED?YES :CORRECTIVE LENSES COGNITIVELY IMPAIRED?NO READINESS TO LEARN?YES LEARNING PREFERENCES?NO LEARNING CAPABILITIES PRESENT?YES EMOTIONAL BARRIERS?NO SPECIAL DEVICES?NO LITHOGRAPHIC PLATEMAKER NEEDED?NO DOMESTIC VIOLENCE DO YOU FEEL SAFE IN YOUR ENVIRONMENT?YES OCCUPATION: ER, [employer]. DIET: REGULAR. EXERCISE: NO REGULAR EXERCISE. MARITAL STATUS: SINGLE. OTHERS AT HOME: DAUGHTER. PAIN CLINIC PFS, CLERGY, PUBLIC HEALTH REFERRALS PFS REFERRAL NEEDED?NO CLERGY REFERRAL NEEDED?NO PUBLIC HEALTH REFERRAL NEEDED?NO WAS THE PROVIDER NOTIFIED OF ANY PERTINENT INFO?YES HAS THE PATIENT BEEN EDUCATED REGARDING HIS/HER PLAN OF CARE?YES HAS THE PATIENT BEEN EDUCATED REGARDING PAIN, THE RISK FOR PAIN, THE IMPORTANCE OF EFFECTIVE PAIN MANAGEMENT, AND THE PAIN ASSESSMENT PROCESS?YES ADVANCE DIRECTIVE ADVANCE DIRECTIVE DISCUSSED WITH PATIENT:YES PATIENT STATES SHE HAS NO ADVANCED DIRECTIVES AND DECLINES INFO AT THIS TIME HOSPITALIZATION/MAJOR DIAGNOSTIC PROCEDURE RELATED TO SURGERY CHILDBIRTH 2007 REVIEW OF SYSTEMS CONSTITUTIONAL: ANY RECENT FEVER NO . CHILLS NO . WEIGHT CHANGE OF UNKNOWN REASONS NO . GASTROENTEROLOGY: NEW UNEXPLAINABLE CHANGES IN BOWEL CONTROL NO . CONSTIPATION NO . GENITOURINARY: ANY NEW CHANGE IN BLADDER CONTROL? NO . NEUROLOGY: NEW ONSET DIZZINESS OR NEUROLOGICAL CHANGES NOT MENTIONED NO . NEW NUMBNESS OR PAIN PATTERNS NOT MENTIONED AND PERTINENT TO TODAY'S VISIT NO . CARDIOLOGY: NEW CHEST PRESSURE NO . NEW CHEST PAIN NO . RESPIRATORY: UNEXPLAINABLE COUGH NO . NEW SHORTNESS OF BREATH NO . VITAL SIGNS WT 260.0 LBS, HT 63", BMI 46.05 INDEX, BP 139/86 MM HG, HR 88 /MIN, RR 18 /MIN, TEMP 97.9 F, OXYGEN SAT % 97%, SAFE IN ENV? (Y/N) YES, NA INITIALS AW 0927, REVIEWED BY: MT. EXAMINATION GENERAL EXAMINATION: GENERAL ALERT,NO DISTRESS . PSYCH AFFECT NORMAL . LUNGS: LUNG SOUNDS ARE CLEAR . HEART: HEART RATE REGULAR . MUSCULOSKELETAL: MST 5/5 BILAT. LOWER EXTREMITIES . LUMBAR: TENDERNESS BILAT. SIJ . DIAGNOSTIC TESTS REVIEWEDMRI L/S SPINE-06/14/2020. ASSESSMENTS MYALGIA, OTHER SITE - M79.18 (PRIMARY) SACROILIITIS, NOT ELSEWHERE CLASSIFIED - M46.1 TREATMENT MYALGIA, OTHER SITE NOTES: BILAT SIJ W STEROID. PREVENTIVE MEDICINE PAIN CLINIC TEACHING: THE PATIENT HAS BEEN EDUCATED REGARDING HIS/HER PLAN OF CARE : PATIENT GIVEN EDUCATION ON BILATERAL SACROILIAC JOINT INJECTION PROCEDURE AND PRE PROCEDURE INSTRUCTIONS, PATIENT VERBALIZES UNDERSTANDING. PROCEDURE CODES FA211 ESTABILISHED PATIENT [facility] CHARGE DISPOSITION & COMMUNICATION FOLLOW UP POST (REASON: BILAT SIJ W STEROID) ELECTRONICALLY SIGNED BY CARLOS MONTERO ON 06/19/2020 AT 09:29 AM EDT DISCLAIMER : THIS IS A VISIT SUMMARY EXTRACTED FROM THE [employer] CHART. IT IS NOT A COPY OF THE [employer] PROGRESS NOTE. CRYSTAL
== END ==
LOC: M PAIN 09:15
PROVIDERS: ATTEND Nurse Practitioner Family
DX: M79.18 Myalgia, other site (principal); M46.1 Sacroiliitis, not elsewhere classified

== ENCOUNTER → 2020-07-19 | Outpatient (POV) | payer BC ==
[~2020-07-19] MED LIST changes: +BUPIVACAINE HCL 0.25% 30ML VIAL As Ordered ONE; +ISOVUE-M 300 61% 15ML VIAL As Ordered ONE; +LIDOCAINE 1% SDV 30ML VIAL As Ordered ONE; +ONDANSETRON 4 MG ORAL DISINTEGRATING TAB As Ordered ONE; +TRIAMCINOLONE ACETONIDE SUSP 40 MG/ML VIAL (J3301) As Ordered ONE; +diazePAM 5 MG TAB As Ordered ONE
--- NOTE | 2020-08-24 09:05 | REP ---
SI JOINT BILATERAL: 5-VIEWS, LIMITED STUDY HISTORY: Injection procedure for pain. 32 seconds of fluoroscopy time is reported. FINDINGS: A sequence of 5 last image hold fluoroscopically obtained spot radiographs of the SI joints document various needle positions associated with injection procedure. TATUMD
== END ==
LOC: M PAIN 10:15
PROVIDERS: ATTEND Anesthesiology
DX: M46.1 Sacroiliitis, not elsewhere classified (principal)

== ENCOUNTER → 2020-07-21 | Outpatient (CLI) | payer BC ==
[~2020-07-21] MED LIST changes: -BUPIVACAINE HCL 0.25% 30ML VIAL As Ordered ONE; -ISOVUE-M 300 61% 15ML VIAL As Ordered ONE; -LIDOCAINE 1% SDV 30ML VIAL As Ordered ONE; -ONDANSETRON 4 MG ORAL DISINTEGRATING TAB As Ordered ONE; -TRIAMCINOLONE ACETONIDE SUSP 40 MG/ML VIAL (J3301) As Ordered ONE; -diazePAM 5 MG TAB As Ordered ONE
== END ==
LOC: M LAB 09:06
PROVIDERS: ATTEND Physician Assistant Medical
DX: G40.89 Other seizures (principal)

== ENCOUNTER → 2020-07-21 | Outpatient (CLI) | payer BC ==
[2020-07-21 11:31] LABS: FREE T4 1.05 NG/DL (0.76-1.46); THYROID STIMULATING HORMONE 1.28 uIU/ML (0.358-3.740)
== END ==
LOC: M LAB 09:01
PROVIDERS: ATTEND Family Medicine
DX: E06.3 Autoimmune thyroiditis (principal)

== ENCOUNTER → 2020-08-09 | Outpatient (CLI) | payer BC | LOC: M PAIN 08:56 | PROVIDERS: ATTEND Nurse Practitioner Family | DX: M46.1 Sacroiliitis, not elsewhere classified (principal); M79.18 Myalgia, other site ==

== ENCOUNTER → 2020-12-08 | Outpatient (REF) | payer BC | LOC: M LAB REF 15:07 | PROVIDERS: ATTEND Family Medicine | DX: R30.0 Dysuria (principal); N76.0 Acute vaginitis ==

== ENCOUNTER → 2021-01-24 | Outpatient (CLI) | payer BC ==
[~2021-01-24] MED LIST changes: -CLIN150C14 PO; +CLIN150C15 PO
== END ==
LOC: M LAB 08:15
PROVIDERS: ATTEND Physician Assistant Medical
DX: R55 Syncope and collapse (principal)

== ENCOUNTER → 2021-01-24 | Outpatient (CLI) | payer BC ==
[2021-01-24 09:12] LABS: BASO # 0.1 10^3/uL (0.0-0.2); BASO % 0.7 % (0.0-1.0); EOS # 0.2 10^3/uL (0.0-0.5); HEMATOCRIT 40.9 % (36.0-47.0); HEMOGLOBIN 13.3 g/dl (12.0-15.5); LYMPH # 2.5 10^3/uL (1.5-5.0); MEAN CORPUSCULAR HEMOGLOBIN 30.3 pg (27.0-33.0); MEAN CORPUSCULAR HGB CONC 32.5 g/dl (32.0-36.5); MEAN CORPUSCULAR VOLUME 93.2 fl (80.0-96.0); MONO # 0.6 10^3/uL (0.0-0.8); MONO % 6.6 % (2.0-8.0); NEUTROPHILS # 5.5 10^3/uL (1.5-8.5); NEUTROPHILS % 62.5 % (36.0-66.0); PLATELET COUNT, AUTOMATED 379 10^3/uL (150-450); RED BLOOD COUNT 4.39 10^6/uL (4.00-5.40); WHITE BLOOD COUNT 8.9 10^3/uL (4.0-10.0)
[2021-01-24 09:44] LABS: ALBUMIN 4.1 GM/DL (3.2-5.2); ALT/SGPT 62 U/L (12-78); BILIRUBIN,TOTAL 0.4 MG/DL (0.2-1.0); BLOOD UREA NITROGEN 12 MG/DL (7-18); CALCIUM LEVEL 9.4 MG/DL (8.5-10.1); CARBON DIOXIDE LEVEL 23 MEQ/L (21-32); CHLORIDE LEVEL 107 MEQ/L (98-107); CHOLESTEROL LEVEL 202 MG/DL (<200); CREATININE FOR GFR 0.84 MG/DL (0.55-1.30); FERRITIN 218 NG/ML (8-252); FREE T4 0.94 NG/DL (0.76-1.46); GLOMERULAR FILTRATION RATE > 60.0 (>58); GLUCOSE, FASTING 77 MG/DL (70-100); HDL CHOLESTEROL 54 MG/DL (>40); IRON (FE) 63 UG/DL (50-170); LDL CHOLESTEROL 121 MG/DL (<100); NON-HDL-C 148 MG/DL; PERCENT SATURATION 18.1 % (13.2-45.0); POTASSIUM SERUM 3.5 MEQ/L (3.5-5.1); SODIUM LEVEL 140 MEQ/L (136-145); TOTAL IRON BINDING CAPACITY 349 UG/DL (250-450); TOTAL PROTEIN 7.5 GM/DL (6.4-8.2); TRIGLYCERIDES LEVEL 137 MG/DL (<150)
[2021-01-24 09:46] LABS: TOTAL 25(OH) VITAMIN D 42.8 NG/ML (30.0-100.0); VITAMIN B12 LEVEL 575 PG/ML (247-911)
== END ==
LOC: M LAB 08:13
PROVIDERS: ATTEND Family Medicine
DX: E06.3 Autoimmune thyroiditis (principal); E78.2 Mixed hyperlipidemia; K21.9 Gastro-esophageal reflux disease without esophagitis; E55.9 Vitamin D deficiency, unspecified

== ENCOUNTER → 2021-02-15 | Outpatient (REF) | payer BC | LOC: M LAB REF 18:11 | PROVIDERS: ATTEND Family Medicine | DX: J06.9 Acute upper respiratory infection, unspecified (principal) ==

== ENCOUNTER → 2021-04-03 | Outpatient (CLI) | payer BC ==
[2021-04-03 09:21] LABS: CHOLESTEROL RISK RATIO 3.962 (<5); FREE T4 1.03 NG/DL (0.76-1.46); THYROID STIMULATING HORMONE 18.6 uIU/ML (0.358-3.740)
== END ==
LOC: M LAB 07:51
PROVIDERS: ATTEND Family Medicine
DX: E06.3 Autoimmune thyroiditis (principal); E78.2 Mixed hyperlipidemia

== ENCOUNTER → 2021-04-06 | Outpatient (REF) | payer BC | LOC: M LAB REF 23:07 | PROVIDERS: ATTEND Physician Assistant | DX: J02.9 Acute pharyngitis, unspecified (principal) ==

== ENCOUNTER → 2021-06-21 | Outpatient (REF) | payer BC ==
[~2021-06-21] MED LIST changes: +GABA-283 PO; -GABA-845 PO
== END ==
LOC: M LAB REF 19:18
PROVIDERS: ATTEND Physician Assistant
DX: J06.9 Acute upper respiratory infection, unspecified (principal)

== ENCOUNTER → 2021-07-05 | Outpatient (CLI) | payer BC ==
[2021-07-05 09:19] LABS: BASO # 0.1 10^3/uL (0.0-0.2); BASO % 0.7 % (0.0-1.0); EOS # 0.2 10^3/uL (0.0-0.5); EOS % 1.4 % (0.0-3.0); HEMATOCRIT 44.2 % (36.0-47.0); HEMOGLOBIN 14.5 g/dl (12.0-15.5); LYMPH # 3.1 10^3/uL (1.5-5.0); LYMPH % 24.1 % (24.0-44.0); MEAN CORPUSCULAR HGB CONC 32.8 g/dl (32.0-36.5); MEAN CORPUSCULAR VOLUME 94.4 fl (80.0-96.0); MONO # 0.8 10^3/uL (0.0-0.8); NEUTROPHILS # 8.7 10^3/uL (1.5-8.5); NEUTROPHILS % 67.4 % (36.0-66.0); PLATELET COUNT, AUTOMATED 409 10^3/uL (150-450); RED BLOOD COUNT 4.68 10^6/uL (4.00-5.40); WHITE BLOOD COUNT 12.9 10^3/uL (4.0-10.0)
[2021-07-05 09:48] LABS: ALBUMIN 4.1 GM/DL (3.2-5.2); ALT/SGPT 28 U/L (12-78); BILIRUBIN,TOTAL 0.3 MG/DL (0.2-1.0); BLOOD UREA NITROGEN 14 MG/DL (7-18); CALCIUM LEVEL 10.1 MG/DL (8.5-10.1); CARBON DIOXIDE LEVEL 23 MEQ/L (21-32); CHLORIDE LEVEL 106 MEQ/L (98-107); CHOLESTEROL LEVEL 215 MG/DL (<200); CHOLESTEROL RISK RATIO 4.056 (<5); CREATININE FOR GFR 0.83 MG/DL (0.55-1.30); FERRITIN 201 NG/ML (8-252); FREE T4 0.99 NG/DL (0.76-1.46); GLOMERULAR FILTRATION RATE > 60.0 (>58); GLUCOSE, FASTING 69 MG/DL (70-100); HDL CHOLESTEROL 53 MG/DL (>40); IRON (FE) 56 UG/DL (50-170); LDL CHOLESTEROL 130 MG/DL (<100); NON-HDL-C 162 MG/DL; PERCENT SATURATION 14.2 % (13.2-45.0); SODIUM LEVEL 138 MEQ/L (136-145); TOTAL IRON BINDING CAPACITY 394 UG/DL (250-450); TOTAL PROTEIN 7.7 GM/DL (6.4-8.2); TRIGLYCERIDES LEVEL 159 MG/DL (<150)
[2021-07-05 09:49] LABS: TOTAL 25(OH) VITAMIN D 35.8 NG/ML (30.0-100.0)
== END ==
LOC: M LAB 08:05
PROVIDERS: ATTEND Family Medicine
DX: E06.3 Autoimmune thyroiditis (principal); D50.9 Iron deficiency anemia, unspecified; E55.9 Vitamin D deficiency, unspecified; E78.2 Mixed hyperlipidemia

== ENCOUNTER → 2021-07-10 | Outpatient (REF) | payer BC ==
[~2021-07-10] MED LIST changes: -CLIN150C15 PO; +CLIN150C17 PO
== END ==
LOC: M LAB REF 16:40
PROVIDERS: ATTEND Family Medicine
DX: R39.15 Urgency of urination (principal); N76.0 Acute vaginitis

== ENCOUNTER → 2021-08-03 | Outpatient (REF) | payer BC | LOC: M SFHCWAGY 13:16 | PROVIDERS: ATTEND Advanced Practice Midwife | DX: Z12.4 Encounter for screening for malignant neoplasm of cervix (principal) | CPT/HCPCS: 87624; G0123 ==

== ENCOUNTER → 2021-08-03 | Outpatient (CLI) | payer BC ==
--- NOTE | 2021-08-03 11:25 | REPMRS ---
Patient History The patient states she had a clinical breast exam 08-03-2021. No Hormone Replacement Therapy Patient states no breast complaints today. Patient has signed MRS History Sheet. Digital Woman Screen Mammo: August 03, 2021 - Exam #: [id number] Bilateral CC and MLO view(s) were taken. Technologist: Daniela Shah, Electrician Substation Supervisor Prior study comparison: January 25, 2020, bilateral screening 3D/tomosynthesis, performed at [facility]. FINDINGS: The breast tissue is almost entirely fat. The Volpara volumetric breast density category is: A. There is a 9.7 mm nodule in the left central breast, posterior 3rd. This appears more prominent. This merits further evaluation. There has been no other change in the appearance of the mammogram from the prior studies. There is no other interval development of dominant mass, architectural distortion, or grouped microcalcification typical of malignancy. 3-D tomosynthesis shows no additional findings. Assessment: BI-RADS/ACR category 0 mammogram, Incomplete. Need additonal imaging evaluation and/or prior mammograms for comparison. Recommendation Ultrasound and special view mammogram of the left breast. This patient's [facility] Lifetime Breast Cancer RIsk is estimated at 13.6 %. This mammogram was interpreted with the aid of an FDA-approved computer-aided dectection system. Electronically Signed By: Felipe Baeza MD 08/03/21 1124
== END ==
LOC: M WHC 09:27
PROVIDERS: ATTEND Advanced Practice Midwife
DX: R92.8 Other abnormal and inconclusive findings on diagnostic imaging of breast (principal)

== ENCOUNTER → 2021-09-10 | Outpatient (REF) | LOC: M EMP 08:02 | PROVIDERS: ATTEND Family Medicine | DX: Z20.828 Contact with and (suspected) exposure to other viral communicable diseases (principal); Z11.52 Encounter for screening for COVID-19 ==

== ENCOUNTER → 2021-09-13 | Outpatient (CLI) | payer BC ==
--- NOTE | 2021-09-13 09:43 | REP ---
INDICATION: DYSPNEA COMPARISON: 06/24/2016 the only prior a contrast-enhanced exam. TECHNIQUE: Standard helical technique without intravenous contrast administration. FINDINGS: The mediastinum and pulmonary imelda are essentially unchanged. No mass or adenopathy has developed. There are no pleural or pericardial effusions. The imaged upper abdomen and imaged osseous structures are essentially unchanged. Evaluation of the lung sanchez shows no new abnormal nodules, masses, or opacities. IMPRESSION: Stable CT examination of the chest. There is no evidence of acute disease. <Electronically signed by Orlin Brownlee > 09/13/21 3133
== END ==
LOC: M PLAIMG 08:23
PROVIDERS: ATTEND Physician Assistant
DX: R06.00 Dyspnea, unspecified (principal)

== ENCOUNTER → 2021-09-14 | Outpatient (CLI) | payer BC ==
--- NOTE | 2021-09-14 11:28 | REP ---
INDICATION: LEFT BREAST ADD VIEWS. COMPARISON: Mammograms 08/03/2021, 01/25/2020. TECHNIQUE: Spot compression views left breast. Focused left breast ultrasound. FINDINGS: A smoothly marginated oval nodule is seen posterolaterally in the left breast. This measures about 9 mm in maximum diameter. Focused left breast ultrasound performed posterolaterally. At that location there is a cyst which is oval in shape and measures 9 x 5 x 5 mm. IMPRESSION: BIRADS/ACR category 2, benign. Oval benign cyst posterolateral left breast. This mammogram was interpreted with the aid of an FDA-approved computer-aided detection system. The patient letter being requested is M 1. RECOMMENDATION: Repeat screening mammography recommended 1 year (for women over 40). <Electronically signed by Juan Carlos Salcedo > 09/14/21 1123
== END ==
LOC: M WHC 07:45
PROVIDERS: ATTEND Advanced Practice Midwife
DX: R92.8 Other abnormal and inconclusive findings on diagnostic imaging of breast (principal)

== ENCOUNTER → 2021-09-19 | Outpatient (CLI) | payer BC | LOC: M LAB 08:19 | PROVIDERS: ATTEND Physician Assistant Medical | DX: R56.9 Unspecified convulsions (principal) ==

== ENCOUNTER → 2021-09-19 | Outpatient (CLI) | payer BC ==
[2021-09-19 10:07] LABS: FREE T4 1.16 NG/DL (0.76-1.46); THYROID STIMULATING HORMONE 7.94 uIU/ML (0.358-3.740)
== END ==
LOC: M LAB 08:16
PROVIDERS: ATTEND Family Medicine
DX: E06.3 Autoimmune thyroiditis (principal)

== ENCOUNTER → 2021-09-20 | Outpatient (CLI) | payer BC ==
--- NOTE | 2021-09-20 08:32 | PFTRPT ---
Site: [facility], [address] [place] [address], [id number] ID: [id number] Name: EILEEN MARCUS Visit Date: 09/20/2021 Second ID: [id number] Referring Doctor: LEONEL Maldonado Marcus, M Reviewing Doctor: Gus Brenner MD Before School: [employer] Age: 40 : 1980 Sex: Female Race: Height: 63.00 Inches Weight: 250.00 Lbs BSA: 2.13 Order IDs: [id number] Requested Test(s): <RESP-PFT.PFT B/A> Diagnosis: R06.00 test meet the ATS standards for acceptability and repeatability. Pt was given four puffs of albuterol for post bronchodilator. Review Status: Not Reviewed Pre-Bronch Post-Bronch Pred Actual %Pred Actual %Chng SPIROMETRY FVC (L) 3.55 3.25 91 2.86 -11 FEV1 (L) 2.89 2.17 74 2.35 8 FEV1/FVC (%) 82 67 81 82 23 FEF 25% (L/sec) 5.31 2.45 46 2.75 12 FEF 50% (L/sec) 4.16 1.99 47 2.21 11 FEF 75% (L/sec) 1.63 1.40 85 0.71 -48 FEF 25-75% (L/sec) 3.01 1.92 63 1.95 1 FEF Max (L/sec) 6.79 2.51 37 2.86 13 FIVC (L) 2.58 2.98 15 FIF 50% (L/sec) 4.22 1.75 41 2.05 16 FIF Max (L/sec) 1.82 2.12 16 MVV (L/min) 100 44 44 Expiratory Time (sec) 6.38 6.18 -2 Back Extrap Vol (L) 0.04 0.06 53 Time To FEFmax (sec) 0.151 0.210 39 LUNG VOLUMES SVC (L) 3.33 3.27 98 IC (L) 2.19 2.29 104 ERV (L) 1.14 0.98 86 TGV (L) 2.71 3.25 119 RV (Pleth) (L) 1.57 2.27 144 TLC (Pleth) (L) 4.90 5.54 112 RV/TLC (Pleth) (%) 32 41 128 DIFFUSION DLCOunc (ml/min/mmHg) 23.24 19.25 82 DLCOcor (ml/min/mmHg) 23.24 19.75 85 DL/VA (ml/min/mmHg/L) 4.74 4.21 88 VA (L) 4.90 4.70 95 BHT (sec) 10.67 IVC (L) 3.20 TLC (SB) (L) 4.85 AIRWAYS RESISTANCE Raw (cmH2O/L/s) 1.86 3.78 203 Gaw (L/s/cmH2O) 1.03 0.27 25 sRaw (cmH2O*s) 4.76 12.51 262 sGaw (1/cmH2O*s) 0.20 0.08 40 BLOOD GASES Hgb (gm/dL) 12.6
== END ==
LOC: M CARPUL 07:46
PROVIDERS: ATTEND Physician Assistant
DX: R06.00 Dyspnea, unspecified (principal)

== ENCOUNTER → 2021-10-23 | Outpatient (CLI) | payer BC ==
[2021-10-23 09:16] LABS: EOS # 0.2 10^3/uL (0.0-0.5)
== END ==
LOC: M LAB 08:08
PROVIDERS: ATTEND Internal Medicine Pulmonary Disease
DX: R06.2 Wheezing (principal)

== ENCOUNTER → 2021-11-09 | Outpatient (CLI) | payer BC ==
[~2021-11-09] MED LIST changes: +ALBU8.5H; +ALBU83IN; +ARIP1TAB4; +ARNU1INH3 INH; +BIOT2500 PO; +BREO1INH3; +DUPI300I SC; +ESZO1TAB4; +FERR325T3 PO; +L-NO1TBD6 PO; +LEVO200T4 PO; +LEVOTAB10 PO; +MELO15TA28 PO; +MIRT1TAB16 PO; +MULTTAB61 PO; +PROCTO-MED; +SYNT75TA PO; +VITAD400CA PO
[2021-11-09 15:07] LABS: BASO # 0.1 10^3/uL (0.0-0.2); BASO % 0.5 % (0.0-1.0); EOS # 0.1 10^3/uL (0.0-0.5); EOS % 1.2 % (0.0-3.0); HEMATOCRIT 38.8 % (36.0-47.0); LYMPH # 2.7 10^3/uL (1.5-5.0); LYMPH % 27.2 % (24.0-44.0); MEAN CORPUSCULAR HEMOGLOBIN 30.7 pg (27.0-33.0); MEAN CORPUSCULAR HGB CONC 33.5 g/dl (32.0-36.5); MEAN CORPUSCULAR VOLUME 91.5 fl (80.0-96.0); MONO # 0.8 10^3/uL (0.0-0.8); MONO % 7.9 % (2.0-8.0); NEUTROPHILS # 6.3 10^3/uL (1.5-8.5); PLATELET COUNT, AUTOMATED 401 10^3/uL (150-450); RED BLOOD COUNT 4.24 10^6/uL (4.00-5.40)
[2021-11-09 15:38] LABS: INR 1.31; PROTHROMBIN TIME 16.7 SECONDS (12.7-14.5)
[2021-11-09 15:39] LABS: PARTIAL THROMBOPLASTIN TIME 39.3 SECONDS (25.9-37.0)
[2021-11-15 19:08] LABS: ANTI THROMBIN 3 FUNCT ACTIVITY 102 % (75-135); CARDIOLIPIN IGA ANTIBODY <9 APL U/mL (0-11); CARDIOLIPIN IGG ANTIBODY <9 GPL U/mL (0-14); CARDIOLIPIN IGM ANTIBODY <9 MPL U/mL (0-12); FACTOR VIII ACTIVITY 223 % (56-140)
== END ==
LOC: M LAB 14:15
PROVIDERS: ATTEND Physician Assistant Medical
DX: G93.2 Benign intracranial hypertension (principal)

== ENCOUNTER → 2021-11-14 | Outpatient (CLI) | payer BC | LOC: M PAIN 09:30 | PROVIDERS: ATTEND Anesthesiology | DX: M47.816 Spondylosis without myelopathy or radiculopathy, lumbar region (principal); G43.909 Migraine, unspecified, not intractable, without status migrainosus; E03.9 Hypothyroidism, unspecified; F41.9 Anxiety disorder, unspecified; F32.A Depression, unspecified; M54.2 Cervicalgia; M54.50 Low back pain, unspecified; K58.9 Irritable bowel syndrome, unspecified; N39.3 Stress incontinence (female) (male); K31.84 Gastroparesis; K21.9 Gastro-esophageal reflux disease without esophagitis; Z79.899 Other long term (current) drug therapy; Z88.2 Allergy status to sulfonamides; Z88.8 Allergy status to other drugs, medicaments and biological substances; Z88.5 Allergy status to narcotic agent; Z91.048 Other nonmedicinal substance allergy status | CPT/HCPCS: 76000; G0463 ==

== ENCOUNTER → 2021-11-19 | Outpatient (CLI) | payer BC ==
[~2021-11-19] MED LIST changes: -ALBU8.5H; -ALBU83IN; -ARIP1TAB4; -BREO1INH3; -ESZO1TAB4; -LEVO200T4 PO; +LIDOCAINE 1% MDV 20ML VIAL As Ordered ONE; -PROCTO-MED; -SYNT75TA PO
[2021-11-19 11:35] LABS: CSF TUBE# GLU TUBE 1; CSF TUBE# TP TUBE 1; GLUCOSE CSF 53 MG/DL (40-75); TOTAL PROTEIN,CSF 45 MG/DL (15-45)
[2021-11-19 11:50] LABS: APPEARANCE, CSF CLEAR (CLEAR); COLOR, CSF COLORLESS (COLORLESS); CSF TUBE# CELL CNT TUBE 3
[2021-11-19 14:57] VITALS: BP 126/77
== END ==
LOC: M IRPRO 07:42
PROVIDERS: ATTEND Physician Assistant Medical
DX: R83.5 Abnormal microbiological findings in cerebrospinal fluid (principal); R51.9 Headache, unspecified; H53.9 Unspecified visual disturbance

== ENCOUNTER → 2021-11-19 | Outpatient (CLI) | payer BC ==
[~2021-11-19] MED LIST changes: -LIDOCAINE 1% MDV 20ML VIAL As Ordered ONE
[2021-11-19 09:32] LABS: ALBUMIN 3.8 GM/DL (3.2-5.2); ALT/SGPT 23 U/L (12-78); BILIRUBIN,TOTAL 0.3 MG/DL (0.2-1.0); BLOOD UREA NITROGEN 15 MG/DL (7-18); CALCIUM LEVEL 9.7 MG/DL (8.5-10.1); CARBON DIOXIDE LEVEL 26 MEQ/L (21-32); CHLORIDE LEVEL 107 MEQ/L (98-107); CHOLESTEROL LEVEL 178 MG/DL (<200); CREATININE FOR GFR 0.89 MG/DL (0.55-1.30); GLOMERULAR FILTRATION RATE > 60.0 (>58); GLUCOSE, FASTING 78 MG/DL (70-100); HDL CHOLESTEROL 50 MG/DL (>40); LDL CHOLESTEROL 109 MG/DL (<100); NON-HDL-C 128 MG/DL; POTASSIUM SERUM 4.2 MEQ/L (3.5-5.1); SODIUM LEVEL 141 MEQ/L (136-145); TOTAL PROTEIN 7.5 GM/DL (6.4-8.2); TRIGLYCERIDES LEVEL 96 MG/DL (<150)
--- NOTE | 2021-11-20 20:12 | REP ---
PROCEDURE NAME: FLUORO GUID FOR NEEDLE PLACEMT SEDATION: None CLINICAL INFORMATION: LUMBAR PUNCTURE. PHYSICIAN: Latoya Donis PROCEDURE DESCRIPTION: The procedure was performed by ZAINA Park, under the direct supervision of Dr. Muller. The risks and benefits of the procedure were explained to the patient and an informed consent was obtained both verbally and written. Directly prior to the start of the procedure a formal time-out was completed in the procedure room. The L2-3 interspace was localized using fluoroscopic guidance. The skin was prepped and draped in a sterile fashion. Five 1 % lidocaine 10 milligrams/milliliter was used as a local anesthetic. Using fluoroscopic guidance a 22 gauge spinal needle was inserted and advanced without significant difficulty in to the cerebral spinal space at the interspinous level. Clear freely flowing cerebral spinal fluid was retrieved. The initial opening pressure measured by manometry at 13 cm of water. A total of 12 mL of cerebral spinal fluid was withdrawn gently. The needle was withdrawn. Cerebral spinal fluid was submitted to the lab for routine analysis. 0.1 minutes of fluoroscopy time was utilized for this procedure. Some fluoroscopic images are performed with last image hold technology. These images require no additional radiation. The patient tolerated the procedure well and there were no immediate complications. After the appropriate amount of monitored convalescence the patient was discharged back to the unit. ESTIMATED BLOOD LOSS: Less than 1 mL COMPLICATIONS: None CONCLUSION: Successful lumbar puncture and CSF retrieval. <Electronically signed by Latoya Donis > 11/19/21 1354 <Electronically signed by Ricardo Muller > 11/20/212007
== END ==
LOC: M LAB 07:47
PROVIDERS: ATTEND Family Medicine
DX: E06.3 Autoimmune thyroiditis (principal); E78.2 Mixed hyperlipidemia

== ENCOUNTER → 2021-12-18 | Outpatient (CLI) | payer BC ==
[~2021-12-18] MED LIST changes: +PROHANCE 279.3MG/ML 15ML VIAL As Ordered ONE; +PROHANCE 279.3MG/ML 5ML VIAL As Ordered ONE
== END ==
LOC: M RAD 13:44
PROVIDERS: ATTEND Family Medicine
DX: D48.1 Neoplasm of uncertain behavior of connective and other soft tissue (principal)
CPT/HCPCS: 71552; A9576

== ENCOUNTER → 2022-02-22 | Outpatient (CLI) | payer BC ==
[~2022-02-22] MED LIST changes: +ALBU8.5H; +ALBU83IN; +ARIP1TAB4; +BREO1INH3; +ESZO1TAB4; +LEVO200T4 PO; +PROCTO-MED; -PROHANCE 279.3MG/ML 15ML VIAL As Ordered ONE; -PROHANCE 279.3MG/ML 5ML VIAL As Ordered ONE; +SYNT75TA PO
[2022-02-22 18:39] LABS: BASO % 0.5 % (0.0-1.0); EOS # 0.1 10^3/uL (0.0-0.5); EOS % 1.2 % (0.0-3.0); HEMATOCRIT 39.9 % (36.0-47.0); HEMOGLOBIN 13.5 g/dl (12.0-15.5); LYMPH # 2.2 10^3/uL (1.5-5.0); LYMPH % 26.1 % (24.0-44.0); MEAN CORPUSCULAR HEMOGLOBIN 30.2 pg (27.0-33.0); MEAN CORPUSCULAR HGB CONC 33.8 g/dl (32.0-36.5); MEAN CORPUSCULAR VOLUME 89.3 fl (80.0-96.0); MONO # 0.6 10^3/uL (0.0-0.8); MONO % 7.5 % (2.0-8.0); NEUTROPHILS # 5.3 10^3/uL (1.5-8.5); NEUTROPHILS % 64.5 % (36.0-66.0); PLATELET COUNT, AUTOMATED 410 10^3/uL (150-450); RED BLOOD COUNT 4.47 10^6/uL (4.00-5.40); WHITE BLOOD COUNT 8.2 10^3/uL (4.0-10.0)
[2022-02-22 19:16] LABS: FREE T4 1.41 NG/DL (0.76-1.46); PERCENT SATURATION 10.1 % (13.2-45.0); THYROID STIMULATING HORMONE 2.23 uIU/ML (0.358-3.740)
[2022-02-22 19:17] LABS: TOTAL 25(OH) VITAMIN D 37.1 NG/ML (30.0-100.0)
== END ==
LOC: M LAB 17:38
PROVIDERS: ATTEND Family Medicine
DX: E06.3 Autoimmune thyroiditis (principal); D50.9 Iron deficiency anemia, unspecified

== ENCOUNTER → 2022-05-08 | Outpatient (REF) | payer BC ==
[~2022-05-08] MED LIST changes: +ALBU2.5V10; -ALBU83IN
[2022-05-08 17:40] LABS: APPEARANCE, URINE CLEAR (CLEAR); BACTERIA, URINE AUTO NEGATIVE (NEGATIVE); BILIRUBIN, URINE AUTO NEGATIVE (NEGATIVE); BLOOD, URINE BLOOD 1+ (NEGATIVE); COLOR, URINE STRAW (YELLOW); GLUCOSE, URINE (UA) AUTO NEGATIVE (NEGATIVE); KETONE, URINE AUTO NEGATIVE (NEGATIVE); LEUKOCYTE ESTERASE, URINE AUTO TRACE (NEGATIVE); MUCUS, URINE SMALL (NEGATIVE); NITRITE, URINE AUTO NEGATIVE (NEGATIVE); PROTEIN, URINE AUTO NEGATIVE (NEGATIVE); RBC, URINE AUTO 0 /HPF (0-3); SPECIFIC GRAVITY URINE AUTO 1.006 (1.002-1.035); SQUAMOUS EPITHELIAL CELL UR AU 2 /HPF (0-6); UROBILINOGEN, URINE AUTO 0.2 mg/dL (0.0-2.0); WBC, URINE AUTO 2 /HPF (0-3)
== END ==
LOC: M LAB REF 16:55
PROVIDERS: ATTEND Nurse Practitioner Adult Health
DX: N89.8 Other specified noninflammatory disorders of vagina (principal); R30.0 Dysuria

== ENCOUNTER → 2022-06-06 | Outpatient (CLI) | payer BC ==
[2022-06-06 10:26] LABS: BASO % 0.4 % (0.0-1.0); EOS # 0.2 10^3/uL (0.0-0.5); EOS % 2.3 % (0.0-3.0); HEMOGLOBIN 13.5 g/dl (12.0-15.5); LYMPH # 1.8 10^3/uL (1.5-5.0); MEAN CORPUSCULAR HEMOGLOBIN 30.1 pg (27.0-33.0); MEAN CORPUSCULAR HGB CONC 32.9 g/dl (32.0-36.5); MEAN CORPUSCULAR VOLUME 91.5 fl (80.0-96.0); MONO # 0.5 10^3/uL (0.0-0.8); MONO % 4.7 % (2.0-8.0); NEUTROPHILS # 7.3 10^3/uL (1.5-8.5); NEUTROPHILS % 74.3 % (36.0-66.0); PLATELET COUNT, AUTOMATED 416 10^3/uL (150-450); RED BLOOD COUNT 4.48 10^6/uL (4.00-5.40); WHITE BLOOD COUNT 9.9 10^3/uL (4.0-10.0)
[2022-06-06 11:21] LABS: ALBUMIN 3.7 GM/DL (3.2-5.2); ALT/SGPT 25 U/L (12-78); BILIRUBIN,TOTAL 0.4 MG/DL (0.2-1.0); BLOOD UREA NITROGEN 13 MG/DL (7-18); CALCIUM LEVEL 9.3 MG/DL (8.5-10.1); CARBON DIOXIDE LEVEL 24 MEQ/L (21-32); CHLORIDE LEVEL 110 MEQ/L (98-107); CHOLESTEROL LEVEL 154 MG/DL (<200); CHOLESTEROL RISK RATIO 3.142 (<5); CREATININE FOR GFR 0.81 MG/DL (0.55-1.30); FERRITIN 177 NG/ML (8-252); FOLATE 15.7 NG/ML; FREE T4 1.38 NG/DL (0.76-1.46); GLOMERULAR FILTRATION RATE > 60.0 (>58); GLUCOSE, FASTING 94 MG/DL (70-100); HDL CHOLESTEROL 49 MG/DL (>40); IRON (FE) 118 UG/DL (50-170); LDL CHOLESTEROL 86 MG/DL (<100); NON-HDL-C 105 MG/DL; PERCENT SATURATION 35.2 % (13.2-45.0); SODIUM LEVEL 138 MEQ/L (136-145); TOTAL 25(OH) VITAMIN D 60.6 NG/ML (30.0-100.0); TOTAL IRON BINDING CAPACITY 335 UG/DL (250-450); TOTAL PROTEIN 7.1 GM/DL (6.4-8.2); TRIGLYCERIDES LEVEL 96 MG/DL (<150); VITAMIN B12 LEVEL 368 PG/ML
== END ==
LOC: M LAB 09:20
PROVIDERS: ATTEND Nurse Practitioner Adult Health
DX: D50.9 Iron deficiency anemia, unspecified (principal); E06.3 Autoimmune thyroiditis; E78.2 Mixed hyperlipidemia; E55.9 Vitamin D deficiency, unspecified

== ENCOUNTER → 2022-09-09 | Outpatient (CLI) | payer BC ==
[2022-09-09 16:23] LABS: BASO # 0.1 10^3/uL (0.0-0.2); BASO % 0.7 % (0.0-1.0); EOS % 0.4 % (0.0-3.0); HEMATOCRIT 42.2 % (36.0-47.0); LYMPH # 1.7 10^3/uL (1.5-5.0); LYMPH % 20.4 % (24.0-44.0); MEAN CORPUSCULAR HGB CONC 33.2 g/dl (32.0-36.5); MEAN CORPUSCULAR VOLUME 93.4 fl (80.0-96.0); MONO # 0.6 10^3/uL (0.0-0.8); MONO % 6.6 % (2.0-8.0); NEUTROPHILS # 6.1 10^3/uL (1.5-8.5); NEUTROPHILS % 71.8 % (36.0-66.0); PLATELET COUNT, AUTOMATED 430 10^3/uL (150-450); RED BLOOD COUNT 4.52 10^6/uL (4.00-5.40); WHITE BLOOD COUNT 8.5 10^3/uL (4.0-10.0)
[2022-09-09 17:03] LABS: ALBUMIN 3.8 GM/DL (3.2-5.2); ALT/SGPT 23 U/L (12-78); BILIRUBIN,TOTAL 0.2 MG/DL (0.2-1.0); BLOOD UREA NITROGEN 9 MG/DL (7-18); CALCIUM LEVEL 9.6 MG/DL (8.5-10.1); CARBON DIOXIDE LEVEL 24 MEQ/L (21-32); CHLORIDE LEVEL 109 MEQ/L (98-107); CREATININE FOR GFR 0.92 MG/DL (0.55-1.30); FREE T4 1.34 NG/DL (0.76-1.46); GLOMERULAR FILTRATION RATE > 60.0 (>58); GLUCOSE, FASTING 87 MG/DL (70-100); IRON (FE) 41 UG/DL (50-170); PERCENT SATURATION 10.8 % (13.2-45.0); POTASSIUM SERUM 4.2 MEQ/L (3.5-5.1); SODIUM LEVEL 140 MEQ/L (136-145); TOTAL IRON BINDING CAPACITY 378 UG/DL (250-450); TOTAL PROTEIN 7.6 GM/DL (6.4-8.2)
== END ==
LOC: M LAB 15:40
PROVIDERS: ATTEND Nurse Practitioner Adult Health
DX: E06.3 Autoimmune thyroiditis (principal)

== ENCOUNTER → 2022-10-08 | Outpatient (REF) ==
[2022-10-08 14:01] LABS: RSV AMPLIFICATION NEGATIVE (NEGATIVE)
== END ==
LOC: M LABSMTC 09:40
PROVIDERS: ATTEND Family Medicine
DX: Z20.822 Contact with and (suspected) exposure to COVID-19 (principal)

== ENCOUNTER → 2022-11-20 | Outpatient (REF) | payer BC | LOC: M LAB REF 10:55 | PROVIDERS: ATTEND Physician Assistant | DX: B34.9 Viral infection, unspecified (principal) ==

== ENCOUNTER → 2022-12-09 | Outpatient (CLI) | payer BC ==
[2022-12-09 18:15] LABS: BASO % 0.4 % (0.0-1.0); EOS # 0.1 10^3/uL (0.0-0.5); EOS % 0.6 % (0.0-3.0); HEMATOCRIT 40.2 % (36.0-47.0); HEMOGLOBIN 13.5 g/dl (12.0-15.5); LYMPH % 22.4 % (24.0-44.0); MEAN CORPUSCULAR HEMOGLOBIN 30.9 pg (27.0-33.0); MEAN CORPUSCULAR HGB CONC 33.6 g/dl (32.0-36.5); MONO # 0.6 10^3/uL (0.0-0.8); MONO % 6.2 % (2.0-8.0); NEUTROPHILS # 6.3 10^3/uL (1.5-8.5); NEUTROPHILS % 70.1 % (36.0-66.0); PLATELET COUNT, AUTOMATED 472 10^3/uL (150-450); RED BLOOD COUNT 4.37 10^6/uL (4.00-5.40)
[2022-12-09 18:19] LABS: URINE PREG TEST NEGATIVE (NEGATIVE)
[2022-12-09 18:35] LABS: BLOOD UREA NITROGEN 10 MG/DL (9-23); CALCIUM LEVEL 9.6 MG/DL (8.5-10.1); CARBON DIOXIDE LEVEL 22 MMOL/L (20-31); CHLORIDE LEVEL 109 MMOL/L (98-107); CREATININE FOR GFR 0.87 MG/DL (0.55-1.30); GLOMERULAR FILTRATION RATE > 60.0 (>58); GLUCOSE, FASTING 105 MG/DL (60-100); POTASSIUM SERUM 4.4 MMOL/L (3.5-5.1); SODIUM LEVEL 142 MMOL/L (136-145)
== END ==
LOC: M LAB 17:38
PROVIDERS: ATTEND Neurological Surgery
DX: I67.1 Cerebral aneurysm, nonruptured (principal)

== ENCOUNTER → 2022-12-15 | Outpatient (CLI) | payer BC | LOC: M LABSMTC 09:43 | PROVIDERS: ATTEND Neurological Surgery | DX: Z01.818 Encounter for other preprocedural examination (principal); I67.1 Cerebral aneurysm, nonruptured ==

== ENCOUNTER → 2022-12-19 | Outpatient (REF) | payer BC | LOC: M PLALAB 10:34 | PROVIDERS: ATTEND Advanced Practice Midwife | DX: Z12.4 Encounter for screening for malignant neoplasm of cervix (principal) | CPT/HCPCS: 87624; G0123 ==

== ENCOUNTER → 2022-12-19 | Outpatient (CLI) | payer BC | LOC: M WHC 08:56 | PROVIDERS: ATTEND Advanced Practice Midwife | DX: R92.2 Inconclusive mammogram (principal) ==

== ENCOUNTER → 2022-12-24 | Outpatient (CLI) | payer BC ==
[2022-12-24 09:51] LABS: BASO # 0.1 10^3/uL (0.0-0.2); BASO % 0.7 % (0.0-1.0); EOS # 0.2 10^3/uL (0.0-0.5); EOS % 2.2 % (0.0-3.0); HEMATOCRIT 41.2 % (36.0-47.0); HEMOGLOBIN 13.4 g/dl (12.0-15.5); LYMPH # 2.7 10^3/uL (1.5-5.0); LYMPH % 26.8 % (24.0-44.0); MEAN CORPUSCULAR HEMOGLOBIN 30.1 pg (27.0-33.0); MEAN CORPUSCULAR HGB CONC 32.5 g/dl (32.0-36.5); MEAN CORPUSCULAR VOLUME 92.6 fl (80.0-96.0); MONO # 0.5 10^3/uL (0.0-0.8); MONO % 5.4 % (2.0-8.0); NEUTROPHILS # 6.4 10^3/uL (1.5-8.5); NEUTROPHILS % 64.5 % (36.0-66.0); PLATELET COUNT, AUTOMATED 393 10^3/uL (150-450); RED BLOOD COUNT 4.45 10^6/uL (4.00-5.40)
[2022-12-24 10:16] LABS: ALBUMIN 3.5 G/DL (3.2-5.2); ALKALINE PHOSPHATASE 75 U/L (46-116); ALT/SGPT 38 U/L (7.0-40); AST/SGOT 17 U/L (<34); BILIRUBIN,TOTAL 0.5 MG/DL (0.3-1.2); BLOOD UREA NITROGEN 12 MG/DL (9-23); CALCIUM LEVEL 9.2 MG/DL (8.5-10.1); CARBON DIOXIDE LEVEL 24 MMOL/L (20-31); CHLORIDE LEVEL 108 MMOL/L (98-107); CREATININE FOR GFR 0.93 MG/DL (0.55-1.30); GLOMERULAR FILTRATION RATE > 60.0 (>58); GLUCOSE, FASTING 89 MG/DL (60-100); IRON (FE) 170 UG/DL (50-170); PERCENT SATURATION 51.8 % (13.2-45.0); POTASSIUM SERUM 3.9 MMOL/L (3.5-5.1); SODIUM LEVEL 140 MMOL/L (136-145); TOTAL 25(OH) VITAMIN D 75.8 NG/ML (20.0-100.0); TOTAL IRON BINDING CAPACITY 328 UG/DL (250-425); TOTAL PROTEIN 6.6 G/DL (5.7-8.2)
[2022-12-24 10:17] LABS: FREE T4 1.22 NG/DL (0.89-1.76)
== END ==
LOC: M LAB 09:27
PROVIDERS: ATTEND Nurse Practitioner Adult Health
DX: E06.3 Autoimmune thyroiditis (principal); D50.9 Iron deficiency anemia, unspecified; E55.9 Vitamin D deficiency, unspecified

== ENCOUNTER → 2022-12-28 | Outpatient (REF) | payer BC | LOC: M LAB REF 09:55 | PROVIDERS: ATTEND Family Medicine | DX: R19.7 Diarrhea, unspecified (principal) ==

== ENCOUNTER → 2023-01-01 | Outpatient (CLI) | payer BC | LOC: M WHC 08:39 | PROVIDERS: ATTEND Advanced Practice Midwife | DX: Z12.31 Encounter for screening mammogram for malignant neoplasm of breast (principal) | CPT/HCPCS: 77066; G0279 ==

== ENCOUNTER → 2023-01-08 | Outpatient (REF) | LOC: M LABSMTC 09:09 | PROVIDERS: ATTEND Family Medicine | DX: Z11.52 Encounter for screening for COVID-19 (principal) ==

== ENCOUNTER → 2023-03-20 | Outpatient (CLI) | payer BC ==
[2023-03-20 09:52] LABS: BASO # 0.1 10^3/uL (0.0-0.2); BASO % 0.7 % (0.0-1.0); EOS # 0.2 10^3/uL (0.0-0.5); EOS % 2.1 % (0.0-3.0); HEMOGLOBIN 13.3 g/dl (12.0-15.5); LYMPH # 2.3 10^3/uL (1.5-5.0); LYMPH % 22.4 % (24.0-44.0); MEAN CORPUSCULAR HEMOGLOBIN 30.9 pg (27.0-33.0); MEAN CORPUSCULAR HGB CONC 32.4 g/dl (32.0-36.5); MEAN CORPUSCULAR VOLUME 95.3 fl (80.0-96.0); MONO # 0.6 10^3/uL (0.0-0.8); MONO % 5.7 % (2.0-8.0); NEUTROPHILS # 7.1 10^3/uL (1.5-8.5); NEUTROPHILS % 68.8 % (36.0-66.0); PLATELET COUNT, AUTOMATED 400 10^3/uL (150-450); WHITE BLOOD COUNT 10.3 10^3/uL (4.0-10.0)
[2023-03-20 10:30] LABS: HEMOGLOBIN A1c 5.4 % (4.0-6.0)
[2023-03-20 10:31] LABS: IRON (FE) 85 UG/DL (50-170); PERCENT SATURATION 27.7 % (13.2-45.0); TOTAL IRON BINDING CAPACITY 307 UG/DL (250-425)
[2023-03-20 10:32] LABS: ALBUMIN 3.5 G/DL (3.2-5.2); ALKALINE PHOSPHATASE 60 U/L (46-116); ALT/SGPT 14 U/L (7.0-40); AST/SGOT 14 U/L (<34); BILIRUBIN,TOTAL 0.5 MG/DL (0.3-1.2); BLOOD UREA NITROGEN 14 MG/DL (9-23); CALCIUM LEVEL 9.3 MG/DL (8.5-10.1); CARBON DIOXIDE LEVEL 24 MMOL/L (20-31); CHLORIDE LEVEL 107 MMOL/L (98-107); CHOLESTEROL LEVEL 146 MG/DL (<200); CREATININE FOR GFR 0.94 MG/DL (0.55-1.30); GLOMERULAR FILTRATION RATE > 60.0 (>58); GLUCOSE, FASTING 87 MG/DL (60-100); HDL CHOLESTEROL 44.2 MG/DL (>40); LDL CHOLESTEROL 79.4 MG/DL (<100); NON-HDL-C 101.8 MG/DL; POTASSIUM SERUM 3.9 MMOL/L (3.5-5.1); SODIUM LEVEL 137 MMOL/L (136-145); TOTAL PROTEIN 6.9 G/DL (5.7-8.2); TRIGLYCERIDES LEVEL 112 MG/DL (<150)
[2023-03-20 10:33] LABS: FERRITIN 257.5 NG/ML (7.3-270.7)
[2023-03-20 10:34] LABS: FREE T4 1.34 NG/DL (0.89-1.76)
== END ==
LOC: M LAB 09:00
PROVIDERS: ATTEND Family Medicine
DX: E78.2 Mixed hyperlipidemia (principal); D50.9 Iron deficiency anemia, unspecified; E06.3 Autoimmune thyroiditis

== ENCOUNTER → 2023-05-18 | Outpatient (CLI) | payer BC ==
[~2023-05-18] MED LIST changes: -HYDR200T3 PO; +HYDR200T46 PO
[2023-05-18 14:11] LABS: IMMUNOGLOBULIN A 136.7 MG/DL (40-350)
[2023-05-18 14:14] LABS: FREE T4 1.33 NG/DL (0.89-1.76); THYROID STIMULATING HORMONE 0.741 uIU/ML (0.55-4.78)
[2023-05-26 23:11] LABS: CALPROTECTIN STOOL 163 ug/g (0-120); PANCREATIC ELASTASE STOOL 498 (>200)
== END ==
LOC: M LAB 13:09
PROVIDERS: ATTEND Family Medicine
DX: R19.7 Diarrhea, unspecified (principal)

== ENCOUNTER 2023-07-11 11:38 | Day surgery (SDC) | payer BC ==
[~2023-07-11] VITALS: Ht 160 cm; Wt 106.7 kg
[~2023-07-11 11:38] MED LIST changes: +BRIN10TA4 PO; +BUDE10.7; +ESZO1TAB6 PO; +FERR1TAB8 PO; -GABA-283 PO; +GABA-284 PO; +L-NO1TBD4 PO; +LEVE10003 PO; +MONT10TA97 PO; +NS 1,000 ML IV ONE; +ONDA-83; +PANT40TA29 PO; +ROSU20TA61 PO; +VRAY3CAP PO; +fentaNYL 100 MCG/2 ML INJECTION As Ordered ONE; +propofoL 200 MG/20 ML VIAL As Ordered ONE
[2023-07-11] MEDS ORDERED: IMIT50TA PO (12:18)
[2023-07-11] MEDS ORDERED: LUNE3TAB36 PO (12:18)
[2023-07-11] MEDS ORDERED: XANA0.5T3 PO (12:18)
[2023-07-11] MEDS ORDERED: HYDR-643 PO (12:18)
[2023-07-11] MEDS ORDERED: MONT10TA97 PO (12:18)
[2023-07-11] MEDS ORDERED: LIDOCAINE 2% 100MG/5ML SDV (FOR ANES.) As Ordered ONE (13:56)
[2023-07-11] MEDS ORDERED: propofoL 200 MG/20 ML VIAL As Ordered ONE ×2 (14:04→14:15)
[2023-07-11 15:00] VITALS: BP 113/68; O2SAT 100
== END 2023-07-11 15:14 | disposition home or self-care (01) ==
LOC: M OPP 11:38
PROVIDERS: ATTEND Internal Medicine Gastroenterology
DX: K63.5 Polyp of colon (principal); K63.89 Other specified diseases of intestine; K29.50 Unspecified chronic gastritis without bleeding; K44.9 Diaphragmatic hernia without obstruction or gangrene; Z79.02 Long term (current) use of antithrombotics/antiplatelets; Z79.1 Long term (current) use of non-steroidal anti-inflammatories (NSAID); Z79.51 Long term (current) use of inhaled steroids; Z79.890 Hormone replacement therapy; Z79.899 Other long term (current) drug therapy; Z88.2 Allergy status to sulfonamides; Z88.8 Allergy status to other drugs, medicaments and biological substances

== ENCOUNTER → 2023-10-16 | Outpatient (CLI) | payer BC ==
[~2023-10-16] MED LIST changes: +IMIT50TA PO; +LUNE3TAB50 PO; -NS 1,000 ML IV ONE; +XANA0.5T3 PO; -fentaNYL 100 MCG/2 ML INJECTION As Ordered ONE; -propofoL 200 MG/20 ML VIAL As Ordered ONE
[2023-10-16 16:04] LABS: BASO # 0.1 10^3/uL (0.0-0.2); BASO % 0.6 % (0.0-1.0); EOS # 0.2 10^3/uL (0.0-0.5); EOS % 1.6 % (0.0-3.0); HEMATOCRIT 41.6 % (36.0-47.0); LYMPH # 3.2 10^3/uL (1.5-5.0); LYMPH % 26.1 % (24.0-44.0); MEAN CORPUSCULAR HEMOGLOBIN 30.8 pg (27.0-33.0); MEAN CORPUSCULAR HGB CONC 33.7 g/dl (32.0-36.5); MEAN CORPUSCULAR VOLUME 91.6 fl (80.0-96.0); MONO # 0.7 10^3/uL (0.0-0.8); NEUTROPHILS % 65.5 % (36.0-66.0); PLATELET COUNT, AUTOMATED 479 10^3/uL (150-450); RED BLOOD COUNT 4.54 10^6/uL (4.00-5.40); WHITE BLOOD COUNT 12.1 10^3/uL (4.0-10.0)
[2023-10-16 16:30] LABS: ALBUMIN 3.5 G/DL (3.2-5.2); ALKALINE PHOSPHATASE 69 U/L (46-116); ALT/SGPT 27 U/L (7.0-40); AST/SGOT 15 U/L (<34); BILIRUBIN,TOTAL 0.3 MG/DL (0.3-1.2); BLOOD UREA NITROGEN 10 MG/DL (9-23); CALCIUM LEVEL 9.3 MG/DL (8.5-10.1); CARBON DIOXIDE LEVEL 24 MMOL/L (20-31); CHLORIDE LEVEL 109 MMOL/L (98-107); CREATININE FOR GFR 0.77 MG/DL (0.55-1.30); GLOMERULAR FILTRATION RATE > 60.0 (>58); GLUCOSE, FASTING 71 MG/DL (60-100); POTASSIUM SERUM 4.2 MMOL/L (3.5-5.1); SODIUM LEVEL 141 MMOL/L (136-145)
[2023-10-16 16:31] LABS: THYROID STIMULATING HORMONE 0.061 uIU/ML (0.55-4.78)
[2023-10-16 16:32] LABS: FOLATE > 24.00 NG/ML (>5.4); VITAMIN B12 LEVEL 382 PG/ML (211-911)
== END ==
LOC: M LAB 13:37
PROVIDERS: ATTEND Psychiatry & Neurology Neurology
DX: G40.909 Epilepsy, unspecified, not intractable, without status epilepticus (principal); R51.9 Headache, unspecified; R20.0 Anesthesia of skin

== ENCOUNTER → 2023-10-25 | Outpatient (CLI) | payer BC ==
[2023-10-25 08:51] LABS: ALBUMIN 3.6 G/DL (3.2-5.2); ALKALINE PHOSPHATASE 72 U/L (46-116); ALT/SGPT 21 U/L (7.0-40); AST/SGOT 15 U/L (<34); BILIRUBIN,TOTAL 0.3 MG/DL (0.3-1.2); BLOOD UREA NITROGEN 10 MG/DL (9-23); CALCIUM LEVEL 9.4 MG/DL (8.5-10.1); CARBON DIOXIDE LEVEL 25 MMOL/L (20-31); CHLORIDE LEVEL 106 MMOL/L (98-107); CREATININE FOR GFR 0.93 MG/DL (0.55-1.30); GLOMERULAR FILTRATION RATE > 60.0 (>58); GLUCOSE, FASTING 77 MG/DL (60-100); SODIUM LEVEL 142 MMOL/L (136-145); TOTAL PROTEIN 7.2 G/DL (5.7-8.2)
[2023-10-25 08:52] LABS: THYROID STIMULATING HORMONE 0.086 uIU/ML (0.55-4.78)
[2023-10-25 08:53] LABS: FOLATE > 24.0 NG/ML (>5.4); VITAMIN B12 LEVEL 439 PG/ML (211-911)
== END ==
LOC: M LAB 06:00
PROVIDERS: ATTEND Psychiatry & Neurology Neurology
DX: R51.9 Headache, unspecified (principal)

== ENCOUNTER → 2023-12-12 | Outpatient (CLI) | payer BC ==
[2023-12-12 10:05] LABS: BASO # 0.1 10^3/uL (0.0-0.2); BASO % 1.1 % (0.0-1.0); EOS # 0.3 10^3/uL (0.0-0.5); EOS % 4.4 % (0.0-3.0); HEMATOCRIT 41.7 % (36.0-47.0); HEMOGLOBIN 13.8 g/dl (12.0-15.5); LYMPH # 2.4 10^3/uL (1.5-5.0); LYMPH % 42.4 % (24.0-44.0); MEAN CORPUSCULAR HEMOGLOBIN 30.9 pg (27.0-33.0); MEAN CORPUSCULAR HGB CONC 33.1 g/dl (32.0-36.5); MEAN CORPUSCULAR VOLUME 93.3 fl (80.0-96.0); MONO # 0.7 10^3/uL (0.0-0.8); MONO % 12.1 % (2.0-8.0); NEUTROPHILS # 2.3 10^3/uL (1.5-8.5); NEUTROPHILS % 39.8 % (36.0-66.0); PLATELET COUNT, AUTOMATED 481 10^3/uL (150-450); RED BLOOD COUNT 4.47 10^6/uL (4.00-5.40); WHITE BLOOD COUNT 5.6 10^3/uL (4.0-10.0)
[2023-12-12 10:31] LABS: THYROID STIMULATING HORMONE 0.158 uIU/ML (0.55-4.78); TOTAL 25(OH) VITAMIN D 86.8 NG/ML (20.0-100.0)
[2023-12-12 10:33] LABS: ALBUMIN 3.2 G/DL (3.2-5.2); ALKALINE PHOSPHATASE 61 U/L (46-116); ALT/SGPT 24 U/L (7.0-40); AST/SGOT 12 U/L (<34); BILIRUBIN,TOTAL 0.3 MG/DL (0.3-1.2); BLOOD UREA NITROGEN 10 MG/DL (9-23); CARBON DIOXIDE LEVEL 23 MMOL/L (20-31); CHLORIDE LEVEL 110 MMOL/L (98-107); CHOLESTEROL LEVEL 159 MG/DL (<200); CHOLESTEROL RISK RATIO 3.61 (<5); CREATININE FOR GFR 0.83 MG/DL (0.55-1.30); FOLATE > 24.0 NG/ML (>5.4); FREE T4 1.34 NG/DL (0.89-1.76); GLOMERULAR FILTRATION RATE > 60.0 (>58); GLUCOSE, FASTING 86 MG/DL (60-100); IRON (FE) 94 UG/DL (50-170); LDL CHOLESTEROL 100.2 MG/DL (<100); POTASSIUM SERUM 4.5 MMOL/L (3.5-5.1); SODIUM LEVEL 140 MMOL/L (136-145); TOTAL IRON BINDING CAPACITY 303 UG/DL (250-425); TOTAL PROTEIN 6.5 G/DL (5.7-8.2); TRIGLYCERIDES LEVEL 74 MG/DL (<150); VITAMIN B12 LEVEL 426 PG/ML (211-911)
== END ==
LOC: M LAB 09:07
PROVIDERS: ATTEND Nurse Practitioner Adult Health
DX: E06.3 Autoimmune thyroiditis (principal); E78.2 Mixed hyperlipidemia; J45.40 Moderate persistent asthma, uncomplicated; D50.9 Iron deficiency anemia, unspecified; E55.9 Vitamin D deficiency, unspecified

== ENCOUNTER 2023-12-18 08:58 | Emergency (ER) | payer BC ==
[~2023-12-18] VITALS: Ht 160 cm; Wt 109.6 kg
[2023-12-18 08:58] VITALS: TEMP 99
[2023-12-18] MEDS ORDERED: LEVO25TA5 PO (09:12)
[2023-12-18] MEDS ORDERED: LEVO200T4 PO (09:12)
[2023-12-18 09:58] LABS: BASO # 0.1 10^3/uL (0.0-0.2); BASO % 0.5 % (0.0-1.0); EOS # 0.2 10^3/uL (0.0-0.5); EOS % 1.9 % (0.0-3.0); HEMATOCRIT 42.4 % (36.0-47.0); HEMOGLOBIN 14.5 g/dl (12.0-15.5); LYMPH # 2.8 10^3/uL (1.5-5.0); LYMPH % 25.4 % (24.0-44.0); MEAN CORPUSCULAR HGB CONC 34.2 g/dl (32.0-36.5); MEAN CORPUSCULAR VOLUME 90.6 fl (80.0-96.0); MONO # 0.8 10^3/uL (0.0-0.8); MONO % 6.9 % (2.0-8.0); NEUTROPHILS # 7.1 10^3/uL (1.5-8.5); NEUTROPHILS % 65.1 % (36.0-66.0); PLATELET COUNT, AUTOMATED 438 10^3/uL (150-450); RED BLOOD COUNT 4.68 10^6/uL (4.00-5.40); WHITE BLOOD COUNT 10.9 10^3/uL (4.0-10.0)
[2023-12-18] MEDS ORDERED: diphenhydrAMINE 50MG/ML VIAL IV ONE (10:05)
[2023-12-18] MEDS ORDERED: KETOROLAC 30 MG/ML 1ML VIAL IV ONE (10:05)
[2023-12-18] MEDS ORDERED: ACETAMINOPHEN 500 MG TAB PO ONE (10:05)
[2023-12-18 10:18] LABS: PROTHROMBIN TIME 12.9 SECONDS (12.5-14.5)
[2023-12-18 10:19] LABS: PARTIAL THROMBOPLASTIN TIME 24.7 SECONDS (24.8-34.2)
[2023-12-18 10:24] LABS: LIPASE 50 U/L (12-53)
[2023-12-18 10:26] LABS: ALBUMIN 3.7 G/DL (3.2-5.2); ALKALINE PHOSPHATASE 63 U/L (46-116); ALT/SGPT 26 U/L (7.0-40); AST/SGOT 14 U/L (<34); BILIRUBIN,DIRECT < 0.1 MG/DL (<0.4); BILIRUBIN,TOTAL 0.2 MG/DL (0.3-1.2); BLOOD UREA NITROGEN 12 MG/DL (9-23); CALCIUM LEVEL 9.5 MG/DL (8.5-10.1); CARBON DIOXIDE LEVEL 19 MMOL/L (20-31); CHLORIDE LEVEL 110 MMOL/L (98-107); CPK CREATINE PHOSPHOKINASE 61 U/L (34-145); GLOMERULAR FILTRATION RATE > 60.0 (>58); GLUCOSE, FASTING 108 MG/DL (60-100); POTASSIUM SERUM 3.9 MMOL/L (3.5-5.1); SODIUM LEVEL 138 MMOL/L (136-145)
[2023-12-18 10:27] LABS: CK-MB VALUE MASS < 1.0 NG/ML (<3.6); HCG, SERUM QUALITATIVE NEGATIVE (NEGATIVE); MB/CK RELATIVE INDEX 1.63 (< OR =4)
[2023-12-18] MEDS ORDERED: MORPHINE 4 MG/ML 1ML VIAL IV ONE (10:30)
[2023-12-18] MEDS ORDERED: ONDANSETRON 4MG 2ML VIAL IV ONE (10:30)
[2023-12-18 10:31] LABS: FREE T4 1.45 NG/DL (0.89-1.76)
[2023-12-18 10:32] LABS: THYROID STIMULATING HORMONE 0.257 uIU/ML (0.55-4.78)
[2023-12-18 12:00] VITALS: BP 119/78
[2023-12-18 12:15] VITALS: O2SAT 96
== END 2023-12-18 12:29 | disposition home or self-care (01) ==
LOC: M ED 08:58
DX: R51.9 Headache, unspecified (principal); R94.6 Abnormal results of thyroid function studies; R03.0 Elevated blood-pressure reading, without diagnosis of hypertension; E03.9 Hypothyroidism, unspecified; J45.909 Unspecified asthma, uncomplicated; K21.9 Gastro-esophageal reflux disease without esophagitis; F41.9 Anxiety disorder, unspecified; Z88.2 Allergy status to sulfonamides; Z88.8 Allergy status to other drugs, medicaments and biological substances; Z79.890 Hormone replacement therapy; Z79.83 Long term (current) use of bisphosphonates; Z79.899 Other long term (current) drug therapy
CPT/HCPCS: 70450; 71046; 80048; 80076; 80180; 82550; 82553; 83690; 84439; 84443; 84484; 84703; 85025; 85610; 85730; 93005; 93041; 96374; 96375; 99284; J1200; J1885; J2405

== ENCOUNTER → 2024-01-31 | Outpatient (CLI) | payer BC ==
[~2024-01-31] MED LIST changes: +LEVO25TA5 PO
[2024-01-31 04:40] LABS: FREE T4 1.31 NG/DL (0.89-1.76); THYROID STIMULATING HORMONE 1.123 uIU/ML (0.55-4.78)
== END ==
LOC: M LAB 00:48
PROVIDERS: ATTEND Nurse Practitioner Adult Health
DX: E06.3 Autoimmune thyroiditis (principal)

== ENCOUNTER → 2024-02-01 | Outpatient (REF) | payer BC | LOC: M LAB REF 18:27 | PROVIDERS: ATTEND Physician Assistant Medical | DX: B34.9 Viral infection, unspecified (principal) ==

== ENCOUNTER → 2024-02-06 | Outpatient (CLI) | payer BC | LOC: M WHC 09:26 | PROVIDERS: ATTEND Advanced Practice Midwife | DX: Z12.31 Encounter for screening mammogram for malignant neoplasm of breast (principal) ==

== ENCOUNTER → 2024-04-23 | Outpatient (REF) | payer BC ==
[~2024-04-23] MED LIST changes: +AMOX875T2 PO; +FLON1SPR NARES; +ROSU5TAB40; -ROSU5TAB5
== END ==
LOC: M LAB REF 21:12
PROVIDERS: ATTEND Emergency Medicine
DX: J06.9 Acute upper respiratory infection, unspecified (principal)

== ENCOUNTER → 2024-06-05 | Outpatient (CLI) | payer BC | LOC: M LAB 02:08 | PROVIDERS: ATTEND Nurse Practitioner Adult Health | DX: E06.3 Autoimmune thyroiditis (principal); Z53.9 Procedure and treatment not carried out, unspecified reason ==

== ENCOUNTER → 2024-06-05 | Outpatient (REF) | payer BC | LOC: M LAB REF 06:48 | PROVIDERS: ATTEND Nurse Practitioner Adult Health | DX: E06.3 Autoimmune thyroiditis (principal); E78.2 Mixed hyperlipidemia; D50.9 Iron deficiency anemia, unspecified; E55.9 Vitamin D deficiency, unspecified; R25.2 Cramp and spasm ==

== ENCOUNTER → 2024-06-10 | Outpatient (CLI) | payer BC ==
[2024-06-10 10:47] LABS: BASO # 0.1 10^3/uL (0.0-0.2); BASO % 0.6 % (0.0-1.0); EOS # 0.4 10^3/uL (0.0-0.5); EOS % 4.1 % (0.0-3.0); HEMATOCRIT 41.1 % (36.0-47.0); HEMOGLOBIN 14.1 g/dl (12.0-15.5); LYMPH % 31.5 % (24.0-44.0); MEAN CORPUSCULAR HEMOGLOBIN 31.3 pg (27.0-33.0); MEAN CORPUSCULAR HGB CONC 34.3 g/dl (32.0-36.5); MEAN CORPUSCULAR VOLUME 91.3 fl (80.0-96.0); MONO # 0.7 10^3/uL (0.0-0.8); MONO % 7.3 % (2.0-8.0); NEUTROPHILS # 5.3 10^3/uL (1.5-8.5); NEUTROPHILS % 56.1 % (36.0-66.0); PLATELET COUNT, AUTOMATED 430 10^3/uL (150-450); WHITE BLOOD COUNT 9.4 10^3/uL (4.0-10.0)
[2024-06-10 10:53] LABS: ERYTHROCYTE SEDIMENTATION RATE 44 mm/hr (0-20)
== END ==
LOC: M LAB 09:38
PROVIDERS: ATTEND Nurse Practitioner Adult Health
DX: E06.3 Autoimmune thyroiditis (principal); E78.2 Mixed hyperlipidemia; D50.9 Iron deficiency anemia, unspecified; E55.9 Vitamin D deficiency, unspecified; R25.2 Cramp and spasm

== ENCOUNTER → 2024-06-11 | Outpatient (REF) | payer BC ==
[2024-06-11 21:41] LABS: TOTAL IRON BINDING CAPACITY 333 UG/DL (250-425)
[2024-06-11 21:42] LABS: ALKALINE PHOSPHATASE 74 U/L (46-116); ALT/SGPT 22 U/L (7.0-40); AST/SGOT 12 U/L (<34); BILIRUBIN,TOTAL 0.2 MG/DL (0.3-1.2); BLOOD UREA NITROGEN 10 MG/DL (9-23); CALCIUM LEVEL 9.8 MG/DL (8.5-10.1); CARBON DIOXIDE LEVEL 22 MMOL/L (20-31); CHLORIDE LEVEL 109 MMOL/L (98-107); CHOLESTEROL LEVEL 195 MG/DL (<200); CHOLESTEROL RISK RATIO 3.83 (<5); CREATININE FOR GFR 0.72 MG/DL (0.55-1.30); GLOMERULAR FILTRATION RATE > 60.0 (>58); GLUCOSE, FASTING 84 MG/DL (60-100); HDL CHOLESTEROL 50.8 MG/DL (>40); IRON (FE) 88 UG/DL (50-170); MAGNESIUM LEVEL 2.2 MG/DL (1.8-2.4); NON-HDL-C 144.2 MG/DL; PERCENT SATURATION 26.4 % (13.2-45.0); PHOSPHORUS LEVEL 3.1 MG/DL (2.5-4.9); POTASSIUM SERUM 4.1 MMOL/L (3.5-5.1); SODIUM LEVEL 140 MMOL/L (136-145); TOTAL PROTEIN 7.5 G/DL (5.7-8.2); TRIGLYCERIDES LEVEL 146 MG/DL (<150)
[2024-06-11 21:43] LABS: THYROID STIMULATING HORMONE 0.509 uIU/ML (0.55-4.78); TOTAL 25(OH) VITAMIN D 76.6 NG/ML (20.0-100.0)
[2024-06-11 21:44] LABS: FREE T4 1.46 NG/DL (0.89-1.76); VITAMIN B12 LEVEL 417 PG/ML (211-911)
[2024-06-11 21:47] LABS: FOLATE > 24.0 NG/ML (>5.4)
== END ==
LOC: M LAB REF 15:35
PROVIDERS: ATTEND Nurse Practitioner Adult Health
DX: E06.3 Autoimmune thyroiditis (principal); E78.2 Mixed hyperlipidemia; R25.2 Cramp and spasm

== ENCOUNTER → 2024-07-15 | Outpatient (CLI) | payer BC | LOC: M PLAIMG 12:21 | PROVIDERS: ATTEND Nurse Practitioner Adult Health | DX: R10.9 Unspecified abdominal pain (principal); J98.11 Atelectasis; K57.30 Diverticulosis of large intestine without perforation or abscess without bleeding ==

== ENCOUNTER → 2024-07-15 | Outpatient (CLI) | payer BC ==
[2024-07-15 12:27] LABS: BASO # 0.1 10^3/uL (0.0-0.2); BASO % 0.7 % (0.0-1.0); EOS # 0.2 10^3/uL (0.0-0.5); EOS % 2.5 % (0.0-3.0); HEMOGLOBIN 13.9 g/dl (12.0-15.5); LYMPH # 2.1 10^3/uL (1.5-5.0); LYMPH % 23.9 % (24.0-44.0); MEAN CORPUSCULAR HEMOGLOBIN 31.5 pg (27.0-33.0); MEAN CORPUSCULAR HGB CONC 33.9 g/dl (32.0-36.5); MONO # 0.6 10^3/uL (0.0-0.8); MONO % 6.5 % (2.0-8.0); NEUTROPHILS # 5.8 10^3/uL (1.5-8.5); NEUTROPHILS % 66.1 % (36.0-66.0); PLATELET COUNT, AUTOMATED 459 10^3/uL (150-450); RED BLOOD COUNT 4.41 10^6/uL (4.00-5.40); WHITE BLOOD COUNT 8.8 10^3/uL (4.0-10.0)
[2024-07-15 12:32] LABS: ERYTHROCYTE SEDIMENTATION RATE 55 mm/hr (0-20)
[2024-07-15 13:01] LABS: C REACTIVE PROTEIN QUANTITATIV 1.4 MG/DL (<1.0)
[2024-07-15 13:05] LABS: FREE T4 1.76 NG/DL (0.89-1.76); THYROID STIMULATING HORMONE 0.041 uIU/ML (0.55-4.78)
== END ==
LOC: M LAB 11:21
PROVIDERS: ATTEND Nurse Practitioner Adult Health
DX: R10.9 Unspecified abdominal pain (principal)

== ENCOUNTER → 2024-08-28 | Outpatient (REF) | payer BC ==
[~2024-08-28] MED LIST changes: +GABA-1490 PO; -GABA600T4 PO
[2024-08-28 01:22] LABS: FREE T4 1.48 NG/DL (0.89-1.76); THYROID STIMULATING HORMONE 0.478 uIU/ML (0.55-4.78)
== END ==
LOC: M LAB 00:21
PROVIDERS: ATTEND Nurse Practitioner Adult Health
DX: E06.3 Autoimmune thyroiditis (principal)

== ENCOUNTER → 2024-09-04 | Outpatient (CLI) | payer BC ==
[~2024-09-04] MED LIST changes: -ROSU20TA61 PO; +ROSU20TA86 PO
[2024-09-04 12:19] LABS: FREE T4 1.51 NG/DL (0.89-1.76)
[2024-09-04 12:20] LABS: THYROID STIMULATING HORMONE 0.331 uIU/ML (0.55-4.78); THYROXINE (T4) 14.5 UG/DL (4.5-10.9)
[2024-09-04 12:25] LABS: TOTAL T3 161.7 NG/DL (60.0-181.0)
[2024-09-04 12:26] LABS: FREE T3 3.5 PG/ML (2.3-4.2)
== END ==
LOC: M LAB 11:25
PROVIDERS: ATTEND Nurse Practitioner Adult Health
DX: E06.3 Autoimmune thyroiditis (principal)

== ENCOUNTER → 2024-10-21 | Outpatient (CLI) | payer BC ==
[~2024-10-21] MED LIST changes: +LEVO1CAP PO; -MECAP PO; -ROSU5TAB40; +ROSU5TAB49
== END ==
LOC: M RAD 11:22
PROVIDERS: ATTEND Nurse Practitioner Adult Health
DX: M54.2 Cervicalgia (principal)

== ENCOUNTER → 2024-11-03 | Outpatient (CLI) | payer BC ==
[2024-11-03 12:13] LABS: FREE T4 1.32 NG/DL (0.89-1.76); THYROID STIMULATING HORMONE 1.054 uIU/ML (0.55-4.78)
== END ==
LOC: M LAB 07:57
PROVIDERS: ATTEND Nurse Practitioner Family
DX: E03.9 Hypothyroidism, unspecified (principal)

== ENCOUNTER → 2024-12-20 | Outpatient (CLI) | payer BC ==
[~2024-12-20] MED LIST changes: +BRIN1TAB3; +COLA100C5 PO; +DICY20TA20 PO; +FREM225A; +HYDR50TA70; +L-NO1TBD6; +LEVO175T2; +MECL-86; +OMEP1CAP94; +QUET50TA4
== END ==
LOC: M PAIN 13:00
PROVIDERS: ATTEND Nurse Practitioner Family
DX: M79.18 Myalgia, other site (principal); M54.2 Cervicalgia; G89.29 Other chronic pain; Z79.890 Hormone replacement therapy; Z79.899 Other long term (current) drug therapy; Z88.2 Allergy status to sulfonamides; Z88.8 Allergy status to other drugs, medicaments and biological substances; Z88.5 Allergy status to narcotic agent; Z91.048 Other nonmedicinal substance allergy status

== ENCOUNTER → 2025-01-08 | Outpatient (CLI) | payer BC ==
[2025-01-08 10:46] LABS: THYROID STIMULATING HORMONE 1.225 uIU/ML (0.55-4.78)
[2025-01-08 10:48] LABS: FREE T4 1.34 NG/DL (0.89-1.76)
[2025-01-08 10:53] LABS: TOTAL T3 147.6 NG/DL (60.0-181.0)
== END ==
LOC: M LAB 08:57
PROVIDERS: ATTEND Nurse Practitioner Adult Health
DX: E03.9 Hypothyroidism, unspecified (principal)

== ENCOUNTER → 2025-03-11 | Outpatient (CLI) | payer BC ==
[2025-03-11 17:33] LABS: FREE T4 0.77 NG/DL (0.89-1.76); THYROID STIMULATING HORMONE 54.787 uIU/ML (0.55-4.78)
== END ==
LOC: M LAB 16:07
PROVIDERS: ATTEND Nurse Practitioner Adult Health
DX: E03.9 Hypothyroidism, unspecified (principal)

== ENCOUNTER → 2025-04-21 | Outpatient (REF) | payer BC ==
[2025-04-21 21:45] LABS: APPEARANCE, URINE CLEAR (CLEAR); BACTERIA, URINE AUTO NEGATIVE (NEGATIVE); BILIRUBIN, URINE AUTO NEGATIVE (NEGATIVE); BLOOD, URINE BLOOD 1+ (NEGATIVE); COLOR, URINE YELLOW (YELLOW); GLUCOSE, URINE (UA) AUTO NEGATIVE (NEGATIVE); KETONE, URINE AUTO NEGATIVE (NEGATIVE); LEUKOCYTE ESTERASE, URINE AUTO 2+ (NEGATIVE); MUCUS, URINE SMALL (NEGATIVE); NITRITE, URINE AUTO NEGATIVE (NEGATIVE); PROTEIN, URINE AUTO NEGATIVE (NEGATIVE); RBC, URINE AUTO 1 /HPF (0-3); SQUAMOUS EPITHELIAL CELL UR AU 1 /HPF (0-6); UROBILINOGEN, URINE AUTO 0.2 mg/dL (0.0-2.0); WBC, URINE AUTO 7 /HPF (0-3)
== END ==
LOC: M LAB REF 21:19
PROVIDERS: ATTEND Physician Assistant
DX: N39.0 Urinary tract infection, site not specified (principal)

== ENCOUNTER → 2025-06-24 | Outpatient (REF) | payer BC ==
[~2025-06-24] MED LIST changes: +CIPR250T3; +IBUP-1022 PO
[2025-06-24 13:59] LABS: APPEARANCE, URINE HAZY (CLEAR); BACTERIA, URINE AUTO 1+ (NEGATIVE); BILIRUBIN, URINE AUTO NEGATIVE (NEGATIVE); BLOOD, URINE BLOOD 1+ (NEGATIVE); GLUCOSE, URINE (UA) AUTO NEGATIVE (NEGATIVE); KETONE, URINE AUTO NEGATIVE (NEGATIVE); LEUKOCYTE ESTERASE, URINE AUTO 1+ (NEGATIVE); MUCUS, URINE SMALL (NEGATIVE); NITRITE, URINE AUTO NEGATIVE (NEGATIVE); PROTEIN, URINE AUTO NEGATIVE (NEGATIVE); RBC, URINE AUTO 1 /HPF (0-3); SPECIFIC GRAVITY URINE AUTO 1.010 (1.002-1.035); SQUAMOUS EPITHELIAL CELL UR AU 3 /HPF (0-6); UROBILINOGEN, URINE AUTO 0.2 mg/dL (0.0-2.0); WBC, URINE AUTO 4 /HPF (0-3)
== END ==
LOC: M SMT 13:03
PROVIDERS: ATTEND Nurse Practitioner Family
DX: R35.0 Frequency of micturition (principal)

== ENCOUNTER → 2025-06-27 | Outpatient (CLI) | payer BC ==
[2025-06-27 18:42] LABS: FREE T4 0.95 NG/DL (0.89-1.76)
== END ==
LOC: M LAB 17:16
PROVIDERS: ATTEND Nurse Practitioner Family
DX: E03.9 Hypothyroidism, unspecified (principal)

== ENCOUNTER → 2025-07-25 | Outpatient (CLI) | payer BC ==
[~2025-07-25] MED LIST changes: -IBUP-1022 PO; +IBUP600T42 PO
== END ==
LOC: M PLAIMG 15:50
PROVIDERS: ATTEND Pain Medicine Interventional Pain Medicine
DX: M54.12 Radiculopathy, cervical region (principal)

== ENCOUNTER → 2025-08-31 | Outpatient (CLI) | payer BC | LOC: M WHC 14:59 | PROVIDERS: ATTEND Advanced Practice Midwife | DX: Z12.31 Encounter for screening mammogram for malignant neoplasm of breast (principal) ==

== ENCOUNTER → 2025-08-31 | Outpatient (REF) | payer BC ==
[2025-09-02 15:57] LABS: HPV APTIMA Not Detected (Not Detected)
== END ==
LOC: M SFHCWAGY 17:52
PROVIDERS: ATTEND Advanced Practice Midwife
DX: Z12.4 Encounter for screening for malignant neoplasm of cervix (principal); R87.615 Unsatisfactory cytologic smear of cervix
CPT/HCPCS: 87624; G0123

== ENCOUNTER → 2025-09-15 | Outpatient (REF) | payer BC | LOC: M PLALAB 11:47 | PROVIDERS: ATTEND Advanced Practice Midwife | DX: Z12.4 Encounter for screening for malignant neoplasm of cervix (principal); L29.2 Pruritus vulvae | CPT/HCPCS: 88305; G0123 ==

== ENCOUNTER → 2025-09-27 | Outpatient (CLI) | payer BC ==
[2025-09-27 19:16] LABS: FREE T4 1.21 NG/DL (0.89-1.76)
== END ==
LOC: M LAB 17:43
PROVIDERS: ATTEND Nurse Practitioner Family
DX: E03.9 Hypothyroidism, unspecified (principal)

== ENCOUNTER → 2025-10-14 | Outpatient (CLI) | payer BC ==
[2025-10-14 12:40] LABS: BASO # 0.1 10^3/uL (0.0-0.2); BASO % 0.8 % (0.0-1.0); EOS # 0.2 10^3/uL (0.0-0.5); EOS % 2.4 % (0.0-3.0); LYMPH # 2.9 10^3/uL (1.5-5.0); LYMPH % 30.5 % (24.0-44.0); MONO # 0.6 10^3/uL (0.0-0.8); MONO % 6.5 % (2.0-8.0); NEUTROPHILS # 5.7 10^3/uL (1.5-8.5); NEUTROPHILS % 59.5 % (36.0-66.0); PLATELET COUNT, AUTOMATED 456 10^3/uL (150-450)
[2025-10-14 13:00] LABS: ALT/SGPT 27 U/L (7.0-40); AST/SGOT 20 U/L (<34); CALCIUM LEVEL 9.0 MG/DL (8.5-10.1); CARBON DIOXIDE LEVEL 22 MMOL/L (20-31); CHLORIDE LEVEL 105 MMOL/L (98-107); CHOLESTEROL LEVEL 175 MG/DL (<200); CHOLESTEROL RISK RATIO 3.29 (<5); CREATININE FOR GFR 0.74 MG/DL (0.55-1.30); GLOMERULAR FILTRATION RATE > 90.0 (>58); IRON (FE) 141 UG/DL (50-170); LDL CHOLESTEROL 96.9 MG/DL (<100); NON-HDL-C 121.9 MG/DL; PERCENT SATURATION 43.7 % (13.2-45.0); POTASSIUM SERUM 4.2 MMOL/L (3.5-5.1); SODIUM LEVEL 138 MMOL/L (136-145); TRIGLYCERIDES LEVEL 125 MG/DL (<150)
[2025-10-14 13:01] LABS: FREE T4 1.05 NG/DL (0.89-1.76)
[2025-10-14 13:02] LABS: TOTAL 25(OH) VITAMIN D 80.3 NG/ML (20.0-100.0); VITAMIN B12 LEVEL 336 PG/ML (211-911)
[2025-10-14 13:33] LABS: ESTIMATED AVERAGE GLUCOSE 117.0 MG/DL (60-110)
[2025-10-17 10:02] LABS: INSULIN TOTAL2 20.5 uIU/mL (<=18.4)
== END ==
LOC: M LAB 11:09
PROVIDERS: ATTEND Nurse Practitioner Adult Health
DX: E06.3 Autoimmune thyroiditis (principal); E78.2 Mixed hyperlipidemia; D50.9 Iron deficiency anemia, unspecified; E55.9 Vitamin D deficiency, unspecified; E66.01 Morbid (severe) obesity due to excess calories

== ENCOUNTER → 2025-10-18 | Outpatient (CLI) | payer BC ==
[2025-10-18 10:16] LABS: C REACTIVE PROTEIN QUANTITATIV 0.86 MG/DL (<1.0); RHEUMATOID FACTOR QUANT < 3.5 IU/ML (<14)
== END ==
LOC: M LAB 09:14
PROVIDERS: ATTEND Nurse Practitioner Adult Health
DX: M25.50 Pain in unspecified joint (principal)

== ENCOUNTER → 2025-10-31 | Outpatient (CLI) | payer BC ==
[~2025-10-31] MED LIST changes: +ISOVUE-370 76% 100 ML VIAL ONE
== END ==
LOC: M PLAIMG 10:39
PROVIDERS: ATTEND Nurse Practitioner Family
DX: R10.31 Right lower quadrant pain (principal)
CPT/HCPCS: 74177; Q9967

== ENCOUNTER → 2025-11-14 | Outpatient (CLI) | payer BC ==
[~2025-11-14] MED LIST changes: +BARIUM SULFATE 700 MG TABLET As Ordered ONE; +E-Z-PAQUE 96% w/w SUSP 176 GM BTL As Ordered ONE; -ISOVUE-370 76% 100 ML VIAL ONE; +VARIBAR NECTAR 40% w/v 240ML SUSP BTL As Ordered ONE; +VARIBAR PUDDING 40% w/v 230ML TUBE As Ordered ONE
== END ==
LOC: M RAD 13:35
PROVIDERS: ATTEND Nurse Practitioner Family
DX: R13.10 Dysphagia, unspecified (principal)

== ENCOUNTER 2025-11-24 11:33 | Emergency (ER) | payer BC ==
[~2025-11-24] VITALS: Ht 160 cm; Wt 118.6 kg
[~2025-11-24 11:33] MED LIST changes: -BARIUM SULFATE 700 MG TABLET As Ordered ONE; -E-Z-PAQUE 96% w/w SUSP 176 GM BTL As Ordered ONE; -VARIBAR NECTAR 40% w/v 240ML SUSP BTL As Ordered ONE; -VARIBAR PUDDING 40% w/v 230ML TUBE As Ordered ONE
[2025-11-24] MEDS: BENZONATATE 100 MG CAPSULE PO ONE (12:52)
[2025-11-24] MEDS: ACETAMINOPHEN 500 MG TAB PO ONE (12:53)
[2025-11-24] MEDS ORDERED: OSEL75CA PO (13:16)
[2025-11-24] MEDS: OSELTAMIVIR PHOSPHATE 75 MG CAP PO ONE ×2 (13:25)
[2025-11-24 13:30] VITALS: BP 143/86; TEMP 99.7; O2SAT 97
== END 2025-11-24 13:33 | disposition home or self-care (01) ==
LOC: M ED 12:57
DX: J09.X2 Influenza due to identified novel influenza A virus with other respiratory manifestations (principal); E78.5 Hyperlipidemia, unspecified; E03.9 Hypothyroidism, unspecified; K21.9 Gastro-esophageal reflux disease without esophagitis; G43.909 Migraine, unspecified, not intractable, without status migrainosus; Z88.2 Allergy status to sulfonamides; Z88.8 Allergy status to other drugs, medicaments and biological substances; Z79.899 Other long term (current) drug therapy; Z79.1 Long term (current) use of non-steroidal anti-inflammatories (NSAID); Z79.2 Long term (current) use of antibiotics